=== PATIENT | female | born 1995 | race African-American/Black ===

== ENCOUNTER 2017-07-16 18:53 | Inpatient (IN) | payer MEDICAID, OTHER ==
[2017-07-16] MEDS ORDERED: Sodium Chloride 0.9% 1000 ML 1,000 ML IV STA (19:43)
[2017-07-16] MEDS ORDERED: Sodium Chloride 0.9% 1000 ML 1,000 ML ONE (19:45)
[2017-07-16 19:49] LABS: BASOPHIL % 0.1 % (0.0-0.4); Granulocytes % 89.5 % (36.0-66.0); Lymphocytes % 5.5 % (24.0-44.0); Mean Cell Volume 85.5 fl (78-100); Mean Corpuscular Hemoglobin 29.4 pg (26-32); Mean Platelet Volume 10.3 fl (6-9.5); Monocytes % 4.9 % (0.0-12.0); Platelet Count 387 K/mm3 (150-450); Red Blood Count 4.56 M/mm3 (4.1-5.4); Red Cell Distribution Width 13.9 % (11.5-14.0); White Blood Count 18.4 K/mm3 (4.0-10.5)
[2017-07-16 19:58] LABS: Collection Type CLEAN CATCH
[2017-07-16 20:01] LABS: BLOOD UREA NITROGEN 10 mg/dL (9-20); Bilirubin NEGATIVE (NEGATIVE); Blood TRACE NON-HEM Ery/ul (0-5); CHLORIDE 99 mEq/L (98-107); COMPLETE URINE MICROSCOPIC? YES; Carbon Dioxide 19.9 mEq/L (21-32); Glucose 93 MG/DL (70-110); Glucose NEGATIVE (NEGATIVE); Leukocyte Esterase 2+ (NEGATIVE); Potassium 3.9 mEq/L (3.5-5.1); SODIUM 137 mEq/L (136-145)
[2017-07-16 20:02] LABS: ALBUMIN 2.7 g/dL (3.4-5.0); ALKALINE PHOSPHATASE 225 U/L (46-116); ANION GAP 21.9 MEQ/L (5-15); SGOT/AST 109 U/L (15-37); SGPT/ALT 76 U/L (12-78); Total Protein 8.2 gm/dL (6.4-8.2)
[2017-07-16] MEDS ORDERED: XYLOCAINE 1% HCL 20 ML MDV ONE (20:08)
[2017-07-16] MEDS ORDERED: PITOCIN 30 UNITS/ LR 500 ML 500 ML IV ONE (20:08)
[2017-07-16] MEDS ORDERED: Lactated Ringers 2,000 ML IV ONE (20:08)
--- NOTE | 2017-07-16 20:10 | ERPHSYRPT ---
- History of Present Illness Time Seen by Provider: 07/16/17 19:08 Source: patient, family (grandmother) Patient Subjective Stated Complaint: last night approx 2300 pt was working at [employer] when she lifted a box from the floor weighing around 15 lbs, she began having pain in her lower back. reports at 0150 today she began vomiting and having diarrhea. states she had approx 6 episodes of vomiting and diarrhea today. also reports periods of constipation for which she has been taking a laxative. Triage Nursing Assessment: pt is aox3, pupils perrl, radial pulses strong and equal, resps easy and non labored, lung sounds clear throughout all robin, abdomen is firm. bowel sounds are present and normoactive x4. abdominal pain to the RLQ. Physician History: CC: back pain Hx: 22 y/o with LMP 3 years ago after taking depo provera. She works at [employer]. She had back pain last night after lifting. She then had V/D all day today. She has no fever. She felt like pain with menses. No vaginal bleeding. She continues to have off and on back pain today. No local doctor. Symptoms severe. She took negative tests at home. Timing/Duration: today Allergies/Adverse Reactions: aspartame Allergy (Verified 07/16/17 19:21) Hives Home Medications: Omeprazole Magnesium [Prilosec Otc] 20 mg PO DAILY 07/16/17 [History] Hx Tetanus, Diphtheria Vaccination/Date Given: No Hx Influenza Vaccination/Date Given: No Hx Pneumococcal Vaccination/Date Given: No Immunizations Up to Date: Yes - Review of Systems Constitutional: No Fever, No Chills Eyes: No Symptoms Ears, Nose, & Throat: No Symptoms Respiratory: No Cough, No Dyspnea Cardiac: No Chest Pain Abdominal/Gastrointestinal: Abdominal Pain, Nausea, Vomiting, Diarrhea Genitourinary Symptoms: No Dysuria, No , No Vaginal Bleeding, No Vaginal Discharge Musculoskeletal: Back Pain Skin: No Rash Neurological: No Headache All Other Systems: Reviewed and Negative - Past Medical History Pertinent Past Medical History: No Respiratory History: Asthma GI Medical History: GERD Other Medical History: SICKLE CELL ANEMIA TRAIT - Past Surgical History Past Surgical History: Yes Other Surgical History: TONSILLECTOMY - Social History Smoking Status: Never smoker Exposure to second hand smoke: Yes Drug Use: none Patient Lives Alone: No - Female History Hx Last Menstrual Period: 2013 Hx Now: No - Nursing Vital Signs Nursing Vital Signs: Initial Vital Signs Temperature 97.6 F 07/16/17 19:04 Pulse Rate 112 H 07/16/17 19:04 Respiratory Rate 18 07/16/17 19:04 Blood Pressure 148/93 07/16/17 19:04 O2 Sat by Pulse Oximetry 96 07/16/17 19:04 Pain Scale Pain Intensity 9 - Physical Exam General Appearance: alert Eye Exam: PERRL/EOMI Ears, Nose, Throat Exam: normal ENT inspection, moist mucous membranes Neck Exam: normal inspection, non-tender, supple Respiratory Exam: normal breath sounds Cardiovascular Exam: regular rate/rhythm Gastrointestinal/Abdomen Exam: soft, other (full abdomen, palpable uterus with fundus high, NT) Pelvic Exam: other (SVE: 4cm, 80%, vertex, bag intact) Back Exam: normal inspection, normal range of motion, No CVA tenderness, No vertebral tenderness Extremity Exam: normal inspection, normal range of motion Neurologic Exam: alert, oriented x 3, cooperative, sensation nml, No motor deficits Skin Exam: warm, dry, No rash SpO2 Interpretation: normal SpO2: 96 Procedures - Limited OB Ultrasound Indicators: abdominal pain Results: + IUP Progress: IUP FHR 130's Cephalic AUA 40 + 2 weeks gestation Limited OB sonogram per ERMD/RDMS - Course Nursing assessment & vital signs reviewed: Yes Ordered Tests: Active Orders 24 hr Category Date Time Status Clean Catch Urine Specimen STAT Care 07/16/17 19:15 Active IV Insertion STAT Care 07/16/17 19:15 Active OB >14 WKS 1st GESTATION [US] Stat Exams 07/16/17 20:00 Ordered CBC W DIFF Stat Lab 07/16/17 19:40 Results CMP Stat Lab 07/16/17 19:40 Completed HCG QUALITATIVE,SERUM Stat Lab 07/16/17 19:40 Completed UA W/ MICROSCOPIC Stat Lab 07/16/17 19:40 Results Urine Triage Profile Stat Lab 07/16/17 20:01 Ordered Transfer Order Routine Transfer 07/16/17 Ordered Medication Summary Generic Name Dose Route Start Last Admin Trade Name Freq PRN Reason Stop Dose Admin Sodium Chloride 1,000 mls @ 999 mls/hr 07/16/17 19:43 07/16/17 19:47 Sodium Chloride 0.9% 1000 Ml IV 07/16/17 20:43 999 mls/hr .Q1H1M STA Administration Discontinued Medications Generic Name Dose Route Start Last Admin Trade Name Jazmyn PRN Reason Stop Dose Admin Sodium Chloride Confirm 07/16/17 19:45 Sodium Chloride 0.9% 1000 Ml Administered 07/16/17 19:46 Dose 1,000 mls @ ud .ROUTE .K-MED ONE Lab/Rad Data: Laboratory Result Diagrams 07/16/17 19:40 07/16/17 19:40 Laboratory Results 07/16/17 07/16/17 07/16/17 Range/Units 19:40 19:40 19:40 WBC 18.4 H (4.0-10.5) K/mm3 RBC 4.56 (4.1-5.4) M/mm3 Hgb 13.4 (12.0-16.0) gm/dl Hct 39.0 (35-47) % MCV 85.5 (78-100) fl MCH 29.4 (26-32) pg MCHC 34.4 (32-36) g/dl RDW 13.9 (11.5-14.0) % Plt Count 387 (150-450) K/mm3 MPV 10.3 H (6-9.5) fl Gran % 89.5 H (36.0-66.0) % Lymphocytes % 5.5 L (24.0-44.0) % Monocytes % 4.9 (0.0-12.0) % Eosinophils % 0.0 (0.00-5.0) % Basophils % 0.1 (0.0-0.4) % Basophils # 0.01 (0-0.4) Sodium 137 (136-145) mEq/L Potassium 3.9 (3.5-5.1) mEq/L Chloride 99 (98-107) mEq/L Carbon Dioxide 19.9 L (21-32) mEq/L Anion Gap 21.9 H (5-15) MEQ/L BUN 10 (9-20) mg/dL Creatinine 0.79 (0.55-1.30) mg/dl Estimated GFR > 60 ML/MIN Glucose 93 (70-110) MG/DL Calcium 9.4 (8.5-10.1) mg/dL Total Bilirubin 1.30 H (0.2-1.0) mg/dL AST 109 H (15-37) U/L ALT 76 (12-78) U/L Alkaline Phosphatase 225 H (46-116) U/L Serum Total Protein 8.2 (6.4-8.2) gm/dL Albumin 2.7 L (3.4-5.0) g/dL Serum , Qual POSITIVE (Negative) Ur Collection Type Urine Color Urine Appearance Urine pH Ur Specific [place] Urine Protein Urine Ketones Urine Blood Urine Nitrite Urine Bilirubin Urine Urobilinogen Ur Leukocyte Esterase Urine Culture Reflexed Urine Glucose Specimen Received 07/16/17 Range/Units 19:40 WBC (4.0-10.5) K/mm3 RBC (4.1-5.4) M/mm3 Hgb (12.0-16.0) gm/dl Hct (35-47) % MCV (78-100) fl MCH (26-32) pg MCHC (32-36) g/dl RDW (11.5-14.0) % Plt Count (150-450) K/mm3 MPV (6-9.5) fl Gran % (36.0-66.0) % Lymphocytes % (24.0-44.0) % Monocytes % (0.0-12.0) % Eosinophils % (0.00-5.0) % Basophils % (0.0-0.4) % Basophils # (0-0.4) Sodium (136-145) mEq/L Potassium (3.5-5.1) mEq/L Chloride (98-107) mEq/L Carbon Dioxide (21-32) mEq/L Anion Gap (5-15) MEQ/L BUN (9-20) mg/dL Creatinine (0.55-1.30) mg/dl Estimated GFR ML/MIN Glucose (70-110) MG/DL Calcium (8.5-10.1) mg/dL Total Bilirubin (0.2-1.0) mg/dL AST (15-37) U/L ALT (12-78) U/L Alkaline Phosphatase (46-116) U/L Serum Total Protein (6.4-8.2) gm/dL Albumin (3.4-5.0) g/dL Serum , Qual (Negative) Ur Collection Type Pending Urine Color Pending Urine Appearance Pending Urine pH Pending Ur Specific [place] Pending Urine Protein Pending Urine Ketones Pending Urine Blood Pending Urine Nitrite Pending Urine Bilirubin Pending Urine Urobilinogen Pending Ur Leukocyte Esterase Pending Urine Culture Reflexed Pending Urine Glucose Pending Specimen Received Pending - Progress Progress Note: 07/16/17 20:10 Pt and grandmother informed of . Called Dr Negron [facility] distribution center assistant and will send to Labor Room. Counseled pt/family regarding: diagnosis, need for follow-up - Departure Time of Disposition: 20:10 Departure Disposition: Observation Clinical Impression: 40 weeks gestation of , Active labor at term Condition: Fair Critical Care Time: No
[2017-07-16] MEDS ORDERED: OMNIPEN 2 GM / NACL 100ML 100 ML ONE (20:19)
[2017-07-16] MEDS ORDERED: Zofran 4 MG/2 ML VIAL IV PRN (20:28)
[2017-07-16] MEDS ORDERED: XYLOCAINE 1% HCL 20 ML MDV IJ PRN (20:28)
[2017-07-16] MEDS ORDERED: OMNIPEN 2 GM / NACL 100ML 100 ML IV ONE (20:28)
[2017-07-16 20:30] LABS: Mean Cell Volume 85.8 fl (78-100); Mean Corpuscular Hemoglobin 29.6 pg (26-32); Mean Platelet Volume 9.5 fl (6-9.5); Platelet Count 368 K/mm3 (150-450); Red Blood Count 4.43 M/mm3 (4.1-5.4); Red Cell Distribution Width 13.9 % (11.5-14.0); White Blood Count 17.3 K/mm3 (4.0-10.5)
[2017-07-16] MEDS ORDERED: PITOCIN 30 UNITS/ LR 500 ML 500 ML IV SCH (20:30)
[2017-07-16] MEDS: Lactated Ringers 1,000 ML IV SCH ×2 (20:33→23:43)
[2017-07-16 20:34] LABS: ADD URINE CULTURE? YES (NO); Bacteria MODERATE /HPF (NEGATIVE); Epithelial Cells FEW /HPF (FEW); Mucus SLIGHT /HPF (NEGATIVE); WBC 50-100 /HPF (0-5)
[2017-07-16] MEDS ORDERED: Lactated Ringers 1,000 ML IV ONE (21:49)
[2017-07-16] MEDS ORDERED: Ephedrine Sulfate 50 MG/ML IV PRN (21:49)
[2017-07-16] MEDS: OB EPIDURAL NAROPIN/SUFENTANIL IN NACL EPIDURAL PRN (21:54)
[2017-07-17] MEDS: OMNIPEN 1GM / NaCl 100ML 100 ML IV SCH ×3 (01:00→08:25)
[2017-07-17] MEDS: TYLENOL EXTRA STRENGTH 500 MG PO PRN (03:27)
[2017-07-17] MEDS: Lactated Ringers 1,000 ML IV SCH (04:17)
[2017-07-17] MEDS: OB EPIDURAL NAROPIN/SUFENTANIL IN NACL EPIDURAL PRN (06:08)
--- NOTE | 2017-07-17 09:36 | XRAY ---
Indication: Back pain. Two-dimensional OB ultrasound performed. Comparison: None There is a single viable intrauterine in cephalic presentation. Normal four-chamber heart with heart rate 135 BPM. Normal three-vessel cord. Cord insertion not visualized. Visualized spine, stomach, kidneys, and bladder are unremarkable. Placenta is posterior without abruption/previa. BPD measures 9.20 cm corresponding to 37 weeks 3 days. HC measures 33.90 cm corresponding to 39 weeks 0 days. AC measures 33.49 cm corresponding to 37 weeks 3 days. FL measures 7.59 cm corresponding to 38 weeks 6 days. LOUIE is 9.8 cm. Impression: Single viable intrauterine with mean gestational age 38 weeks 1 day. Expected date confinement is July 29, 2017. Comment: Preliminary report was given.
[2017-07-17] MEDS ORDERED: NORCO 5/325 MG PO PRN (10:52)
[2017-07-17] MEDS ORDERED: Adacel Vial IM ONE (10:52)
[2017-07-17] MEDS ORDERED: Anucort-HC SUPPOSITORY PR PRN (10:52)
[2017-07-17] MEDS ORDERED: Mylicon 80MG PO PRN (10:52)
[2017-07-17] MEDS ORDERED: Dulcolax 10 MG SUPP PR PRN (10:52)
[2017-07-17] MEDS ORDERED: TUCKS TP PRN (10:52)
[2017-07-17] MEDS ORDERED: Restoril 15 MG PO PRN (10:52)
[2017-07-17] MEDS ORDERED: CORTISONE 1% CREAM TP PRN (10:52)
[2017-07-17] MEDS: Dermoplast Spray TP PRN (17:04)
[2017-07-17] MEDS: MOTRIN 400 MG PO PRN (20:23)
[2017-07-17] MEDS: Colace 100 MG PO SCH (21:10)
[2017-07-18] MEDS: TYLENOL EXTRA STRENGTH 500 MG PO PRN ×2 (01:23→12:33)
[2017-07-18 01:54] LABS: Hepatitis B Sur Ag Screen Non Reactive (Non Reactive)
[2017-07-18 05:41] LABS: Mean Cell Volume 86.9 fl (78-100); Mean Platelet Volume 9.5 fl (6-9.5); Platelet Count 261 K/mm3 (150-450); Red Blood Count 3.21 M/mm3 (4.1-5.4); Red Cell Distribution Width 13.7 % (11.5-14.0); White Blood Count 14.6 K/mm3 (4.0-10.5)
[2017-07-18 05:43] LABS: Mean Corpuscular Hemoglobin 29.5 pg (26-32)
[2017-07-18 06:12] LABS: Eosinophil 1 % (0.00-3.0); Platelet Estimate NORMAL (NORMAL); Total Cells Counted 100; Toxic Granulation 1+
[2017-07-18] MEDS: Colace 100 MG PO SCH ×2 (09:13→21:28)
[2017-07-18] MEDS: FERREX 150 PO SCH (09:14)
[2017-07-18] MEDS: MOTRIN 400 MG PO PRN (09:14)
[2017-07-18] MEDS: BACTRIM DS TABLET PO SCH ×2 (13:09→21:28)
[2017-07-18] MEDS ORDERED: M-M-R II Vaccine With Diluent SQ ONE (23:39)
[2017-07-19] MEDS: MOTRIN 400 MG PO PRN (00:01)
[2017-07-19] MEDS: TYLENOL EXTRA STRENGTH 500 MG PO PRN ×2 (02:20→14:13)
--- NOTE | 2017-07-19 08:25 | PCM.DS ---
Discharge Summary Date of Admission: 07/16/17 20:07 Admitting Physician: GUILLAUME CORTEZ Consults: Consults on Case 07/16/17 21:49 Notify Anesthesia Provider PRN Primary Care Provider: GUILLAUME CORTEZ Allergies Allergies aspartame Allergy (Verified 07/16/17 21:02) Hives latex Adverse Reaction (Verified 07/17/17 05:49) latex condoms make her have swelling and redness of vagina. Hospital Summary - Hospital Course Hospital Course: Pt admitted in labor, did not know she was ! Delivered viable 7lb 120z male vaginally. Denies dizziness. Pain controlled with tylenol. Bottle feeding. Bleeding is decreasing. Wants to go home. - Vitals & Intake/Output Vital Signs: Vital Signs Temperature 98.6 F 07/19/17 02:00 Pulse Rate 88 07/19/17 02:00 Respiratory Rate 20 07/19/17 02:00 Blood Pressure 135/88 07/19/17 02:00 O2 Sat by Pulse Oximetry 98 07/18/17 14:00 Oxygen-Last Documented O2 Percentage 100% Intake & Output: Intake & Output 07/16/17 07/17/17 07/18/17 07/19/17 11:59 11:59 11:59 11:59 Intake Total 3537 850 1650 Output Total 300 Balance 3237 850 1650 Weight 108.409 kg - Lab Result Diagrams: 07/18/17 05:11 07/16/17 19:40 Lab Results-Last 24 Hrs: Lab Results-Last 24 Hours 07/16/17 Range/Units 20:20 HIV Ag/Ab Combo Qual Non Reactive (Non Reactive) HIV Ag/Ab Interpret See Result Note: Rubella Immune Status Equivocal H Rubella IgG Antibody 6 IU/mL Micro Results-Entire Visit: Microbiology 07/16/17 23:00 Urine Culture - Final Catherized Escherichia Coli Discharge Exam General Appearance: no apparent distress, alert, obese Neurologic Exam: oriented x 3, cooperative Skin Exam: normal color, warm, dry Respiratory Exam: normal breath sounds, lungs clear, No crackles/rales, No rhonchi, No wheezing Cardiovascular Exam: regular rate/rhythm, normal heart sounds, No murmur Gastrointestinal/Abdomen Exam: soft, other (fundus firm under umbilicus) Extremity Exam: normal inspection, No pedal edema, No swelling Final Diagnosis/Problem List - Final Discharge Diagnosis/Problem (1) Vaginal delivery Current Visit: Yes Status: Acute Assessment & Plan: Doing great, home today. f/u wtih Dr. Cortez in 4-6 wks. - Discharge Disposition: Home, Self-Care Condition: Fair Prescriptions: New Smz/Tmp Ds Tablet [Bactrim Ds Tablet] 1 tab PO BID #12 tablet Ferrous Sulfate 325 mg PO DAILY #30 tablet Continue Omeprazole Magnesium [Prilosec Otc] 20 mg PO DAILY Follow up with: GUILLAUME CORTEZ MD [Primary Care Provider] - 1 Week
[2017-07-19] MEDS: Colace 100 MG PO SCH (09:41)
[2017-07-19] MEDS: FERREX 150 PO SCH (09:41)
[2017-07-19] MEDS: BACTRIM DS TABLET PO SCH (09:42)
[2017-07-19 09:57] VITALS: PULSE 92; O2SAT 99
[2017-07-19] MEDS: Dermoplast Spray TP PRN (10:11)
[2017-07-19 14:44] VITALS: BP 124/81
== END 2017-07-19 15:08 | disposition home or self-care (01) | DRG 775 ==
LOC: ED 18:53 → OB 20:07
PROVIDERS: ADMIT Family Medicine; ATTEND Family Medicine
PROC: 10E0XZZ Delivery of Products of Conception, External Approach (ICD-10-PCS; principal; 2017-07-17)
DX: O80 Encounter for full-term uncomplicated delivery (principal); Z3A.38 38 weeks gestation of pregnancy; Z37.0 Single live birth
CPT/HCPCS: 01967; 36000; 36415; 76805; 76815; 80053; 80055; 80307; 81000; 84703; 85025; 87077; 87086; 87186; 90471; 90707; 90715; 94799; 96360; 96372; 99285; G0378; J0290; J2590; J2795; A9270-GY

== ENCOUNTER 2019-09-18 19:35 | Emergency (ER) | payer OTHER ==
[2019-09-18 19:55] VITALS: PULSE 140
--- NOTE | 2019-09-18 20:52 | ERPHSYRPT ---
- History of Present Illness Time Seen by Provider: 09/18/19 19:55 Source: patient, family Exam Limitations: no limitations Patient Subjective Stated Complaint: pt has had flu like symptoms since this am , pt states she is 32 weeks and is concernes about her fever of 100.8 Triage Nursing Assessment: pt rates pain as 10/10 generally to body Physician History: cough, congestion, bodyaches, fever since this morning. patient is 32 weeks . Timing/Duration: today Severity: moderate Modifying Factors: Improves With: medication Associated Symptoms: nausea, cough, chills, fever, malaise, No abdominal pain, No shortness of breath, No heartburn, No diaphoresis, No chest pain, No headaches, No loss of appetite, No rash, No syncope Allergies/Adverse Reactions: aspartame Allergy (Verified 09/18/19 19:55) Hives latex Adverse Reaction (Verified 09/18/19 19:55) latex condoms make her have swelling and redness of vagina. Hx Tetanus, Diphtheria Vaccination/Date Given: No Hx Influenza Vaccination/Date Given: No Hx Pneumococcal Vaccination/Date Given: No - Review of Systems Constitutional: Chills Eyes: No Symptoms Ears, Nose, & Throat: No Symptoms Respiratory: Cough, No Dyspnea Cardiac: No Chest Pain, No Edema, No Syncope Abdominal/Gastrointestinal: No Abdominal Pain, No Nausea, No Vomiting, No Diarrhea Genitourinary Symptoms: No Dysuria Musculoskeletal: No Back Pain, No Neck Pain Skin: No Rash Neurological: No Dizziness, No Focal Weakness, No Sensory Changes Psychological: No Symptoms Endocrine: No Symptoms All Other Systems: Reviewed and Negative - Past Medical History Pertinent Past Medical History: No Cardiac History: No Pertinent History Respiratory History: Asthma Musculoskeletal History: No Pertinent History GI Medical History: GERD Psycho-Social History: No Pertinent History Female Reproductive Disorders: No Pertinent History Other Medical History: SICKLE CELL ANEMIA TRAIT - Past Surgical History Past Surgical History: Yes Neuro Surgical History: No Pertinent History Cardiac: No Pertinent History Respiratory: No Pertinent History Gastrointestinal: No Pertinent History Genitourinary: No Pertinent History Musculoskeletal: No Pertinent History Female Surgical History: No Pertinent History Other Surgical History: TONSILLECTOMY - Social History Smoking Status: Never smoker Exposure to second hand smoke: No Drug Use: none Patient Lives Alone: No - Female History Hx Now: Yes Expected Date of Delivery: 11/10/19 - Nursing Vital Signs Nursing Vital Signs: Initial Vital Signs Temperature 100.8 F 09/18/19 19:44 Pulse Rate 140 H 09/18/19 19:44 Respiratory Rate 18 09/18/19 19:44 Blood Pressure 102/60 09/18/19 19:44 O2 Sat by Pulse Oximetry 97 09/18/19 19:44 Pain Scale Pain Intensity 10 - Physical Exam General Appearance: no apparent distress, alert Eye Exam: PERRL/EOMI, eyes nml inspection Ears, Nose, Throat Exam: normal ENT inspection, TMs normal, moist mucous membranes, pharyngeal erythema Neck Exam: normal inspection, non-tender, supple, full range of motion Respiratory Exam: normal breath sounds, lungs clear, No respiratory distress Cardiovascular Exam: regular rate/rhythm, normal heart sounds, normal peripheral pulses Gastrointestinal/Abdomen Exam: soft, normal bowel sounds, other (gravid uterus) , No tenderness, No mass Back Exam: normal inspection, normal range of motion, No CVA tenderness, No vertebral tenderness Extremity Exam: normal inspection, normal range of motion, pelvis stable Neurologic Exam: alert, oriented x 3, cooperative, normal mood/affect, nml cerebellar function, nml station & gait, sensation nml, No motor deficits Skin Exam: normal color, warm, dry, No rash Lymphatic Exam: No adenopathy SpO2: 97 - Course Nursing assessment & vital signs reviewed: Yes Ordered Tests: Active Orders 24 hr Category Date Time Status CULTURE,URINE Stat Lab 09/18/19 20:10 Received UA W/RFX UR CULTURE Stat Lab 09/18/19 20:10 Completed Medication Summary Discontinued Medications Generic Name Dose Route Start Last Admin Trade Name Freq PRN Reason Stop Dose Admin Acetaminophen 500 mg 09/18/19 20:52 Tylenol Extra Strength 500 Mg PO 09/18/19 20:53 STAT STA Lab/Rad Data: Laboratory Results 09/18/19 09/18/19 Range/Units 20:10 20:07 Urine Color YELLOW (YELLOW) Urine Appearance CLOUDY (CLEAR) Urine pH 7.0 (5-6) Ur Specific [place] 1.009 (1.005-1.025) Urine Protein NEGATIVE (Negative) Urine Ketones NEGATIVE (NEGATIVE) Urine Blood SMALL (0-5) Spike/ul Urine Nitrite NEGATIVE (NEGATIVE) Urine Bilirubin NEGATIVE (NEGATIVE) Urine Urobilinogen 2 (0-1) mg/dL Ur Leukocyte Esterase LARGE (NEGATIVE) Urine WBC (Auto) 51-100 (0-5) /HPF Urine RBC (Auto) 3-5 (0-2) /HPF U Hyaline Cast (Auto) 0-2 (0-2) /LPF U Epithel Cells (Auto) MODERATE (FEW) /HPF Urine Bacteria (Auto) RARE (NEGATIVE) /HPF Unidentified Crystals 25-50 (NEGATIVE) /HPF Other Casts (Auto) 0-2 (NEGATIVE) /LPF Urine Mucus (Auto) SLIGHT (NEGATIVE) /HPF Urine Culture Reflexed YES (NO) Urine Glucose NEGATIVE (NEGATIVE) mg/dL Influenza Type A Ag NEGATIVE (NEGATIVE) Influenza Type B Ag NEGATIVE (NEGATIVE) RSV (PCR) NEGATIVE (Negative) Group A Strep Antibody NEGATIVE (NEGATIVE) - Progress Progress: improved Progress Note: 09/18/19 21:10 noted life or limb and condition on discharge. Advised patient to follow up with LOW VOLTAGE TECHNICIAN as soon as possible Counseled pt/family regarding: lab results, diagnosis, need for follow-up - Departure Departure Disposition: Home Clinical Impression: UTI (urinary tract infection) Qualifiers: Urinary tract infection type: site unspecified Hematuria presence: without hematuria Qualified Code(s): N39.0 - Urinary tract infection, site not specified Upper respiratory infection Qualifiers: URI type: unspecified URI Qualified Code(s): J06.9 - Acute upper respiratory infection, unspecified Condition: Good Critical Care Time: No Referrals: JL MATHEWS [Primary Care Provider] - 09/20/19 Instructions: Fever, Adult (DC), Urinary Tract Infections in Adults, Viral Upper Respiratory Infection, Adult (DC) Additional Instructions: See. LOW VOLTAGE TECHNICIAN as soon as possible Prescriptions: Amoxicillin 500 mg PO TID 7 Days #21 tablet
[2019-09-18 20:53] LABS: INFLUENZA A NEGATIVE (NEGATIVE); INFLUENZA B NEGATIVE (NEGATIVE); RESPIRATORY SYNCTIAL VIRUS NEGATIVE (Negative)
[2019-09-18 21:04] LABS: Appearance CLOUDY (CLEAR); Bacteria RARE /HPF (NEGATIVE); Bilirubin NEGATIVE (NEGATIVE); Blood SMALL Ery/ul (0-5); Crystals Unidentified 25-50 /HPF (NEGATIVE); Epithelial Cells MODERATE /HPF (FEW); Glucose NEGATIVE (NEGATIVE); Hyaline Casts 0-2 /LPF (0-2); Ketones NEGATIVE (NEGATIVE); Leukocyte Esterase LARGE (NEGATIVE); Mucus SLIGHT /HPF (NEGATIVE); Nitrite NEGATIVE (NEGATIVE); Protein,Urine Dip NEGATIVE (Negative); Specific Gravity 1.009 (1.005-1.025); Urobilinogen 2 mg/dL (0-1); WBC 51-100 /HPF (0-5)
[2019-09-18] MEDS ORDERED: TYLENOL EXTRA STRENGTH 500 MG ONE (21:27)
[2019-09-18] MEDS ORDERED: AMOXIL 500 MG ONE (21:27)
[2019-09-18] MEDS: TYLENOL EXTRA STRENGTH 500 MG PO STA (21:29)
[2019-09-18] MEDS: AMOXIL 500 MG PO ONE (21:30)
[2019-09-18 21:55] VITALS: BP 125/64; O2SAT 98
== END 2019-09-18 21:54 | disposition home or self-care (01) ==
LOC: ED 19:35
DX: N39.0 Urinary tract infection, site not specified (principal); J06.9 Acute upper respiratory infection, unspecified
CPT/HCPCS: 81001; 87077; 87086; 87186; 87631; 87651; 99283; A9270-GY

== ENCOUNTER 2019-09-28 13:43 | Observation (INO) | payer OTHER ==
[2019-09-28] MEDS ORDERED: Lactated Ringers 1,000 ML IV ONE (14:06)
[2019-09-28] MEDS ORDERED: ROCEPHIN 1 Gm-D5w 50 ml Bag** 1 G/50 ML IVPB IV SCH ×2 (14:15→16:00)
[2019-09-28 14:24] LABS: Absolute Neutrophil Ct (ANC) 8.89 (1.4-6.9); BASOPHIL % 0.2 % (0.0-0.4); Basophil (Absolute #) 0.02 (0-0.4); Eosinophil % 1.8 % (0.00-5.0); Eosinophil (Absolute #) 0.21 (0-0.5); Hematocrit 35.3 % (35-47); Hemoglobin 12.4 gm/dl (12.0-16.0); Lymphocyte (Absolute #) 2.01 (1.0-4.6); Lymphocytes % 17.1 % (24.0-44.0); Mean Cell Volume 85.1 fl (78-100); Mean Corpuscular Hemoglobin 29.9 pg (26-32); Mean Corpuscular Hgb Concent. 35.1 g/dl (32-36); Mean Platelet Volume 8.9 fl (7.5-11.0); Monocyte (Absolute #) 0.64 (0.0-1.3); Monocytes % 5.4 % (0.0-12.0); Neutrophil % 75.5 % (36.0-66.0); Platelet Count 369 K/mm3 (150-450); Red Blood Count 4.15 M/mm3 (4.1-5.4); Red Cell Distribution Width 13.4 % (11.5-14.0); White Blood Count 11.8 K/mm3 (4.0-10.5)
[2019-09-28 14:37] LABS: ALBUMIN 3.8 g/dL (3.5-5.0); ALKALINE PHOSPHATASE 113 U/L (38-126); ANION GAP 12.4 MEQ/L (5-15); BLOOD UREA NITROGEN 2 mg/dL (7-17); CHLORIDE 107 mmol/L (98-107); Calcium 9.2 mg/dL (8.4-10.2); Carbon Dioxide 21 mmol/L (22-30); Creatinine 1 0.41 mg/dL (0.52-1.04); Glucose 86 mg/dL (74-106); MAGNESIUM 1.7 mg/dL (1.6-2.3); Potassium 3.9 mmol/L (3.5-5.1); SGOT/AST 34 U/L (14-36); SGPT/ALT 28 U/L (0-35); SODIUM 136 mmol/L (137-145); Total Protein 7.7 g/dL (6.3-8.2); Uric Acid 4.2 mg/dL (2.6-6.0)
[2019-09-28 14:56] VITALS: BP 117/71; PULSE 91
--- NOTE | 2019-09-28 14:58 | XRAY ---
Indication: Size greater than dates. 2-dimensional OB ultrasound performed. Comparison: None for this . There is a single viable intrauterine in cephalic presentation. heart rate 138 BPM. Posterior placenta without abruption/previa. BPD measures 8.76 cm corresponding to 35 weeks 3 days. HC measures 32.08 cm corresponding to 36 weeks 1 day. AC measures 29.09 cm corresponding to 33 weeks 1 day. FL measures 6.77 cm corresponding to 34 weeks 6 days. Estimated weight 5 lbs. 3 oz., +/-12 ounces. Approximate 51 percentile. LOUIE is 13.8 cm. Impression: Single viable intrauterine with mean gestational age 34 weeks 6 days. Expected date confinement is November 03, 2019.
== END 2019-09-28 18:45 | disposition home or self-care (01) ==
LOC: OB 13:43
PROVIDERS: ADMIT Family Medicine; ATTEND Family Medicine
DX: Z34.83 Encounter for supervision of other normal pregnancy, third trimester (principal)
CPT/HCPCS: 36415; 76815; 80053; 83735; 84550; 85025; G0378; J0696

== ENCOUNTER 2019-10-04 16:56 | Observation (INO) | payer OTHER ==
[2019-10-04] MEDS ORDERED: Lactated Ringers 1,000 ML IV SCH ×2 (18:00→21:00)
[2019-10-04 18:13] LABS: Mean Cell Volume 85.2 fl (78-100); Mean Corpuscular Hemoglobin 29.2 pg (26-32); Mean Corpuscular Hgb Concent. 34.3 g/dl (32-36); Mean Platelet Volume 9.3 fl (7.5-11.0); Platelet Count 365 K/mm3 (150-450); Red Blood Count 4.11 M/mm3 (4.1-5.4); Red Cell Distribution Width 13.4 % (11.5-14.0); White Blood Count 12.6 K/mm3 (4.0-10.5)
[2019-10-04 18:42] LABS: Amphetamine,Urine NEGATIVE (NEGATIVE); Barbiturate,Urine NEGATIVE (NEGATIVE); Benzodiazepine,Urine NEGATIVE (NEGATIVE); Cocaine,Urine NEGATIVE (NEGATIVE); Methadone,Urine NEGATIVE (NEGATIVE); Opiate,Urine NEGATIVE (NEGATIVE); PCP,Urine NEGATIVE (NEGATIVE); THC,Urine NEGATIVE (NEGATIVE)
[2019-10-04] MEDS ORDERED: Phenergan 25 MG INJ IV ONE (19:00)
[2019-10-04 19:27] LABS: ALKALINE PHOSPHATASE 108 U/L (38-126); ANION GAP 13.5 MEQ/L (5-15); BLOOD UREA NITROGEN 6 mg/dL (7-17); CHLORIDE 104 mmol/L (98-107); Calcium 9.4 mg/dL (8.4-10.2); Carbon Dioxide 22 mmol/L (22-30); Creatinine 1 0.45 mg/dL (0.52-1.04); Glucose 83 mg/dL (74-106); Potassium 3.9 mmol/L (3.5-5.1); SGOT/AST 26 U/L (14-36); SGPT/ALT 17 U/L (0-35); SODIUM 136 mmol/L (137-145)
[2019-10-04] MEDS ORDERED: Phenergan 25 MG INJ IV PRN (20:30)
[2019-10-04] MEDS ORDERED: MORPHINE SULFATE 4 MG INJ ONE (20:36)
[2019-10-04] MEDS ORDERED: MORPHINE SULFATE 4 MG INJ IV ONE (20:40)
[2019-10-04] MEDS ORDERED: TYLENOL 325 MG PO PRN (20:40)
[2019-10-04] MEDS: KEFLEX 500 MG PO SCH (21:36)
[2019-10-04 22:16] VITALS: O2SAT 98
[2019-10-05 08:16] VITALS: BP 101/65; PULSE 88
[2019-10-05] MEDS: KEFLEX 500 MG PO SCH (09:00)
== END 2019-10-05 09:10 | disposition home or self-care (01) ==
LOC: OB 16:56
PROVIDERS: ADMIT Family Medicine; ATTEND Family Medicine
DX: Z34.83 Encounter for supervision of other normal pregnancy, third trimester (principal)
CPT/HCPCS: 36415; 59025; 80053; 80307; 84550; 85027; G0378; J2270; J2550; A9270-GY

== ENCOUNTER 2019-10-19 13:30 | Observation (INO) | payer OTHER ==
[2019-10-19 13:55] VITALS: BP 116/72; PULSE 100
== END 2019-10-19 14:18 | disposition home or self-care (01) ==
LOC: OB 13:30
PROVIDERS: ADMIT Family Medicine; ATTEND Family Medicine
DX: Z34.83 Encounter for supervision of other normal pregnancy, third trimester (principal)
CPT/HCPCS: 59025; G0378

== ENCOUNTER 2019-10-22 02:23 | Observation (INO) | payer OTHER ==
[2019-10-22] MEDS ORDERED: XYLOCAINE 1% HCL 20 ML MDV IJ PRN (02:41)
[2019-10-22] MEDS ORDERED: TYLENOL EXTRA STRENGTH 500 MG PO PRN (02:41)
[2019-10-22] MEDS ORDERED: PITOCIN 30 UNITS/ LR 500 ML 500 ML IV SCH (03:00)
[2019-10-22 03:12] LABS: Absolute Neutrophil Ct (ANC) 14.73 (1.4-6.9); BASOPHIL % 0.1 % (0.0-0.4); Basophil (Absolute #) 0.01 (0-0.4); Eosinophil % 0.7 % (0.00-5.0); Eosinophil (Absolute #) 0.13 (0-0.5); Hematocrit 35.1 % (35-47); Hemoglobin 12.3 gm/dl (12.0-16.0); Lymphocyte (Absolute #) 2.28 (1.0-4.6); Lymphocytes % 12.7 % (24.0-44.0); Mean Cell Volume 84.8 fl (78-100); Mean Corpuscular Hemoglobin 29.7 pg (26-32); Mean Platelet Volume 9.2 fl (7.5-11.0); Monocyte (Absolute #) 0.84 (0.0-1.3); Monocytes % 4.7 % (0.0-12.0); Neutrophil % 81.8 % (36.0-66.0); Platelet Count 386 K/mm3 (150-450); Red Blood Count 4.14 M/mm3 (4.1-5.4); Red Cell Distribution Width 13.7 % (11.5-14.0)
[2019-10-22] MEDS ORDERED: OMNIPEN 2 GM / NACL 100ML 100 ML ONE (03:12)
[2019-10-22] MEDS: Lactated Ringers 1,000 ML IV SCH ×2 (03:16→12:49)
[2019-10-22] MEDS ORDERED: OMNIPEN 2 GM IV ONE (03:30)
[2019-10-22 03:43] LABS: Amphetamine,Urine NEGATIVE (NEGATIVE); Barbiturate,Urine NEGATIVE (NEGATIVE); Benzodiazepine,Urine NEGATIVE (NEGATIVE); Cocaine,Urine NEGATIVE (NEGATIVE); Methadone,Urine NEGATIVE (NEGATIVE); Opiate,Urine NEGATIVE (NEGATIVE); PCP,Urine NEGATIVE (NEGATIVE); THC,Urine NEGATIVE (NEGATIVE)
[2019-10-22] MEDS: OMNIPEN 1GM / NaCl 100ML 100 ML IV SCH ×3 (07:46→15:04)
--- NOTE | 2019-10-22 12:15 | XRAY ---
Indication: Possible rupture of membranes. Ultrasound biophysical profile study was performed. There is a single viable intrauterine with heart rate 128 BPM. Four-quadrant LOUIE is 19.8 cm. 2 points given for breathing, movements, tone, and qualitative amniotic fluid volume. Impression: Total biophysical profile score is 8 out of 8.
[2019-10-22 17:13] VITALS: PULSE 86
[2019-10-22 17:35] VITALS: BP 120/77
== END 2019-10-22 16:30 | disposition home or self-care (01) ==
LOC: EEVIPCON 02:23 → OB 02:23
PROVIDERS: ADMIT Family Medicine; ATTEND Family Medicine
DX: Z34.83 Encounter for supervision of other normal pregnancy, third trimester (principal)
CPT/HCPCS: 36415; 76819; 80307; 85025; 87340; G0378; J0290

== ENCOUNTER 2019-10-25 15:12 | Observation (INO) | payer OTHER ==
[2019-10-25 16:07] VITALS: BP 109/69; PULSE 106
[2019-10-25 16:09] LABS: Appearance SLIGHTLY CLOUDY (CLEAR); Bacteria FEW /HPF (NEGATIVE); Bilirubin NEGATIVE (NEGATIVE); Blood NEGATIVE Ery/ul (0-5); Epithelial Cells FEW /HPF (FEW); Glucose NEGATIVE (NEGATIVE); Ketones NEGATIVE (NEGATIVE); Leukocyte Esterase LARGE (NEGATIVE); Nitrite NEGATIVE (NEGATIVE); Protein,Urine Dip NEGATIVE (Negative); Specific Gravity 1.012 (1.005-1.025); Urobilinogen 4 mg/dL (0-1)
[2019-10-25 16:56] LABS: Amphetamine,Urine NEGATIVE (NEGATIVE); Barbiturate,Urine NEGATIVE (NEGATIVE); Benzodiazepine,Urine NEGATIVE (NEGATIVE); Cocaine,Urine NEGATIVE (NEGATIVE); Methadone,Urine NEGATIVE (NEGATIVE); Opiate,Urine NEGATIVE (NEGATIVE); PCP,Urine NEGATIVE (NEGATIVE); THC,Urine NEGATIVE (NEGATIVE)
== END 2019-10-25 17:35 | disposition home or self-care (01) ==
LOC: OB 15:12
PROVIDERS: ADMIT Family Medicine; ATTEND Family Medicine
DX: Z34.83 Encounter for supervision of other normal pregnancy, third trimester (principal)
CPT/HCPCS: 80307; 81001; 87086; G0378

== ENCOUNTER 2019-11-05 04:20 | Inpatient (IN) | payer OTHER ==
[2019-11-05] MEDS ORDERED: Cervidil 10 MG VAG SCH (22:00)
[2019-11-05] MEDS ORDERED: Zofran 4 MG/2 ML VIAL IV PRN (22:00)
[2019-11-05] MEDS ORDERED: BRETHINE 1 MG/ML SQ PRN (22:00)
[2019-11-05 22:34] LABS: Amphetamine,Urine NEGATIVE (NEGATIVE); Barbiturate,Urine NEGATIVE (NEGATIVE); Benzodiazepine,Urine NEGATIVE (NEGATIVE); Cocaine,Urine NEGATIVE (NEGATIVE); Methadone,Urine NEGATIVE (NEGATIVE); Opiate,Urine NEGATIVE (NEGATIVE); PCP,Urine NEGATIVE (NEGATIVE); THC,Urine NEGATIVE (NEGATIVE)
[2019-11-05 22:52] LABS: Absolute Neutrophil Ct (ANC) 9.44 (1.4-6.9); BASOPHIL % 0.1 % (0.0-0.4); Basophil (Absolute #) 0.01 (0-0.4); Eosinophil % 1.3 % (0.00-5.0); Eosinophil (Absolute #) 0.16 (0-0.5); Hematocrit 36.5 % (35-47); Hemoglobin 12.9 gm/dl (12.0-16.0); Lymphocyte (Absolute #) 2.04 (1.0-4.6); Lymphocytes % 16.4 % (24.0-44.0); Mean Cell Volume 84.7 fl (78-100); Mean Corpuscular Hemoglobin 29.9 pg (26-32); Mean Corpuscular Hgb Concent. 35.3 g/dl (32-36); Mean Platelet Volume 9.6 fl (7.5-11.0); Monocyte (Absolute #) 0.81 (0.0-1.3); Monocytes % 6.5 % (0.0-12.0); Neutrophil % 75.7 % (36.0-66.0); Platelet Count 352 K/mm3 (150-450); Red Blood Count 4.31 M/mm3 (4.1-5.4); Red Cell Distribution Width 13.6 % (11.5-14.0); White Blood Count 12.5 K/mm3 (4.0-10.5)
[2019-11-06] MEDS: Lactated Ringers 1,000 ML IV SCH ×5 (03:00→10:09)
[2019-11-06] MEDS ORDERED: Norco 10/325 MG Tablet PO ONE (03:01)
[2019-11-06] MEDS ORDERED: Nubain 10 MG/ML IV ONE (03:42)
[2019-11-06] MEDS ORDERED: OMNIPEN 2 GM / NACL 100ML 100 ML IV ONE (04:00)
[2019-11-06] MEDS ORDERED: Ephedrine Sulfate 50 MG/ML IV PRN (07:52)
[2019-11-06] MEDS ORDERED: Lactated Ringers 1,000 ML IV ONE (07:52)
[2019-11-06] MEDS ORDERED: OB EPIDURAL NAROPIN/SUFENTANIL IN NACL EPIDURAL PRN (07:52)
[2019-11-06] MEDS ORDERED: OMNIPEN 1GM / NaCl 100ML 100 ML IV SCH (08:00)
[2019-11-06] MEDS ORDERED: PITOCIN 30 UNITS/ LR 500 ML 500 ML IV SCH (10:00)
[2019-11-06] MEDS ORDERED: XYLOCAINE 1% HCL 20 ML MDV IJ PRN (10:00)
[2019-11-06] MEDS ORDERED: Ambien 10 MG PO PRN (11:22)
[2019-11-06] MEDS ORDERED: Mylicon 80MG PO PRN (11:22)
[2019-11-06] MEDS ORDERED: LANSINOH 40 GM TOP PRN (11:22)
[2019-11-06] MEDS ORDERED: Dermoplast Spray TP PRN (11:22)
[2019-11-06] MEDS ORDERED: NORCO 5/325 MG PO PRN (11:22)
[2019-11-06] MEDS ORDERED: Dulcolax 10 MG SUPP PR PRN (11:22)
[2019-11-06] MEDS ORDERED: Anucort-HC SUPPOSITORY PR PRN (11:22)
[2019-11-06] MEDS ORDERED: CORTISONE 1% CREAM TP PRN (11:22)
[2019-11-06] MEDS ORDERED: TUCKS TP PRN (11:22)
[2019-11-06] MEDS ORDERED: M-M-R II Vaccine With Diluent SQ ONE (15:00)
[2019-11-06 15:35] LABS: ABO TYPING O; RH TYPING POSITIVE
[2019-11-06 15:53] LABS: Antibody Screen NEGATIVE (NEGATIVE)
[2019-11-06] MEDS: TYLENOL EXTRA STRENGTH 500 MG PO PRN (18:35)
[2019-11-06] MEDS: MOTRIN 400 MG PO PRN (21:25)
[2019-11-06] MEDS: Colace 100 MG PO SCH (21:26)
[2019-11-07] MEDS: TYLENOL EXTRA STRENGTH 500 MG PO PRN ×3 (01:33→21:46)
[2019-11-07 05:02] LABS: Absolute Neutrophil Ct (ANC) 9.84 (1.4-6.9); BASOPHIL % 0.1 % (0.0-0.4); Basophil (Absolute #) 0.01 (0-0.4); Eosinophil % 0.9 % (0.00-5.0); Eosinophil (Absolute #) 0.13 (0-0.5); Hematocrit 30.8 % (35-47); Hemoglobin 10.5 gm/dl (12.0-16.0); Lymphocyte (Absolute #) 3.09 (1.0-4.6); Lymphocytes % 22.1 % (24.0-44.0); Mean Cell Volume 86.5 fl (78-100); Mean Corpuscular Hemoglobin 29.5 pg (26-32); Mean Corpuscular Hgb Concent. 34.1 g/dl (32-36); Mean Platelet Volume 9.7 fl (7.5-11.0); Monocytes % 6.4 % (0.0-12.0); Neutrophil % 70.5 % (36.0-66.0); Platelet Count 290 K/mm3 (150-450); Red Blood Count 3.56 M/mm3 (4.1-5.4); Red Cell Distribution Width 13.6 % (11.5-14.0)
[2019-11-07] MEDS: MOTRIN 400 MG PO PRN ×2 (07:55→20:07)
--- NOTE | 2019-11-07 09:02 | PCM.NOTE ---
Date and Time: 11/07/1958 Subjective Assessment: Pt is 24 yo now s/p yesterday. No dizziness. Alejandra po. Bottle feeding. - Review of Systems Constitutional: No Fever Abdominal/Gastrointestinal: No Vomiting Objective Exam General Appearance: no apparent distress, alert Neurologic Exam: oriented x 3, cooperative Skin Exam: normal color, warm, dry, No rash Respiratory Exam: normal breath sounds, lungs clear, No crackles/rales, No rhonchi Cardiovascular Exam: regular rate/rhythm, normal heart sounds, No murmur Gastrointestinal/Abdomen Exam: soft, normal bowel sounds, other (fundus firm under umbilicus) Extremity Exam: normal inspection, No pedal edema, No swelling Back Exam: normal inspection, No rash OBJECTIVE DATA Vital Signs: Vital Signs - 24 hr Temp Pulse Resp BP BP Pulse Ox 11/07/19 08:00 97.4 F 71 18 103/74 11/07/19 02:00 98.5 F 76 18 116/65 93 L 11/06/19 20:00 98.5 F 87 18 117/76 94 L 11/06/19 19:00 96 H 18 121/77 11/06/19 15:00 96 H 18 121/77 11/06/19 14:00 96 H 20 121/77 11/06/19 13:00 96 H 20 121/77 11/06/19 11:45 105 H 20 131/65 11/06/19 11:30 104 H 20 143/72 11/06/19 11:15 109 H 20 127/71 11/06/19 11:00 115 H 22 133/74 11/06/19 10:30 24 11/06/19 10:00 20 11/06/19 09:30 86 20 131/82 99 11/06/19 09:00 106 H 20 116/77 100 Pain Assessment - Last Documented Pain Intensity [Lower Medial] 2 Pain Intensity 3 Pain Scale Used 0-10 Pain Scale Intake and Output: Intake & Output 11/04/19 11/05/19 11/06/19 11/07/19 11:59 11:59 11:59 11:59 Intake Total 5858 2350 Balance 5858 2350 Weight 115.666 kg Lab Results: Lab Results-Last 24 Hours 11/05/19 11/06/19 11/07/19 Range/Units 22:45 14:29 04:15 WBC 14.0 H (4.0-10.5) K/mm3 RBC 3.56 L (4.1-5.4) M/mm3 Hgb 10.5 L (12.0-16.0) gm/dl Hct 30.8 L (35-47) % MCV 86.5 (78-100) fl MCH 29.5 (26-32) pg MCHC 34.1 (32-36) g/dl RDW 13.6 (11.5-14.0) % Plt Count 290 (150-450) K/mm3 MPV 9.7 (7.5-11.0) fl Gran % 70.5 H (36.0-66.0) % Eos # (Auto) 0.13 (0-0.5) Absolute Lymphs (auto) 3.09 (1.0-4.6) Absolute Monos (auto) 0.90 (0.0-1.3) Lymphocytes % 22.1 L (24.0-44.0) % Monocytes % 6.4 (0.0-12.0) % Eosinophils % 0.9 (0.00-5.0) % Basophils % 0.1 (0.0-0.4) % Absolute Granulocytes 9.84 H (1.4-6.9) Basophils # 0.01 (0-0.4) Hep Bs Antigen Non Reactive (Non Reactive) ABO Group O Rh Factor POSITIVE Antibody Screen NEGATIVE (NEGATIVE) Assessment/Plan (1) Spontaneous vaginal delivery Current Visit: Yes Status: Acute Assessment & Plan: PPD #1, doing great. Likely home tomorrow. Code(s): O80 - ENCOUNTER FOR FULL-TERM UNCOMPLICATED DELIVERY (2) Anemia Current Visit: Yes Status: Acute Qualifiers: Anemia type: iron deficiency Iron deficiency anemia type: unspecified iron deficiency Qualified Code(s): D50.9 - Iron deficiency anemia, unspecified Assessment & Plan: Home on iron. Code(s): D64.9 - ANEMIA, UNSPECIFIED
[2019-11-07] MEDS: Colace 100 MG PO SCH ×2 (10:16→21:46)
[2019-11-07] MEDS: FERREX 150 PO SCH (10:16)
[2019-11-08] MEDS: TYLENOL EXTRA STRENGTH 500 MG PO PRN ×2 (02:00→07:58)
[2019-11-08] MEDS: MOTRIN 400 MG PO PRN ×2 (02:01→15:51)
[2019-11-08] MEDS: FERREX 150 PO SCH (10:22)
[2019-11-08] MEDS: Colace 100 MG PO SCH (10:22)
[2019-11-08 12:31] VITALS: O2SAT 97
--- NOTE | 2019-11-08 16:35 | PCM.DS ---
Discharge Summary Date of Admission: 11/06/19 04:20 Admitting Physician: JL MATHEWS Consults: Consults on Case 11/06/19 07:52 Notify Anesthesia Provider PRN 11/06/19 11:23 Notify Physician ROUTINE Primary Care Provider: JL MATHEWS Allergies Allergies aspartame Allergy (Verified 11/05/19 23:10) Hives latex Adverse Reaction (Verified 11/05/19 23:10) latex condoms make her have swelling and redness of vagina. Hospital Summary - Hospital Course Hospital Course: Pt was admitted as 24 yo at 39w 3d for term IOL. Pt without issues this ; came to see me in the last half of her but did get initial care in [place]. Pt had cervadil placed in the evening but baby did not tolerate it well; it was removed and she was given 1 dose terbutaline SQ due to uterine hyperstimulation. Her amniotic fluid ruptured spontaneously; ampicillin was started prior to this for + GBS status. The baby was very difficult to keep on the monitor; did appear to have some periods of minimal variability. Pt was 4cm and received her epidural; baby was able to be monitored after this. Pt delivered viable female , 8+ lb, over basically intact perineum (for full details see delivery note). Placenta delivered spontaneously, intact. EBL was 150cc. Pt has done well , with normal vaginal bleeding, up out of bed without dizziness. Bottle feeding baby. Pt's previous child was taken out of the home per DCS; a broadcast designer did an evaluation over the past 1-2 d and determined that when the child is discharged to home, she can go with mom. The baby is jaundiced; had positive SCOTTIE due to A/O blood incompatibility, likely. Twenty-four hour bilirubin was 13.3 so baby was placed on bili light and blanket. Today at 48h bilirubin was under 2 but hgb had fallen from 18 to 13. Baby will continue to stay for now for treatment. - Vitals & Intake/Output Vital Signs: Vital Signs Temperature 97.5 F 11/08/19 08:00 Pulse Rate 87 11/08/19 08:00 Respiratory Rate 18 11/08/19 08:00 Blood Pressure 118/69 11/08/19 08:00 O2 Sat by Pulse Oximetry 97 11/08/19 08:00 Intake & Output: Intake & Output 02/18/20 02/19/20 02/20/20 02/21/20 11:59 11:59 11:59 11:59 Intake Total 5858 2350 2150 Balance 5858 2350 2150 Weight 115.666 kg - Lab Result Diagrams: 11/07/19 04:15 Discharge Exam General Appearance: no apparent distress, alert, other (exam done this morning) Neurologic Exam: oriented x 3, cooperative Eye Exam: eyes nml inspection Ears, Nose, Throat Exam: moist mucous membranes Respiratory Exam: normal breath sounds, lungs clear, No crackles/rales, No rhonchi, No wheezing Cardiovascular Exam: regular rate/rhythm, normal heart sounds, No murmur Gastrointestinal/Abdomen Exam: soft, normal bowel sounds, other (fundus firm under umbilicus), No tenderness Back Exam: normal inspection, No rash Extremity Exam: normal inspection, No swelling, No tenderness Skin Exam: normal color, warm, dry, No rash Final Diagnosis/Problem List - Final Discharge Diagnosis/Problem (1) Spontaneous vaginal delivery Current Visit: Yes Status: Acute Assessment & Plan: PPD #2, she is doing great. Will be discharged home, will be staying here to care for baby. Code(s): O80 - ENCOUNTER FOR FULL-TERM UNCOMPLICATED DELIVERY (2) Anemia Current Visit: Yes Status: Acute Assessment & Plan: Hgb is 10.5 - will send home on po iron. Code(s): D64.9 - ANEMIA, UNSPECIFIED - Discharge Disposition: Home, Self-Care Condition: Good Prescriptions: New Docusate Sodium 100 mg [Colace 100 MG] 100 mg PO BID capsule Ferrous Sulfate 325 mg PO DAILY #30 tablet Ibuprofen 800 mg PO TID PRN #35 tablet PRN Reason: Pain Continue Pnv No.103/Folic/Om3s/Fish Oil [ Gummies] 1 tab PO DAILY Calcium Carbonate [Tums] 500 mg PO Q6-8HPRN PRN PRN Reason: Indigestion Follow up with: JL MATHEWS [Primary Care Provider] - 1 Week
[2019-11-08 17:44] VITALS: BP 122/77; PULSE 104
== END 2019-11-08 19:00 | disposition home or self-care (01) | DRG 807 ==
LOC: OB 04:20 → OBSVTOIN 11-06 04:20
PROVIDERS: ADMIT Family Medicine; ATTEND Family Medicine
PROC: 10E0XZZ Delivery of Products of Conception, External Approach (ICD-10-PCS; principal; 2019-11-06)
DX: O71.4 Obstetric high vaginal laceration alone (principal); Z37.0 Single live birth; Z3A.39 39 weeks gestation of pregnancy
CPT/HCPCS: 36415; 80307; 83986; 85025; 86850; 86900; 86901; 87340; 90471; 90707; G0378; J0290; J2300; J2590; J2795; A9270-GY

== ENCOUNTER 2020-11-15 15:21 | Emergency (ER) | payer OTHER ==
--- NOTE | 2020-11-15 16:03 | ERPHSYRPT ---
- History of Present Illness Source: patient Exam Limitations: no limitations Patient Subjective Stated Complaint: Vaginal bleeding Triage Nursing Assessment: Patient ambulated back to ED and transferred self to bed. Patient A+O X3. Patient's skin pink, warm and dry. Patient complains of vaginal bleeding that started this morning. Patient states she was soaking one pad an hour until 1500 and the bleeding slowed down. Patient complains of lower abdominal pain constant sharp pain 6/10. Patient states she hasn't had a period since January 2019 and has been on control for a while. Patient has taken several tests that all were negative. Patient states she is tired and feels swollen with nausea. abdomen soft and round with BS X 4. Physician History: 25 yo WF w vag bleeding x11hr. Pt has mod supra-pubic pain. Her last period was 01/2019. She denies N/V/D/melena/hematochezia/dysuria/hematuria. tests have been neg. Timing/Duration: other (11Hr) Activites at Onset: rest Quality: cramping Onset Location: suprapubic Pain Radiation: none Severity of Pain-Max: moderate Severity of Pain-Current: moderate Prior abdominal problems: none Sexual intercourse history: unprotected intercourse Modifying Factors: Improves With: nothing Associated Symptoms: No fever, No chills, No diaphoresis, No nausea, No vomiting, No dysuria, No nocturia, No polyuria, No urinary frequency, No , No loss of bladder control, No lower back pain, No lumps, No mass, No swelling, No syncope Allergies/Adverse Reactions: aspartame Allergy (Verified 11/15/20 15:35) Hives latex Adverse Reaction (Verified 11/15/20 15:35) latex condoms make her have swelling and redness of vagina. Home Medications: Norgestimate-Ethinyl Estradiol [Tri-Sprintec] 1 tab PO DAILY 11/15/20 [History] Hx Tetanus, Diphtheria Vaccination/Date Given: No Hx Influenza Vaccination/Date Given: Yes Hx Pneumococcal Vaccination/Date Given: No Travel Risk - International Travel Have you traveled outside of the country in past 3 weeks: No - Coronavirus Screening Are you exhibiting any of the following symptoms?: No Close contact with a COVID-19 positive Pt in past 14-21 Days: No - Review of Systems Constitutional: No Symptoms Eyes: No Symptoms Ears, Nose, & Throat: No Symptoms Respiratory: No Symptoms Cardiac: No Symptoms Abdominal/Gastrointestinal: No Symptoms Genitourinary Symptoms: Vaginal Bleeding, No Dysuria, No Frequency, No Hematuria, No Hesitancy, No Incontinence, No Urgency, No Urinary Retention, No Flank Pain, No Menorrhagia, No Musculoskeletal: No Symptoms Skin: No Symptoms Neurological: No Symptoms Psychological: No Symptoms Endocrine: No Symptoms Hematologic/Lymphatic: No Symptoms Immunological/Allergic: No Symptoms - Past Medical History Pertinent Past Medical History: No Neurological History: Migraines ENT History: No Pertinent History Cardiac History: No Pertinent History Respiratory History: Asthma Endocrine Medical History: No Pertinent History Musculoskeletal History: No Pertinent History GI Medical History: Hemorrhoids, Irritable Bowel Psycho-Social History: No Pertinent History Female Reproductive Disorders: No Pertinent History Other Medical History: SICKLE CELL ANEMIA TRAIT, 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 - Past Surgical History Past Surgical History: Yes Neuro Surgical History: No Pertinent History Cardiac: No Pertinent History Respiratory: No Pertinent History Gastrointestinal: No Pertinent History Genitourinary: No Pertinent History Musculoskeletal: No Pertinent History Female Surgical History: No Pertinent History Other Surgical History: TONSILLECTOMY - Social History Smoking Status: Never smoker Exposure to second hand smoke: Yes Drug Use: none Patient Lives Alone: No - Female History Hx Last Menstrual Period: January 2019 Hx Now: No (unknown) - Nursing Vital Signs Nursing Vital Signs: Initial Vital Signs Temperature 98.8 F 11/15/20 15:37 Pulse Rate 100 H 11/15/20 15:37 Respiratory Rate 18 11/15/20 15:37 Blood Pressure 123/83 11/15/20 15:37 O2 Sat by Pulse Oximetry 98 11/15/20 15:37 Pain Scale Pain Intensity 5 - Physical Exam General Appearance: no apparent distress, obese (Morbidly obese) Eye Exam: PERRL/EOMI, eyes nml inspection Ears, Nose, Throat Exam: normal ENT inspection, TMs normal, pharynx normal, moist mucous membranes Neck Exam: normal inspection, non-tender, supple, full range of motion, No meningismus, No mass, No Brudzinski, No Kernig's, No carotid bruit Respiratory Exam: normal breath sounds, lungs clear, prolonged expirations Cardiovascular Exam: regular rate/rhythm, normal heart sounds, normal peripheral pulses, No murmur Gastrointestinal/Abdomen Exam: soft, normal bowel sounds, tenderness (Mild supra -pubic TTP(technically difficult exam due to obesity)) Extremity Exam: normal inspection, normal range of motion Neurologic Exam: alert, oriented x 3, cooperative, normal mood/affect, sensation nml, No motor deficits, No sensory deficit Skin Exam: normal color, warm, dry Lymphatic Exam: No adenopathy SpO2 Interpretation: normal SpO2: 98 O2 Delivery: Room Air - Course Nursing assessment & vital signs reviewed: Yes Ordered Tests: Active Orders 24 hr Category Date Time Status CBC W DIFF Stat Lab 11/15/20 15:58 Completed HCG QUALITATIVE,SERUM Stat Lab 11/15/20 15:58 Completed UA W/RFX UR CULTURE Stat Lab 11/15/20 15:53 Completed Lab/Rad Data: Laboratory Result Diagrams 11/15/20 15:58 Laboratory Results 11/15/20 11/15/20 11/15/20 Range/Units 15:58 15:58 15:53 WBC 8.9 (4.0-10.5) K/mm3 RBC 4.44 (4.1-5.4) M/mm3 Hgb 11.6 L (12.0-16.0) gm/dl Hct 35.9 (35-47) % MCV 80.9 (78-100) fl MCH 26.1 (26-32) pg MCHC 32.3 (32-36) g/dl RDW 14.8 H (11.5-14.0) % Plt Count 397 (150-450) K/mm3 MPV 8.7 (7.5-11.0) fl Gran % 68.8 H (36.0-66.0) % Eos # (Auto) 0.20 (0-0.5) Absolute Lymphs (auto) 2.09 (1.0-4.6) Absolute Monos (auto) 0.46 (0.0-1.3) Lymphocytes % 23.6 L (24.0-44.0) % Monocytes % 5.2 (0.0-12.0) % Eosinophils % 2.3 (0.00-5.0) % Basophils % 0.1 (0.0-0.4) % Absolute Granulocytes 6.10 (1.4-6.9) Basophils # 0.01 (0-0.4) Serum , Qual NEGATIVE (Negative) Urine Color YELLOW (YELLOW) Urine Appearance SLIGHTLY CLOUDY (CLEAR) Urine pH 7.0 (5-6) Ur Specific [place] 1.012 (1.005-1.025) Urine Protein NEGATIVE (Negative) Urine Ketones NEGATIVE (NEGATIVE) Urine Blood LARGE (0-5) Spike/ul Urine Nitrite NEGATIVE (NEGATIVE) Urine Bilirubin NEGATIVE (NEGATIVE) Urine Urobilinogen NEGATIVE (0-1) mg/dL Ur Leukocyte Esterase MODERATE (NEGATIVE) Urine WBC (Auto) 11-15 (0-5) /HPF Urine RBC (Auto) 16-25 (0-2) /HPF U Epithel Cells (Auto) RARE (FEW) /HPF Urine Bacteria (Auto) NONE (NEGATIVE) /HPF Urine Culture Reflexed NO (NO) Urine Glucose NEGATIVE (NEGATIVE) mg/dL - Progress Counseled pt/family regarding: lab results, need for follow-up - Departure Departure Disposition: Home Clinical Impression: UTI (urinary tract infection), Vaginal bleeding Condition: Stable Critical Care Time: No Referrals: JL BANUELOS [Primary Care Provider] - Instructions: Urinary Tract Infections in Adults, Heavy Periods (DC) Additional Instructions: Follow up with your family MD or information technology director Return to ER as needed Prescriptions: Nitrofurantoin Monohyd/M-Cryst [Macrobid 100 mg Capsule] 100 mg PO BID #14 capsule
[2020-11-15 16:06] LABS: BASOPHIL % 0.1 % (0.0-0.4); Basophil (Absolute #) 0.01 (0-0.4); Eosinophil % 2.3 % (0.00-5.0); Hematocrit 35.9 % (35-47); Hemoglobin 11.6 gm/dl (12.0-16.0); Lymphocyte (Absolute #) 2.09 (1.0-4.6); Lymphocytes % 23.6 % (24.0-44.0); Mean Cell Volume 80.9 fl (78-100); Mean Corpuscular Hemoglobin 26.1 pg (26-32); Mean Corpuscular Hgb Concent. 32.3 g/dl (32-36); Mean Platelet Volume 8.7 fl (7.5-11.0); Monocyte (Absolute #) 0.46 (0.0-1.3); Monocytes % 5.2 % (0.0-12.0); Neutrophil % 68.8 % (36.0-66.0); Platelet Count 397 K/mm3 (150-450); Red Blood Count 4.44 M/mm3 (4.1-5.4); Red Cell Distribution Width 14.8 % (11.5-14.0); White Blood Count 8.9 K/mm3 (4.0-10.5)
[2020-11-15 16:18] LABS: Appearance SLIGHTLY CLOUDY (CLEAR); Bilirubin NEGATIVE (NEGATIVE); Blood LARGE Ery/ul (0-5); Epithelial Cells RARE /HPF (FEW); Glucose NEGATIVE (NEGATIVE); Ketones NEGATIVE (NEGATIVE); Leukocyte Esterase MODERATE (NEGATIVE); Nitrite NEGATIVE (NEGATIVE); Protein,Urine Dip NEGATIVE (Negative); Specific Gravity 1.012 (1.005-1.025); Urobilinogen NEGATIVE mg/dL (0-1)
[2020-11-15 16:24] VITALS: BP 96/67; PULSE 92
[2020-11-15 16:25] VITALS: O2SAT 98
== END 2020-11-15 16:30 | disposition home or self-care (01) ==
LOC: ED 15:21
DX: N39.0 Urinary tract infection, site not specified (principal); N93.9 Abnormal uterine and vaginal bleeding, unspecified
CPT/HCPCS: 36415; 81001; 81025; 85025; 99283

== ENCOUNTER 2021-05-10 10:20 | Emergency (ER) | payer OTHER ==
--- NOTE | 2021-05-10 11:10 | ERPHSYRPT ---
- History of Present Illness Time Seen by Provider: 05/10/21 10:27 Source: patient Exam Limitations: no limitations Patient Subjective Stated Complaint: 8 weeks , bleeding, abd and back pain Triage Nursing Assessment: pt to ED c/o vaginal bleeding onset 0900 this am. reports bright red blood when she was wiping this morning. also reports "normal feeling" with 5/10 abd/back pain. pt is 8 weeks . A3 L2 Physician History: 25 years old 6 para 2 at almost 8 weeks twin gestation presented with vaginal bleeding when she used bathroom this morning and there was dark blood on wiping for times. No bleeding afterwards. Denies any pelvic cramping. She is currently being treated for UTI. Timing/Duration: today, resolved prior to arrival, improved Activites at Onset: sleep Severity of Pain-Max: none Severity of Pain-Current: none Sexual intercourse history: non-contributory Modifying Factors: Improves With: nothing Associated Symptoms: denies symptoms Allergies/Adverse Reactions: aspartame Allergy (Verified 05/10/21 10:39) Hives latex Adverse Reaction (Verified 05/10/21 10:39) latex condoms make her have swelling and redness of vagina. Home Medications: Enoxaparin Sodium 30 mg SQ DAILY 05/10/21 [History] Pnv No.103/Folic/Om3s/Fish Oil [ Gummies] 1 each PO DAILY 05/10/21 [History] Hx Tetanus, Diphtheria Vaccination/Date Given: Yes Hx Influenza Vaccination/Date Given: Yes Hx Pneumococcal Vaccination/Date Given: No Travel Risk - International Travel Have you traveled outside of the country in past 3 weeks: No - Coronavirus Screening Are you exhibiting any of the following symptoms?: No Close contact with a COVID-19 positive Pt in past 14-21 Days: No - Vaccine Status Have you recieved a Covid-19 vaccination: No - Review of Systems Constitutional: No Symptoms Eyes: No Symptoms Ears, Nose, & Throat: No Symptoms Respiratory: No Symptoms Cardiac: No Symptoms Abdominal/Gastrointestinal: No Symptoms Genitourinary Symptoms: , Vaginal Bleeding Musculoskeletal: No Symptoms Neurological: No Symptoms Psychological: Anxiety Endocrine: No Symptoms Hematologic/Lymphatic: No Symptoms - Past Medical History Pertinent Past Medical History: Yes Neurological History: Migraines ENT History: No Pertinent History Cardiac History: No Pertinent History Respiratory History: Asthma Endocrine Medical History: No Pertinent History Musculoskeletal History: No Pertinent History GI Medical History: Hemorrhoids, Irritable Bowel Psycho-Social History: No Pertinent History Female Reproductive Disorders: No Pertinent History Other Medical History: SICKLE CELL ANEMIA TRAIT, 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 - Past Surgical History Past Surgical History: Yes Neuro Surgical History: No Pertinent History Cardiac: No Pertinent History Respiratory: No Pertinent History Gastrointestinal: No Pertinent History Genitourinary: No Pertinent History Musculoskeletal: No Pertinent History Female Surgical History: No Pertinent History Other Surgical History: TONSILLECTOMY - Social History Smoking Status: Never smoker Exposure to second hand smoke: Yes Drug Use: none Patient Lives Alone: No - Female History Hx Now: Yes Gestational Age: 8 weeks - Nursing Vital Signs Nursing Vital Signs: Initial Vital Signs Temperature 97.5 F 05/10/21 10:28 Pulse Rate 77 05/10/21 10:28 Respiratory Rate 16 05/10/21 10:28 Blood Pressure 121/94 05/10/21 10:28 O2 Sat by Pulse Oximetry 97 05/10/21 10:28 Pain Scale Pain Intensity 5 - Physical Exam General Appearance: no apparent distress, alert, anxiety Eye Exam: eyes nml inspection Ears, Nose, Throat Exam: normal ENT inspection Neck Exam: normal inspection, full range of motion Respiratory Exam: normal breath sounds, lungs clear Cardiovascular Exam: regular rate/rhythm, normal heart sounds Gastrointestinal/Abdomen Exam: soft, normal bowel sounds, No tenderness Extremity Exam: normal inspection Neurologic Exam: alert, oriented x 3, cooperative, nml station & gait Skin Exam: normal color SpO2 Interpretation: normal SpO2: 97 O2 Delivery: Room Air - Progress Progress: improved Air Movement: good Progress Note: 05/10/21 11:07 25 years old is evaluated for spotting early in . Patient had an ultrasound done few days ago at OB and does have UTI for which he is on antibiotics. I have called her primary OB Dr. Rinaldi, reviewed history/pr esentation and exam findings, do not think patient needs any work-up in the ER and is scheduled to have outpatient appointment in 3 days with him and especially the fact she has spotting not heavy bleeding. He has spoken with patient as well and will continue with the same plan. Discussed with patient again and she agrees with it. Blood Culture(s) Obtained: No Antibiotics given: No Discussed with DrJohnna: Tin Counseled pt/family regarding: diagnosis, need for follow-up - Departure Departure Disposition: Home Clinical Impression: Spotting in early Condition: Stable Critical Care Time: No Referrals: JL BANUELOS [Primary Care Provider] - Follow Up with PCP/3 days JENNIFER RINALDI DO [ACTIVE STAFF] - (In 3 days as scheduled) Instructions: Bleeding With (DC) Additional Instructions: Keep yourself well-hydrated. Pelvic rest. Take Tylenol as needed. Continue with antibiotics for UTI. Keep appointment with OB for reevaluation in 3 days. Return to ER for worsening bleeding or having any cramping/back pain etc.
[2021-05-10 11:19] VITALS: BP 125/58; PULSE 60; O2SAT 98
== END 2021-05-10 11:23 | disposition home or self-care (01) ==
LOC: ED 10:20
DX: O26.851 Spotting complicating pregnancy, first trimester (principal); O23.41 Unspecified infection of urinary tract in pregnancy, first trimester; Z3A.08 8 weeks gestation of pregnancy
CPT/HCPCS: 99283

== ENCOUNTER 2021-06-19 10:59 | Emergency (ER) | payer OTHER ==
[2021-06-19 11:16] VITALS: BP 130/87
[2021-06-19] MEDS ORDERED: Sodium Chloride 0.9% 1000 ML 1,000 ML IV STA (11:29)
[2021-06-19] MEDS ORDERED: Zofran 4 MG/2 ML VIAL IV ONE (11:29)
[2021-06-19] MEDS ORDERED: TYLENOL 325 MG PO ONE (11:29)
[2021-06-19] MEDS ORDERED: Zofran 4 MG/2 ML VIAL ONE (11:36)
[2021-06-19] MEDS ORDERED: TYLENOL 325 MG ONE (11:36)
[2021-06-19] MEDS ORDERED: Sodium Chloride 0.9% 1000 ML 1,000 ML ONE (11:36)
--- NOTE | 2021-06-19 11:41 | ERPHSYRPT ---
- History of Present Illness Time Seen by Provider: 06/19/21 11:05 Source: patient Exam Limitations: no limitations Patient Subjective Stated Complaint: Abdominal cramping- 14 weeks Triage Nursing Assessment: Patient ambulated back to ED and transferred self to bed. Patient A+O X3. Patient's skin pink, warm and dry. Patient states she is 14 weeks with twins. Patient states she started cramping yesterday that has gotten worse today. Patient called Dr. Rinaldi and was told to come to ED for eval. Patient denies bleeding [facility] Physician History: 25 years old 6 para 2 at 14 weeks twin gestation presented in the ER with cramping off and on since yesterday with progressive worsening. Reports initially started on periumbilical area but now and upper and lower abdomen, low back with associated nausea and denies any vaginal bleeding or discharge or leakage of fluid. Denies any urinary symptoms. No fever or chills reported. Timing/Duration: yesterday, intermittent, gradual onset, worse Activites at Onset: rest Quality: cramping Onset Location: periumbilical, suprapubic Severity of Pain-Max: moderate Severity of Pain-Current: mild Sexual intercourse history: non-contributory Modifying Factors: Improves With: nothing Associated Symptoms: abdominal pain, nausea, lower back pain, No vaginal discharge, No vaginal fluid leakage Allergies/Adverse Reactions: aspartame Allergy (Verified 06/19/21 11:07) Hives latex Adverse Reaction (Verified 06/19/21 11:07) latex condoms make her have swelling and redness of vagina. Home Medications: Enoxaparin Sodium 30 mg SQ DAILY 05/10/21 [History] Pnv No.103/Folic/Om3s/Fish Oil [ Gummies] 1 each PO DAILY 05/10/21 [History] Hx Tetanus, Diphtheria Vaccination/Date Given: Yes Hx Influenza Vaccination/Date Given: Yes Hx Pneumococcal Vaccination/Date Given: No Travel Risk - International Travel Have you traveled outside of the country in past 3 weeks: No - Coronavirus Screening Are you exhibiting any of the following symptoms?: No Close contact with a COVID-19 positive Pt in past 14-21 Days: No - Vaccine Status Have you recieved a Covid-19 vaccination: No - Review of Systems Constitutional: No Symptoms Eyes: No Symptoms Ears, Nose, & Throat: No Symptoms Respiratory: No Symptoms Cardiac: No Symptoms Abdominal/Gastrointestinal: Abdominal Pain, Nausea Genitourinary Symptoms: Musculoskeletal: No Symptoms Skin: No Symptoms Neurological: No Symptoms Psychological: No Symptoms Endocrine: No Symptoms Hematologic/Lymphatic: No Symptoms Immunological/Allergic: No Symptoms - Past Medical History Pertinent Past Medical History: Yes Neurological History: Migraines ENT History: No Pertinent History Cardiac History: No Pertinent History Respiratory History: Asthma Endocrine Medical History: No Pertinent History Musculoskeletal History: No Pertinent History GI Medical History: Hemorrhoids, Irritable Bowel Psycho-Social History: No Pertinent History Female Reproductive Disorders: No Pertinent History Other Medical History: SICKLE CELL ANEMIA TRAIT, 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 - Past Surgical History Past Surgical History: Yes Neuro Surgical History: No Pertinent History Cardiac: No Pertinent History Respiratory: No Pertinent History Gastrointestinal: No Pertinent History Genitourinary: No Pertinent History Musculoskeletal: No Pertinent History Female Surgical History: No Pertinent History Other Surgical History: TONSILLECTOMY - Social History Smoking Status: Never smoker Exposure to second hand smoke: Yes Drug Use: none Patient Lives Alone: No - Female History Hx Last Menstrual Period: January 2021 Hx Now: Yes Expected Date of Delivery: 12/16/21 - Nursing Vital Signs Nursing Vital Signs: Initial Vital Signs Temperature 97.2 F 06/19/21 11:10 Pulse Rate 92 H 06/19/21 11:10 Respiratory Rate 18 06/19/21 11:10 Blood Pressure 130/87 06/19/21 11:10 O2 Sat by Pulse Oximetry 97 06/19/21 11:10 Pain Scale Pain Intensity 6 - Physical Exam General Appearance: no apparent distress, alert Eye Exam: PERRL/EOMI, eyes nml inspection Ears, Nose, Throat Exam: normal ENT inspection, pharynx normal Neck Exam: normal inspection, non-tender, supple, full range of motion Respiratory Exam: normal breath sounds, lungs clear Cardiovascular Exam: regular rate/rhythm, normal heart sounds Gastrointestinal/Abdomen Exam: soft, normal bowel sounds, tenderness (Minimal tenderness in the suprapubic and periumbilical area without guarding or rebound tenderness.) Back Exam: normal inspection, normal range of motion, No CVA tenderness Extremity Exam: normal inspection Neurologic Exam: alert, oriented x 3, cooperative Skin Exam: normal color SpO2 Interpretation: normal SpO2: 97 O2 Delivery: Room Air Ordered Tests: Active Orders 24 hr Category Date Time Status IV Insertion STAT Care 06/19/21 11:29 Active OB >14 WKS 1st GESTATION [US] Stat Exams 06/19/21 11:35 Completed OB >14 WKS ADDL GESTATION [US] Stat Exams 06/19/21 11:42 Completed AMYLASE Stat Lab 06/19/21 11:45 Completed CBC W DIFF Stat Lab 06/19/21 11:45 Completed CMP Stat Lab 06/19/21 11:45 Completed CULTURE,URINE Stat Lab 06/19/21 11:37 Received LIPASE Stat Lab 06/19/21 11:45 Completed UA W/RFX UR CULTURE Stat Lab 06/19/21 11:37 Completed Medication Summary Generic Name Dose Route Start Last Admin Trade Name Freq PRN Reason Stop Dose Admin Ceftriaxone Sodium/Dextrose 2 g in 50 mls @ 100 mls/hr 06/19/21 12:40 06/19/21 12:46 Rocephin 2 Gm-D5w 50ml Bag IV 06/19/21 13:09 100 ml/hr STAT STA 100 mls/hr Administration Discontinued Medications Generic Name Dose Route Start Last Admin Trade Name Freq PRN Reason Stop Dose Admin Acetaminophen 975 mg 06/19/21 11:29 06/19/21 11:37 Tylenol 325 Mg PO 06/19/21 11:30 975 mg STAT ONE Administration Acetaminophen Confirm 06/19/21 11:36 Tylenol 325 Mg Administered 06/19/21 11:37 Dose 975 mg .ROUTE .STK-MED ONE Sodium Chloride 1,000 mls @ 999 mls/hr 06/19/21 11:29 06/19/21 12:39 Sodium Chloride 0.9% 1000 Ml IV 06/19/21 12:29 Infused .Q1H1M STA Infusion Sodium Chloride Confirm 06/19/21 11:36 Sodium Chloride 0.9% 1000 Ml Administered 06/19/21 11:37 Dose 1,000 mls @ ud .ROUTE .STK-MED ONE Ceftriaxone Sodium/Dextrose Confirm 06/19/21 12:44 Rocephin 2 Gm-D5w 50ml Bag Administered 06/19/21 12:45 Dose 2 g in 50 mls @ ud IV .STK-MED ONE Ondansetron HCl 4 mg 06/19/21 11:29 06/19/21 11:37 Zofran 4 Mg/2 Ml Vial IV 06/19/21 11:30 4 mg STAT ONE Administration Ondansetron HCl Confirm 06/19/21 11:36 Zofran 4 Mg/2 Ml Vial Administered 06/19/21 11:37 Dose 4 mg .ROUTE .STK-MED ONE Lab/Rad Data: Laboratory Result Diagrams 06/19/21 11:45 06/19/21 11:45 Laboratory Results 06/19/21 06/19/21 06/19/21 Range/Units 11:45 11:45 11:37 WBC 9.0 (4.0-10.5) K/mm3 RBC 4.01 L (4.1-5.4) M/mm3 Hgb 11.6 L (12.0-16.0) gm/dl Hct 33.8 L (35-47) % MCV 84.3 (78-100) fl MCH 28.9 (26-32) pg MCHC 34.3 (32-36) g/dl RDW 14.0 (11.5-14.0) % Plt Count 338 (150-450) K/mm3 MPV 8.8 (7.5-11.0) fl Gran % 73.3 H (36.0-66.0) % Eos # (Auto) 0.27 (0-0.5) Absolute Lymphs (auto) 1.60 (1.0-4.6) Absolute Monos (auto) 0.52 (0.0-1.3) Lymphocytes % 17.7 L (24.0-44.0) % Monocytes % 5.8 (0.0-12.0) % Eosinophils % 3.0 (0.00-5.0) % Basophils % 0.2 (0.0-0.4) % Absolute Granulocytes 6.61 (1.4-6.9) Basophils # 0.02 (0-0.4) Sodium 134 L (137-145) mmol/L Potassium 3.8 (3.5-5.1) mmol/L Chloride 103 (98-107) mmol/L Carbon Dioxide 22 (22-30) mmol/L Anion Gap 12.0 (5-15) MEQ/L BUN 5 L (7-17) mg/dL Creatinine 0.49 L (0.52-1.04) mg/dL Estimated GFR > 60.0 ML/MIN Glucose 88 (74-106) mg/dL Calcium 9.3 (8.4-10.2) mg/dL Total Bilirubin 0.70 (0.2-1.3) mg/dL AST 34 (14-36) U/L ALT 46 H (0-35) U/L Alkaline Phosphatase 84 (38-126) U/L Serum Total Protein 7.3 (6.3-8.2) g/dL Albumin 3.8 (3.5-5.0) g/dL Amylase 47 (30-110) U/L Lipase 24 (23-300) U/L Urine Color YELLOW (YELLOW) Urine Appearance SLIGHTLY CLOUDY (CLEAR) Urine pH 6.0 (5-6) Ur Specific [place] 1.015 (1.005-1.025) Urine Protein NEGATIVE (Negative) Urine Ketones NEGATIVE (NEGATIVE) Urine Blood NEGATIVE (0-5) Spike/ul Urine Nitrite NEGATIVE (NEGATIVE) Urine Bilirubin NEGATIVE (NEGATIVE) Urine Urobilinogen 2 (0-1) mg/dL Ur Leukocyte Esterase LARGE (NEGATIVE) Urine WBC (Auto) 11-15 (0-5) /HPF Urine RBC (Auto) 0-2 (0-2) /HPF U Epithel Cells (Auto) RARE (FEW) /HPF Urine Bacteria (Auto) RARE (NEGATIVE) /HPF Urine Mucus (Auto) SLIGHT (NEGATIVE) /HPF Urine Culture Reflexed YES (NO) Urine Glucose NEGATIVE (NEGATIVE) mg/dL - Progress Progress: improved Air Movement: good Progress Note: 06/19/21 13:05 25 years old at 14 weeks twin gestation is evaluated for cramping. She is given fluid bolus and Tylenol, on reevaluation her cramping is improved. Baseline lab work grossly unremarkable except for UTI and given a dose of Rocephin in here and will continue with Keflex to go home. I have obtained ultrasound which showed good heart tones in both fetuses and cervical length of 3.9. I have discussed with Dr. Rinaldi primary OB for the patient, reviewed history, work-up and agreed with discharge and outpatient follow-up. Discussed signs symptoms of worsening needing return to ER which patient seems understanding. Stable for discharge Blood Culture(s) Obtained: No Antibiotics given: Yes Discussed with : Tin Will see patient in: office Counseled pt/family regarding: lab results, diagnosis, need for follow-up, rad results - Departure Departure Disposition: Home Clinical Impression: Abdominal cramping affecting , antepartum UTI in Qualifiers: Trimester: second trimester Qualified Code(s): O23.42 - Unspecified infection of urinary tract in , second trimester Condition: Stable Critical Care Time: No Referrals: JENNIFER RINALDI DO [ACTIVE STAFF] - (Call in 1 to 2 days for reevaluation early next week.) Instructions: Stomach Pain in Early , Urinary Tract Infections in Additional Instructions: Drink plenty of fluids. Take Tylenol as needed. Follow-up with your primary OB for reevaluation next week. Return to ER for increasing cramping, vaginal bleeding discharge etc. Prescriptions: Cephalexin Mh 500 mg [Keflex 500 mg] 500 mg PO TID #21 cap
[2021-06-19 11:51] LABS: Absolute Neutrophil Ct (ANC) 6.61 (1.4-6.9); BASOPHIL % 0.2 % (0.0-0.4); Basophil (Absolute #) 0.02 (0-0.4); Eosinophil (Absolute #) 0.27 (0-0.5); Hematocrit 33.8 % (35-47); Hemoglobin 11.6 gm/dl (12.0-16.0); Lymphocytes % 17.7 % (24.0-44.0); Mean Cell Volume 84.3 fl (78-100); Mean Corpuscular Hemoglobin 28.9 pg (26-32); Mean Corpuscular Hgb Concent. 34.3 g/dl (32-36); Mean Platelet Volume 8.8 fl (7.5-11.0); Monocyte (Absolute #) 0.52 (0.0-1.3); Monocytes % 5.8 % (0.0-12.0); Neutrophil % 73.3 % (36.0-66.0); Platelet Count 338 K/mm3 (150-450); Red Blood Count 4.01 M/mm3 (4.1-5.4)
[2021-06-19 12:08] LABS: Appearance SLIGHTLY CLOUDY (CLEAR); Bacteria RARE /HPF (NEGATIVE); Bilirubin NEGATIVE (NEGATIVE); Blood NEGATIVE Ery/ul (0-5); Epithelial Cells RARE /HPF (FEW); Glucose NEGATIVE (NEGATIVE); Ketones NEGATIVE (NEGATIVE); Leukocyte Esterase LARGE (NEGATIVE); Mucus SLIGHT /HPF (NEGATIVE); Nitrite NEGATIVE (NEGATIVE); Protein,Urine Dip NEGATIVE (Negative); RBC 0-2 /HPF (0-2); Specific Gravity 1.015 (1.005-1.025); Urobilinogen 2 mg/dL (0-1)
[2021-06-19 12:10] VITALS: PULSE 80
[2021-06-19 12:16] LABS: ALBUMIN 3.8 g/dL (3.5-5.0); ALKALINE PHOSPHATASE 84 U/L (38-126); AMYLASE 47 U/L (30-110); BLOOD UREA NITROGEN 5 mg/dL (7-17); CHLORIDE 103 mmol/L (98-107); Calcium 9.3 mg/dL (8.4-10.2); Carbon Dioxide 22 mmol/L (22-30); Creatinine 1 0.49 mg/dL (0.52-1.04); EST GLOMERULAR FILTRATION RATE > 60.0 ML/MIN; Glucose 88 mg/dL (74-106); LIPASE 24 U/L (23-300); Potassium 3.8 mmol/L (3.5-5.1); SGOT/AST 34 U/L (14-36); SGPT/ALT 46 U/L (0-35); SODIUM 134 mmol/L (137-145); Total Protein 7.3 g/dL (6.3-8.2)
--- NOTE | 2021-06-19 12:36 | XRAY ---
Indication: Cramping. Twin gestation. Limited twin OB ultrasound performed. Comparison: May 13, 2021. Twin B is maternal right with heart rate is 154 BPM. Posterior placenta without abruption/previa. No measurements obtained. Cervical length is 3.9 cm.
--- NOTE | 2021-06-19 12:36 | XRAY ---
Indication: Cramping. Twin gestation. Limited twin OB ultrasound performed. Comparison: May 13, 2021. Twin A is maternal left with heart rate is 154 BPM. Anterior placenta without abruption/previa. No measurements obtained. Cervical length is 3.9 cm.
[2021-06-19] MEDS ORDERED: ROCEPHIN 2 Gm-D5w 50ML BAG** 2 G/50 ML IVPB IV STA (12:40)
[2021-06-19] MEDS ORDERED: ROCEPHIN 2 Gm-D5w 50ML BAG** 2 G/50 ML IVPB IV ONE (12:44)
[2021-06-19 13:10] VITALS: O2SAT 97
== END 2021-06-19 13:18 | disposition home or self-care (01) ==
LOC: ED 10:59
DX: O26.892 Other specified pregnancy related conditions, second trimester (principal); Z3A.14 14 weeks gestation of pregnancy; R10.9 Unspecified abdominal pain
CPT/HCPCS: 36000; 36415; 76805; 76810; 80053; 81001; 82150; 83690; 85025; 87086; 96360; 96365; 96374; 99284; J0696; J2405; A9270-GY

== ENCOUNTER 2021-07-08 15:20 | Emergency (ER) | payer OTHER ==
[2021-07-08 15:35] VITALS: O2SAT 98
--- NOTE | 2021-07-08 16:25 | XRAY ---
Indication: Lower abdomen swelling. Routine daily subcutaneous Lovenox injections. Two-dimensional targeted soft tissue ultrasound left abdomen demonstrates multiple subcutaneous hematomas, largest 2.6 x 1.4 x 1.4 cm.
--- NOTE | 2021-07-08 16:32 | ERPHSYRPT ---
- History of Present Illness Time Seen by Provider: 07/08/21 15:35 Source: patient Exam Limitations: no limitations Patient Subjective Stated Complaint: PT states "DR Rinaldi sent me here because my lower abdomen is swollen and he is afraid it might be a blood clot. I take lovenox injections." Triage Nursing Assessment: PT presented alert and oriented X 3, skin wpd pt ambulates with an upright steady gait, able to speak in clear full sentences pt in no apparent respiratory distress. Physician History: Patient is a 26-year-old female presents to our ED as a referral from her [employer] physician for evaluation of a left lower abdominal wall swelling. Patient is currently injecting herself with Lovenox with her [employer]BILE [employer]CHANIC recommendation. Patient had a follow-up appointment with her [employer] physician. The area was evaluated and patient was sent to our ED to make sure she does not have a blood clot. Patient otherwise asymptomatic. She is currently 17 weeks . Patient has no complaints regarding her her pelvis or her vaginal area. No vaginal discharge. No trauma. No fevers. Pain described as a mild ache. Patient declined pain medication. Patient voices no other complaints or concerns at this time. Allergies/Adverse Reactions: aspartame Allergy (Verified 06/19/21 11:07) Hives latex Adverse Reaction (Verified 06/19/21 11:07) latex condoms make her have swelling and redness of vagina. Home Medications: Enoxaparin Sodium 30 mg SQ DAILY 05/10/21 [History] Pnv No.103/Folic/Om3s/Fish Oil [ Gummies] 1 each PO DAILY 05/10/21 [History] Hx Tetanus, Diphtheria Vaccination/Date Given: Yes Hx Influenza Vaccination/Date Given: No Hx Pneumococcal Vaccination/Date Given: No Immunizations Up to Date: Yes Travel Risk - International Travel Have you traveled outside of the country in past 3 weeks: No - Coronavirus Screening Are you exhibiting any of the following symptoms?: No Close contact with a COVID-19 positive Pt in past 14-21 Days: No - Vaccine Status Have you recieved a Covid-19 vaccination: No - Review of Systems Constitutional: No Symptoms, No Fever, No Chills Eyes: No Symptoms Ears, Nose, & Throat: No Symptoms Respiratory: No Symptoms, No Cough, No Dyspnea Cardiac: No Symptoms, No Chest Pain, No Edema, No Syncope Abdominal/Gastrointestinal: No Symptoms, No Abdominal Pain, No Nausea, No Vomiting, No Diarrhea Genitourinary Symptoms: No Symptoms, No Dysuria Musculoskeletal: No Symptoms, No Back Pain, No Neck Pain Skin: No Symptoms, No Rash Neurological: No Symptoms, No Dizziness, No Focal Weakness, No Sensory Changes Psychological: No Symptoms Endocrine: No Symptoms Hematologic/Lymphatic: No Symptoms Immunological/Allergic: No Symptoms All Other Systems: Reviewed and Negative - Past Medical History Pertinent Past Medical History: Yes Neurological History: Migraines ENT History: No Pertinent History Cardiac History: No Pertinent History Respiratory History: Asthma Endocrine Medical History: No Pertinent History Musculoskeletal History: No Pertinent History GI Medical History: Hemorrhoids, Irritable Bowel Psycho-Social History: No Pertinent History Female Reproductive Disorders: No Pertinent History Other Medical History: SICKLE CELL ANEMIA TRAIT, 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 - Past Surgical History Past Surgical History: Yes Neuro Surgical History: No Pertinent History Cardiac: No Pertinent History Respiratory: No Pertinent History Gastrointestinal: No Pertinent History Genitourinary: No Pertinent History Musculoskeletal: No Pertinent History Female Surgical History: No Pertinent History Other Surgical History: TONSILLECTOMY - Social History Smoking Status: Never smoker Exposure to second hand smoke: Yes Drug Use: none Patient Lives Alone: No - Female History Hx Last Menstrual Period: 01/26/2021 Hx Now: Yes Expected Date of Delivery: 12/16/21 - Nursing Vital Signs Nursing Vital Signs: Initial Vital Signs Temperature 97.8 F 07/08/21 15:28 Pulse Rate 102 H 07/08/21 15:28 Respiratory Rate 22 07/08/21 15:28 Blood Pressure 118/77 07/08/21 15:28 O2 Sat by Pulse Oximetry 98 07/08/21 15:28 Pain Scale Pain Intensity 0 - Physical Exam General Appearance: no apparent distress, alert Eye Exam: PERRL/EOMI, eyes nml inspection Ears, Nose, Throat Exam: normal ENT inspection, TMs normal, pharynx normal, moist mucous membranes Neck Exam: normal inspection, non-tender, supple, full range of motion Respiratory Exam: normal breath sounds, lungs clear, airway intact, No respiratory distress Cardiovascular Exam: regular rate/rhythm, normal heart sounds, normal peripheral pulses Gastrointestinal/Abdomen Exam: soft, normal bowel sounds, other (Left lower abd omen shows a superficial hematoma measuring approximately 4 x 3 cm.), No tenderness, No mass Back Exam: normal inspection, normal range of motion, No CVA tenderness, No vertebral tenderness Extremity Exam: normal inspection, normal range of motion, pelvis stable Neurologic Exam: alert, oriented x 3, cooperative, normal mood/affect, nml cerebellar function, nml station & gait, sensation nml, No motor deficits Skin Exam: normal color, warm, dry, No rash Lymphatic Exam: No adenopathy SpO2 Interpretation: normal SpO2: 98 O2 Delivery: Room Air - Course Nursing assessment & vital signs reviewed: Yes - Radiology Ultrasound Exam Abdomen Ultrasound: discussed w/radiologist (Per my discussion with furniture upholstery mechanic patient appears to have a superficial hematoma.) Ordered Tests: Active Orders 24 hr Category Date Time Status ABDOMINAL-LIMITED [US] Stat Exams 07/08/21 15:43 Completed - Progress Progress: unchanged Progress Note: Patient sent to our ED by her OB physician to assess for possible blood clot to left lower abdomen. I discussed the case with the furniture upholstery mechanic and it appears that patient had a superficial hematoma. Treatment will be avoid injecting Lovenox in this area. Warm compress. Patient follow-up with [employer] or primary care doctor within 48 hours for reevaluation. Patient claimed pain medication. Patient has no complaints regarding her . No pelvic pain. No vaginal discharge. No cramping. She voices no other complaints or concerns at this time. Patient requesting discharge. Portions of this note were created with voice recognition technology. There may be grammatical, spelling, punctuation or sound alike errors 07/08/21 16:31 Discussed with DrJohnna: Tin Counseled pt/family regarding: diagnosis, need for follow-up, rad results - Departure Departure Disposition: Home Clinical Impression: Hematoma Condition: Stable Critical Care Time: No Referrals: JL DIEHL [Primary Care Provider] - Additional Instructions: Discharge/Care Plan MINERVA MAHER was seen on 07/08/21 in the Emergency Room. The patient was counseled regarding Diagnosis,Lab results, Imaging studies, need for follow up and when to return to the Emergency Room. Prescriptions given: Discharge Note I have spoken with the patient and/or caregivers. I have explained the patient's condition, diagnosis and treatment plan based on the information available to me at this time. I have answered the patient's and/or caregiver's questions and addressed any concerns. The patient and/or caregivers have as good understanding of the patient's diagnosis, condition and treatment plan as can be expected at this point. The vital signs have been stable. The patient's condition is stable and appropriate for discharge from the emergency department. The patient will pursue further outpatient evaluation with the primary care physician or other designated or consulting physician as outlined in the discharge instructions. The patient and/or caregivers are agreeable to this plan of care and follow-up instructions have been explained in detail. The patient and/or caregivers have received these instruction. The patient/and or caregivers are aware that any significant change in condition or worsening of symptoms sh ould prompt an immediate return to this or the closest emergency department or call 911.
[2021-07-08 16:36] VITALS: BP 114/70; PULSE 96
== END 2021-07-08 16:49 | disposition home or self-care (01) ==
LOC: ED 15:20
DX: S36.32XA Contusion of stomach, initial encounter (principal); Z3A.17 17 weeks gestation of pregnancy
CPT/HCPCS: 76705; 99283

== ENCOUNTER 2021-11-11 13:11 | Observation (INO) | payer OTHER ==
[2021-11-11 15:11] VITALS: BP 106/66; PULSE 115; O2SAT 96
--- NOTE | 2021-11-11 17:13 | XRAY ---
Indication: position. Twin gestation. Limited OB ultrasound performed to evaluate position. Twin A and twin B are both in cephalic presentation. Twin A heart rate is 138 bpm. Twin B heart rate is 131 bpm.
== END 2021-11-11 15:50 | disposition home or self-care (01) ==
LOC: WHC 13:11 → MED SURG 14:06
PROVIDERS: ADMIT Obstetrics & Gynecology; ATTEND Obstetrics & Gynecology
DX: O30.003 Twin pregnancy, unspecified number of placenta and unspecified number of amniotic sacs, third trimester (principal); Z3A.35 35 weeks gestation of pregnancy
CPT/HCPCS: 59025; 59426; 76815; 81002; 87081; G0378

== ENCOUNTER 2021-11-19 13:28 | Inpatient (IN) | payer OTHER ==
[2021-11-19] MEDS ORDERED: XYLOCAINE 1% HCL 20 ML MDV IJ PRN (16:03)
[2021-11-19] MEDS ORDERED: Zofran 4 MG/2 ML VIAL IV PRN (16:03)
--- NOTE | 2021-11-19 16:24 | XRAY ---
Indication: Twin . Ultrasound biophysical profile study twin A demonstrates cephalic presentation. heart rate 126 BPM. Four-quadrant LOUIE 7.1 cm. 2 points given for breathing, movements, tone, and qualitative amniotic fluid volume. Impression: Total biophysical profile score of twin A is 8 out of 8.
--- NOTE | 2021-11-19 16:24 | XRAY ---
Indication: Twin . Ultrasound biophysical profile study twin B demonstrates cephalic presentation. heart rate 134 BPM. Four-quadrant LOUIE 11.6 cm. 2 points given for breathing, movements, tone, and qualitative amniotic fluid volume. Impression: Total biophysical profile score of twin B is 8 out of 8.
[2021-11-19] MEDS ORDERED: PITOCIN 30 UNITS/ LR 500 ML 30 UNITS/500 ML PLAST..BAG IV SCH (16:30)
[2021-11-19] MEDS ORDERED: Lactated Ringers 1,000 ML IV SCH (16:30)
[2021-11-19 17:06] LABS: Absolute Neutrophil Ct (ANC) 6.65 (1.4-6.9); Basophil (Absolute #) 0.01 (0-0.4); Eosinophil % 1.1 % (0.00-5.0); Hematocrit 30.3 % (35-47); Hemoglobin 10.2 gm/dl (12.0-16.0); Lymphocyte (Absolute #) 1.53 (1.0-4.6); Lymphocytes % 17.2 % (24.0-44.0); Mean Cell Volume 82.8 fl (78-100); Mean Corpuscular Hemoglobin 27.9 pg (26-32); Mean Corpuscular Hgb Concent. 33.7 g/dl (32-36); Mean Platelet Volume 9.4 fl (7.5-11.0); Monocytes % 6.7 % (0.0-12.0); Neutrophil % 74.9 % (36.0-66.0); Platelet Count 310 K/mm3 (150-450); Red Blood Count 3.66 M/mm3 (4.1-5.4); Red Cell Distribution Width 15.1 % (11.5-14.0); White Blood Count 8.9 K/mm3 (4.0-10.5)
[2021-11-19 17:19] LABS: Amphetamine,Urine NEGATIVE (NEGATIVE); Barbiturate,Urine NEGATIVE (NEGATIVE); Benzodiazepine,Urine NEGATIVE (NEGATIVE); Cocaine,Urine NEGATIVE (NEGATIVE); Methadone,Urine NEGATIVE (NEGATIVE); Opiate,Urine NEGATIVE (NEGATIVE); PCP,Urine NEGATIVE (NEGATIVE); THC,Urine NEGATIVE (NEGATIVE)
[2021-11-19 17:57] LABS: ABO TYPING O; Antibody Screen NEGATIVE (NEGATIVE); RH TYPING POSITIVE
[2021-11-19 23:25] LABS: INR 1.11 (0.8-3.0); PROTIME 13.1 SECONDS (9.4-12.5)
[2021-11-19] MEDS: TYLENOL EXTRA STRENGTH 500 MG PO PRN (23:34)
[2021-11-20] MEDS ORDERED: OMNIPEN 2 GM ONE (00:16)
[2021-11-20] MEDS ORDERED: Sodium Chloride 100ML MINI-BAG PLUS 100 ML IV ONE ×2 (00:18→04:21)
[2021-11-20] MEDS ORDERED: OMNIPEN 2 GM*** 2 G in Sodium Chloride 100ML MINI-BAG PLUS 100 ML IV ONE (01:00)
[2021-11-20] MEDS: Lactated Ringers 1,000 ML IV SCH (01:12)
[2021-11-20] MEDS ORDERED: OMNIPEN 1 GM ONE (04:21)
[2021-11-20] MEDS ORDERED: OMNIPEN 1 GM*** 1 GM in Sodium Chloride 100ML MINI-BAG PLUS 100 ML IV SCH (05:00)
[2021-11-20] MEDS ORDERED: Lactated Ringers 1,000 ML IV ONE (05:30)
[2021-11-20] MEDS ORDERED: FENTANYL 2 MCG-BUPIV 0.125%-NS 250 ML Epidur 250 ML EPIDURAL SCH (06:00)
[2021-11-20] MEDS ORDERED: Ephedrine Sulfate 50 MG/ML IV PRN (06:00)
[2021-11-20] MEDS ORDERED: BRETHINE 1 MG/ML SQ PRN (07:00)
--- NOTE | 2021-11-20 07:28 | PCM.HP ---
History of Present Illness - Chief Complaint Chief Complaint: labor History of Present Illness: is a 26 year old female. 26 yo iup 36 2/7 twin gestation currently with advanced cervical dilitation states having irregular contx noted to being 5-6/80/-2/vtx/intact in office. denies vaginal bleeding and states good movement. Medications & Allergies Home Medications: Home Medication List Pnv No.103/Folic/Om3s/Fish Oil [ Gummies] 1 each PO DAILY 05/10/21 [History Confirmed 11/19/21] Nifedipine 10 mg [Procardia 10 mg] 10 mg PO TID 11/11/21 [History Confirmed 11/19/21] Omeprazole Magnesium [Prilosec Otc] 20 mg PO DAILY 11/19/21 [History Confirmed 11/19/21] Allergies/Adverse Reactions: Allergies Allergy/AdvReac Type Severity Reaction Status Date / Time aspartame Allergy Hives Verified 11/19/21 14:57 latex AdvReac Verified 11/19/21 14:57 - Past Medical History Past Medical History: Yes Neurological History: Migraines ENT History: No Pertinent History Cardiac History: No Pertinent History Respiratory History: Asthma Endocrine Medical History: No Pertinent History Musculoskelatal History: No Pertinent History GI Medical History: Hemorrhoids, Irritable Bowel Pyscho-Social History: No Pertinent History Reproductive Disorders: No Pertinent History Comment: SICKLE CELL ANEMIA TRAIT, 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, FACTOR 5 - Female History Are you now?: Yes Expected Date of Delivery: 12/16/21 - Past Surgical History Past Surgical History: Yes Neuro Surgical History: No Pertinent History Cardiac History: No Pertinent History Respiratory Surgery: No Pertinent History GI Surgical History: No Pertinent History Genitourinary Surgical Hx: No Pertinent History Musculskeletal Surgical Hx: No Pertinent History Female Surgical History: No Pertinent History Other Surgical History: TONSILLECTOMY - Social History Smoking Status: Never smoker Exposure to second hand smoke: Yes Alcohol: None Drug Use: none - Physical Exam Vital Signs: Vital Signs - 24 hr Temp Pulse Resp BP BP Pulse Ox 11/20/21 05:10 98.7 F 102 H 20 112/71 97 11/20/21 01:00 98.4 F 101 H 20 108/68 98 11/19/21 17:33 97.6 F 115 H 20 124/68 97 11/19/21 14:42 97.6 F 115 H 97 11/19/21 14:30 97.6 F 115 H 97 General Appearance: no apparent distress Neurologic Exam: alert Gastrointestinal/Abdomen Exam: soft Pelvic Exam: other (5-6/80/-2/vtx/intact) Rectal Exam: deferred Extremity Exam: normal inspection Results - Labs Lab/Micro Results: Lab Results-Last 24 Hours 11/19/21 11/19/21 11/19/21 Range/Units 16:15 16:37 16:37 WBC 8.9 (4.0-10.5) K/mm3 RBC 3.66 L (4.1-5.4) M/mm3 Hgb 10.2 L (12.0-16.0) gm/dl Hct 30.3 L (35-47) % MCV 82.8 (78-100) fl MCH 27.9 (26-32) pg MCHC 33.7 (32-36) g/dl RDW 15.1 H (11.5-14.0) % Plt Count 310 (150-450) K/mm3 MPV 9.4 (7.5-11.0) fl Gran % 74.9 H (36.0-66.0) % Eos # (Auto) 0.10 (0-0.5) Absolute Lymphs (auto) 1.53 (1.0-4.6) Absolute Monos (auto) 0.60 (0.0-1.3) Lymphocytes % 17.2 L (24.0-44.0) % Monocytes % 6.7 (0.0-12.0) % Eosinophils % 1.1 (0.00-5.0) % Basophils % 0.1 (0.0-0.4) % Absolute Granulocytes 6.65 (1.4-6.9) Basophils # 0.01 (0-0.4) PT (9.4-12.5) SECONDS INR (0.8-3.0) APTT (25.1-36.5) SECONDS Urine Opiates Level NEGATIVE (NEGATIVE) Ur Methadone NEGATIVE (NEGATIVE) Urine Barbiturates NEGATIVE (NEGATIVE) Ur Phencyclidine (PCP) NEGATIVE (NEGATIVE) Urine Amphetamine NEGATIVE (NEGATIVE) U Benzodiazepine Level NEGATIVE (NEGATIVE) Urine Cocaine NEGATIVE (NEGATIVE) Urine Marijuana (THC) NEGATIVE (NEGATIVE) ABO Group O Rh Factor POSITIVE Antibody Screen NEGATIVE (NEGATIVE) 11/19/21 Range/Units 17:02 WBC (4.0-10.5) K/mm3 RBC (4.1-5.4) M/mm3 Hgb (12.0-16.0) gm/dl Hct (35-47) % MCV (78-100) fl MCH (26-32) pg MCHC (32-36) g/dl RDW (11.5-14.0) % Plt Count (150-450) K/mm3 MPV (7.5-11.0) fl Gran % (36.0-66.0) % Eos # (Auto) (0-0.5) Absolute Lymphs (auto) (1.0-4.6) Absolute Monos (auto) (0.0-1.3) Lymphocytes % (24.0-44.0) % Monocytes % (0.0-12.0) % Eosinophils % (0.00-5.0) % Basophils % (0.0-0.4) % Absolute Granulocytes (1.4-6.9) Basophils # (0-0.4) PT 13.1 H (9.4-12.5) SECONDS INR 1.11 (0.8-3.0) APTT 31.0 (25.1-36.5) SECONDS Urine Opiates Level (NEGATIVE) Ur Methadone (NEGATIVE) Urine Barbiturates (NEGATIVE) Ur Phencyclidine (PCP) (NEGATIVE) Urine Amphetamine (NEGATIVE) U Benzodiazepine Level (NEGATIVE) Urine Cocaine (NEGATIVE) Urine Marijuana (THC) (NEGATIVE) ABO Group Rh Factor Antibody Screen (NEGATIVE) - Radiology Impressions Radiology Exams & Impressions: Radiology Procedures Category Date Time Status OB BIOPHYSICAL W/O NON STRESS [US] Stat Exams 11/19/21 15:44 Completed OB BIOPHYSICAL W/O NON STRESS [US] Stat Exams 11/19/21 15:44 Completed Assessment/Plan (1) Twin gestation in third trimester Current Visit: Yes Status: Acute Code(s): O30.003 - TWIN PREG, UNSP NUM PLCNTA & AMNIO SACS, THIRD TRIMESTER (2) contractions Current Visit: Yes Status: Acute Code(s): O47.00 - FALSE LABOR BEFORE 37 COMPLETED WEEKS OF GEST, UNSP TRI (3) Heterozygous factor V Leiden affecting in third trimester, antepartum Current Visit: Yes Status: Acute Code(s): O99.113 - OTH DIS OF BLD/BLD-FORM ORG/IMMUN MECHNSM COMP PREG, 3RD TRI; D68.51 - ACTIVATED PROTEIN C RESISTANCE (4) Premature cervical dilation in third trimester Current Visit: Yes Status: Acute Code(s): O34.33 - MATERNAL CARE FOR CERVICAL INCOMPETENCE, THIRD TRIMESTER
--- NOTE | 2021-11-20 07:34 | PCM.NOTE ---
Date and Time: 11/20/21730 Subjective Assessment: hd #2 pt currently 36 2/7 wks twin gestation doing well resting in bed and denies vaginal bleeding or srom. stats irregular contx. exam; abd; gravid exam; /-2/vtx/intact a/p iup 36 2/7 wks twin gestation with advanced cervical dilitation; ptl will continue present management will continue with daily nst OBJECTIVE DATA Vital Signs: Vital Signs - 24 hr Temp Pulse Resp BP BP Pulse Ox 11/20/21 05:10 98.7 F 102 H 20 112/71 97 11/20/21 01:00 98.4 F 101 H 20 108/68 98 11/19/21 17:33 97.6 F 115 H 20 124/68 97 11/19/21 14:42 97.6 F 115 H 20 124/68 97 11/19/21 14:30 97.6 F 115 H 20 124/68 97 Pain Assessment - Last Documented Pain Intensity 4 Pain Scale Used 0-10 Pain Scale Intake and Output: Intake & Output 11/17/21 11/18/21 11/19/21 11/20/21 11:59 11:59 11:59 11:59 Intake Total 600 Balance 600 Weight 122.47 kg Lab Results: Lab Results-Last 24 Hours 11/19/21 11/19/21 11/19/21 Range/Units 16:15 16:37 16:37 WBC 8.9 (4.0-10.5) K/mm3 RBC 3.66 L (4.1-5.4) M/mm3 Hgb 10.2 L (12.0-16.0) gm/dl Hct 30.3 L (35-47) % MCV 82.8 (78-100) fl MCH 27.9 (26-32) pg MCHC 33.7 (32-36) g/dl RDW 15.1 H (11.5-14.0) % Plt Count 310 (150-450) K/mm3 MPV 9.4 (7.5-11.0) fl Gran % 74.9 H (36.0-66.0) % Eos # (Auto) 0.10 (0-0.5) Absolute Lymphs (auto) 1.53 (1.0-4.6) Absolute Monos (auto) 0.60 (0.0-1.3) Lymphocytes % 17.2 L (24.0-44.0) % Monocytes % 6.7 (0.0-12.0) % Eosinophils % 1.1 (0.00-5.0) % Basophils % 0.1 (0.0-0.4) % Absolute Granulocytes 6.65 (1.4-6.9) Basophils # 0.01 (0-0.4) PT (9.4-12.5) SECONDS INR (0.8-3.0) APTT (25.1-36.5) SECONDS Urine Opiates Level NEGATIVE (NEGATIVE) Ur Methadone NEGATIVE (NEGATIVE) Urine Barbiturates NEGATIVE (NEGATIVE) Ur Phencyclidine (PCP) NEGATIVE (NEGATIVE) Urine Amphetamine NEGATIVE (NEGATIVE) U Benzodiazepine Level NEGATIVE (NEGATIVE) Urine Cocaine NEGATIVE (NEGATIVE) Urine Marijuana (THC) NEGATIVE (NEGATIVE) ABO Group O Rh Factor POSITIVE Antibody Screen NEGATIVE (NEGATIVE) 11/19/21 Range/Units 17:02 WBC (4.0-10.5) K/mm3 RBC (4.1-5.4) M/mm3 Hgb (12.0-16.0) gm/dl Hct (35-47) % MCV (78-100) fl MCH (26-32) pg MCHC (32-36) g/dl RDW (11.5-14.0) % Plt Count (150-450) K/mm3 MPV (7.5-11.0) fl Gran % (36.0-66.0) % Eos # (Auto) (0-0.5) Absolute Lymphs (auto) (1.0-4.6) Absolute Monos (auto) (0.0-1.3) Lymphocytes % (24.0-44.0) % Monocytes % (0.0-12.0) % Eosinophils % (0.00-5.0) % Basophils % (0.0-0.4) % Absolute Granulocytes (1.4-6.9) Basophils # (0-0.4) PT 13.1 H (9.4-12.5) SECONDS INR 1.11 (0.8-3.0) APTT 31.0 (25.1-36.5) SECONDS Urine Opiates Level (NEGATIVE) Ur Methadone (NEGATIVE) Urine Barbiturates (NEGATIVE) Ur Phencyclidine (PCP) (NEGATIVE) Urine Amphetamine (NEGATIVE) U Benzodiazepine Level (NEGATIVE) Urine Cocaine (NEGATIVE) Urine Marijuana (THC) (NEGATIVE) ABO Group Rh Factor Antibody Screen (NEGATIVE) Radiology Exams: Radiology Procedures Category Date Time Status OB BIOPHYSICAL W/O NON STRESS [US] Stat Exams 11/19/21 15:44 Completed OB BIOPHYSICAL W/O NON STRESS [US] Stat Exams 11/19/21 15:44 Completed Assessment/Plan (1) Twin gestation in third trimester Current Visit: Yes Status: Acute Code(s): O30.003 - TWIN PREG, UNSP NUM PLCNTA & AMNIO SACS, THIRD TRIMESTER (2) contractions Current Visit: Yes Status: Acute Code(s): O47.00 - FALSE LABOR BEFORE 37 COMPLETED WEEKS OF GEST, UNSP TRI (3) Heterozygous factor V Leiden affecting in third trimester, antepartum Current Visit: Yes Status: Acute Code(s): O99.113 - OTH DIS OF BLD/BLD-FORM ORG/IMMUN MECHNSM COMP PREG, 3RD TRI; D68.51 - ACTIVATED PROTEIN C RESISTANCE (4) Premature cervical dilation in third trimester Current Visit: Yes Status: Acute Code(s): O34.33 - MATERNAL CARE FOR CERVICAL INCOMPETENCE, THIRD TRIMESTER
[2021-11-20] MEDS ORDERED: XYLOCAINE 1% HCL 20 ML MDV IJ PRN (08:00)
[2021-11-20] MEDS: Protonix 40MG Tablet PO SCH (08:06)
[2021-11-21] MEDS: TYLENOL EXTRA STRENGTH 500 MG PO PRN ×2 (00:30→15:15)
[2021-11-21 08:37] LABS: HBsAg Screen Negative (Negative)
[2021-11-21] MEDS: Protonix 40MG Tablet PO SCH (09:45)
--- NOTE | 2021-11-21 10:01 | PCM.NOTE ---
Date and Time: 11/21/21 0959 Subjective Assessment: pt now 36 3/7 wks twin gestation doing well today with minimal uterine contx today vss afebrile abd; gravid exam; 6/80/-2/vtx a/p iup 36 3/7 wks twin gestation continue present management OBJECTIVE DATA Vital Signs: Vital Signs - 24 hr Temp Pulse Resp BP Pulse Ox 11/21/21 00:00 97.8 F 96 H 20 129/76 96 11/20/21 20:00 97.6 F 105 H 20 111/71 97 11/20/21 14:00 98.6 F 109 H 20 113/78 11/20/21 10:30 98.3 F 113 H 20 111/66 Pain Assessment - Last Documented Pain Intensity 0 Pain Scale Used 0-10 Pain Scale Intake and Output: Intake & Output 11/18/21 11/19/21 11/20/21 11/21/21 11:59 11:59 11:59 11:59 Intake Total 600 1500 Balance 600 1500 Weight 122.47 kg Lab Results: Lab Results-Last 24 Hours 11/19/21 Range/Units 16:37 Hep Bs Antigen Negative (Negative) Radiology Exams: Radiology Procedures Category Date Time Status OB BIOPHYSICAL W/O NON STRESS [US] Stat Exams 11/19/21 15:44 Completed OB BIOPHYSICAL W/O NON STRESS [US] Stat Exams 11/19/21 15:44 Completed Assessment/Plan (1) Twin gestation in third trimester Current Visit: Yes Status: Acute Code(s): O30.003 - TWIN PREG, UNSP NUM PLCNTA & AMNIO SACS, THIRD TRIMESTER (2) contractions Current Visit: Yes Status: Acute Code(s): O47.00 - FALSE LABOR BEFORE 37 COMPLETED WEEKS OF GEST, UNSP TRI (3) Heterozygous factor V Leiden affecting in third trimester, an tepartum Current Visit: Yes Status: Acute Code(s): O99.113 - OTH DIS OF BLD/BLD-FORM ORG/IMMUN MECHNSM COMP PREG, 3RD TRI; D68.51 - ACTIVATED PROTEIN C RESISTANCE (4) Premature cervical dilation in third trimester Current Visit: Yes Status: Acute Code(s): O34.33 - MATERNAL CARE FOR CERVICAL INCOMPETENCE, THIRD TRIMESTER
[2021-11-21] MEDS ORDERED: Lactated Ringers 1,000 ML IV ONE (16:30)
[2021-11-21] MEDS: Lactated Ringers 1,000 ML IV SCH (16:32)
[2021-11-22] MEDS: TYLENOL EXTRA STRENGTH 500 MG PO PRN ×2 (03:12→16:35)
[2021-11-22] MEDS: Protonix 40MG Tablet PO SCH ×2 (10:16→12:12)
--- NOTE | 2021-11-22 10:35 | PCM.NOTE ---
Date and Time: 11/22/21 1030 Subjective Assessment: hd 3 pt is 36 4/7 wks twin gestation currently here for advanced cervical dilitation. doing well without complaints. vss afebrile abd; soft uterus; firm a/p iup at 36 4/7 wks twin gestation with advanced cervical dilitation ptl will continue present management at this time OBJECTIVE DATA Vital Signs: Vital Signs - 24 hr Temp Pulse Resp BP Pulse Ox 11/22/21 09:00 97.9 F 99 H 20 118/77 98 11/21/21 20:26 98.4 F 106 H 20 114/77 97 Pain Assessment - Last Documented Pain Intensity 4 Pain Scale Used 0-10 Pain Scale Intake and Output: Intake & Output 11/19/21 11/20/21 11/21/21 11/22/21 11:59 11:59 11:59 11:59 Intake Total 600 1500 1381 Balance 600 1500 1381 Weight 122.47 kg Radiology Exams: Radiology Procedures Category Date Time Status OB LIMITED [US] Routine Exams 11/23/21 10:00 Ordered Assessment/Plan (1) Twin gestation in third trimester Current Visit: Yes Status: Acute Code(s): O30.003 - TWIN PREG, UNSP NUM PLCNTA & AMNIO SACS, THIRD TRIMESTER (2) contractions Current Visit: Yes Status: Acute Code(s): O47.00 - FALSE LABOR BEFORE 37 COMPLETED WEEKS OF GEST, UNSP TRI (3) Heterozygous factor V Leiden affecting in third trimester, antepartum Current Visit: Yes Status: Acute Code(s): O99.113 - OTH DIS OF BLD/BLD-FORM ORG/IMMUN MECHNSM COMP PREG, 3RD TRI; D68.51 - ACTIVATED PROTEIN C RESISTANCE (4) Premature cervical dilation in third trimester Current Visit: Yes Status: Acute Code(s): O34.33 - MATERNAL CARE FOR CERVICAL INCOMPETENCE, THIRD TRIMESTER
[2021-11-23] MEDS: TYLENOL EXTRA STRENGTH 500 MG PO PRN (06:54)
--- NOTE | 2021-11-23 09:30 | PCM.NOTE ---
Date and Time: 11/23/21927 Subjective Assessment: hd 4 pt resting in bed and doing well. ambulating and tolerating diet vss afebrile abd; soft uterus; gravid a/p iup at 36 5/7 twin gestation with advanced cervical dilitation will continue present management possible augmentation tomorrow growth scan done today showing adequate growth OBJECTIVE DATA Vital Signs: Vital Signs - 24 hr Temp Pulse Resp BP Pulse Ox 11/23/21 08:26 97.9 F 82 20 126/90 11/22/21 22:29 98.3 F 103 H 18 121/83 97 Pain Assessment - Last Documented Pain Intensity 7 Pain Scale Used 0-10 Pain Scale Intake and Output: Intake & Output 11/20/21 11/21/21 11/22/21 11/23/21 11:59 11:59 11:59 11:59 Intake Total 600 1500 1381 1600 Balance 600 1500 1381 1600 Weight 122.47 kg Radiology Exams: Radiology Procedures Category Date Time Status OB FOLLOW UP PER FETUS [US] Routine Exams 11/23/21 09:01 Ordered OB FOLLOW UP PER FETUS [US] Routine Exams 11/23/21 10:00 Ordered Assessment/Plan (1) Twin gestation in third trimester Current Visit: Yes Status: Acute Code(s): O30.003 - TWIN PREG, UNSP NUM PLCNTA & AMNIO SACS, THIRD TRIMESTER (2) contractions Current Visit: Yes Status: Acute Code(s): O47.00 - FALSE LABOR BEFORE 37 COMPLETED WEEKS OF GEST, UNSP TRI (3) Heterozygous factor V Leiden affecting in third trimester, antepartum Current Visit: Yes Status: Acute Code(s): O99.113 - OTH DIS OF BLD/BLD-FORM ORG/IMMUN MECHNSM COMP PREG, 3RD TRI; D68.51 - ACTIVATED PROTEIN C RESISTANCE (4) Premature cervical dilation in third trimester Current Visit: Yes Status: Acute Code(s): O34.33 - MATERNAL CARE FOR CERVICAL INCOMPETENCE, THIRD TRIMESTER
[2021-11-23 10:24] LABS: ABO TYPING O; Antibody Screen NEGATIVE (NEGATIVE); RH TYPING POSITIVE
[2021-11-23 10:28] LABS: CROSS MATCH (PRBC) COMPATIBLE (COMPATIBLE)
--- NOTE | 2021-11-23 11:00 | XRAY ---
Indication: growth. Twin . OB ultrasound twin A performed. Comparison: None Twin A is currently in cephalic presentation. heart rate 127 BPM. BPD measures 8.83 cm corresponding to 35 weeks 5 days. HC measures 32.47 cm corresponding to 36 weeks 5 days. AC measures 31.51 cm corresponding to 35 weeks 3 days. FL measures 7.56 cm corresponding to 38 weeks 5 days. Estimated weight 6 lbs. 8 oz., +/-1 lb. 0 oz. LOUIE is 12.6 cm. Impression: Viable intrauterine twin . Mean gestational age twin A is 36 weeks 6 days. Expected date confinement is December 15, 2021.
--- NOTE | 2021-11-23 11:01 | XRAY ---
Indication: growth. Twin . OB ultrasound twin B performed. Comparison: None Twin B is currently in cephalic presentation. heart rate 128 BPM. BPD measures 8.71 cm corresponding to 35 weeks 1 days. HC measures 34.18cm corresponding to 39 weeks 3 days. AC measures 35.59 cm corresponding to 39 weeks 3 days. FL measures 7.84 cm corresponding to 40 weeks 1 days. Estimated weight 8 lbs. 1 oz., +/-1 lb. 3 oz. LOUIE is 11.3 cm. Impression: Viable intrauterine twin . Mean gestational age twin B is 38 weeks 5 days. Expected date confinement is December 02, 2021.
[2021-11-24] MEDS: TYLENOL EXTRA STRENGTH 500 MG PO PRN (01:41)
[2021-11-24] MEDS: Protonix 40MG Tablet PO SCH (07:49)
--- NOTE | 2021-11-24 13:42 | PCM.NOTE ---
Date and Time: 11/24/21 1339 Subjective Assessment: pt is 36 6/7 wks twin gestation admitted for advanced cervical dilitation doing well resting comfortably in bed and denies srom or vaginal bleeding with irregular uterine contx. vss afebrile abd; gravid exam; /-2/vtx/intact a/p iup 36 6/7 wks gestation with advanced cervical dilitation, heterozygous factor 5 leiden will cpm anticipate augmentation tomorrow growth scan done yesterday indicating vtx/vtx with adequate growth OBJECTIVE DATA Vital Signs: Vital Signs - 24 hr Temp Pulse Resp BP Pulse Ox 11/24/21 08:00 98.3 F 94 H 18 135/81 97 11/23/21 20:00 98.8 F 91 H 18 132/85 96 Pain Assessment - Last Documented Pain Intensity 8 Pain Scale Used 0-10 Pain Scale Intake and Output: Intake & Output 11/22/21 11/23/21 11/24/21 11/25/21 11:59 11:59 11:59 11:59 Intake Total 1381 1600 700 Balance 1381 1600 700 Radiology Exams: Radiology Procedures Category Date Time Status OB FOLLOW UP PER FETUS [US] Routine Exams 11/23/21 09:01 Completed OB FOLLOW UP PER FETUS [US] Routine Exams 11/23/21 10:00 Completed Assessment/Plan (1) Twin gestation in third trimester Current Visit: Yes Status: Acute Code(s): O30.003 - TWIN PREG, UNSP NUM PLCNTA & AMNIO SACS, THIRD TRIMESTER (2) contractions Current Visit: Yes Status: Acute Code(s): O47.00 - FALSE LABOR BEFORE 37 COMPLETED WEEKS OF GEST, UNSP TRI (3) Heterozygous factor V Leiden affecting in third trimester, antepartum Current Visit: Yes Status: Acute Code(s): O99.113 - OTH DIS OF BLD/BLD-FORM ORG/IMMUN MECHNSM COMP PREG, 3RD TRI; D68.51 - ACTIVATED PROTEIN C RESISTANCE (4) Premature cervical dilation in third trimester Current Visit: Yes Status: Acute Code(s): O34.33 - MATERNAL CARE FOR CERVICAL INCOMPETENCE, THIRD TRIMESTER
[2021-11-24] MEDS ORDERED: Lactated Ringers 1,000 ML IV ONE (23:59)
[2021-11-25] MEDS ORDERED: OMNIPEN 2 GM*** 2 G in Sodium Chloride 100ML MINI-BAG PLUS 100 ML IV ONE (01:00)
[2021-11-25] MEDS: TYLENOL EXTRA STRENGTH 500 MG PO PRN (01:13)
[2021-11-25] MEDS ORDERED: Lactated Ringers 1,000 ML IV ONE ×3 (02:43→08:30)
[2021-11-25] MEDS ORDERED: Lactated Ringers 1,000 ML IV SCH (03:00)
[2021-11-25] MEDS ORDERED: OMNIPEN 1 GM*** 1 GM in Sodium Chloride 100ML MINI-BAG PLUS 100 ML IV SCH (05:00)
[2021-11-25] MEDS: PITOCIN 30 UNITS/ LR 500 ML 30 UNITS/500 ML PLAST..BAG IV SCH ×2 (06:05→08:36)
[2021-11-25] MEDS ORDERED: Astramorph-Pf 5 MG/10 ML ONE (07:37)
[2021-11-25] MEDS ORDERED: XYLOCAINE 2%/Epi 1:200000 20ML VIAL MPF ONE (07:43)
[2021-11-25] MEDS ORDERED: Marcaine 0.5%/Epinephrine 10 ML ONE ×2 (07:43)
[2021-11-25] MEDS ORDERED: KEFZOL 1 GM ONE (07:44)
[2021-11-25] MEDS ORDERED: Pitocin 10 UNITS/ML ONE (07:44)
[2021-11-25] MEDS ORDERED: Decadron 4 MG INJ ONE (07:57)
[2021-11-25] MEDS ORDERED: Mylicon 80MG PO PRN (08:25)
[2021-11-25] MEDS ORDERED: Nubain 10 MG/ML IV PRN (08:29)
[2021-11-25] MEDS ORDERED: HOLD NARCOTIC ANALGESICS AND SEDATIVES X24 HR MC PRN (08:29)
[2021-11-25] MEDS ORDERED: PERCOCET TABLET 5/325MG PO PRN (08:29)
[2021-11-25 09:36] LABS: Appearance CLEAR (CLEAR); Bacteria RARE /HPF (NEGATIVE); Bilirubin NEGATIVE (NEGATIVE); Blood LARGE Ery/ul (0-5); Glucose NEGATIVE (NEGATIVE); Ketones SMALL (NEGATIVE); Leukocyte Esterase NEGATIVE (NEGATIVE); Mucus SLIGHT /HPF (NEGATIVE); Nitrite NEGATIVE (NEGATIVE); Protein,Urine Dip NEGATIVE (Negative); RBC 51-100 /HPF (0-2); Urobilinogen 2 mg/dL (0-1)
[2021-11-25] MEDS: Dextrose 5%-Lr IV Solution 1000 ML 1,000 ML IV SCH ×2 (10:49→19:29)
--- NOTE | 2021-11-25 12:45 | OP ---
SURGERY DATE/TIME: 11/25/2021722 PREOPERATIVE DIAGNOSIS: Intrauterine at 37 weeks gestation with Twin B with malpresentation, face presentation after having delivered Twin A vaginally. POSTOPERATIVE DIAGNOSIS: Twin B malpresentation, face presentation. PROCEDURE: Primary section, low flap transverse uterine incision, Pfannenstiel skin incision. SURGEON: Vickey Rinaldi D.O. SHOCHET: surgical brace maker. ANESTHESIA: Epidural. ESTIMATED BLOOD LOSS: 600 cc. COMPLICATIONS: None. INDICATIONS: The risks, benefits, indications and alternatives of the procedure were reviewed with the patient prior to procedure. The patient understood the risk of infection, bleeding, bowel injury, bladder injury, ureteral injury, uterine perforation, pelvic infection and thromboembolic disorder associated with the surgery however desires to have this surgery as a possible means to alleviate her current medical condition. DESCRIPTION OF PROCEDURE AND FINDINGS: At this point the patient is taken to the operating room after having delivered Twin A vaginally at 0705 hours. The patient was noted to have a malpresentation with Twin B with face presentation. At this point it was determined to go to the OR for delivery. The patient was taken to the OR where her epidural anesthesia was found to be adequate. She was then prepared and draped in normal sterile fashion in the dorsal supine position with a leftward tilt. A Pfannenstiel skin incision is made with a scalpel and carried through to the underlying layer of the fascia with Bovie. The fascia was then incised in the midline and the incision extended laterally with Luke scissors. The superior aspect of the fascial incision was then grasped Leobardo clamps elevated and the underlying rectus muscles dissected off bluntly. Attention is then turned to the inferior aspect of this incision which in similar fashion was grasped, tented up with Leobardo clamps and the rectus muscles dissected off bluntly. The rectus muscles were then in the midline and the peritoneum identified, tented up and entered sharply with Metzenbaum scissors. The peritoneal incision was then extended superiorly and inferiorly with good visualization of the bladder. The bladder blade was then inserted and the vesicouterine peritoneum identified, grasped with pickups and entered sharply with Metzenbaum scissors. This incision was then extended laterally and bladder flap created digitally. The bladder blade was then reinserted and the lower uterine segment incised in transverse fashion with a scalpel. The uterine incision was then extended laterally with bandage scissors. The bladder blade was then removed and the infant's head was delivered atraumatically. The nose and mouth were suctioned with bulb suction and the cord clamped and cut. The was then handed off to awaiting nurses. The placenta was then removed manually. The uterus exteriorized and cleared of all clots and debris. The uterine incision was repaired with 1-0 chromic in a running locked fashion. A second layer of the same suture was used to obtain excellent hemostasis. From this point the uterus is then returned to the abdomen. The gutters were cleared of clots and the peritoneal muscle closed in interrupted fashion using 2-0 chromic suture. The fascia was re-approximated with 0 Vicryl in running fashion. The subcutaneous layer was closed with 3-0 Vicryl suture and the skin was closed with absorbable jacky called INSORB. The patient tolerated the procedure well. Sponge, lap, needle and instrument counts were correct x2. The patient was then taken to the recovery room in stable condition. The patient delivered Twin A at 0705 hours with 's 8 at 1 minute and 9 at 5 minutes and the weight 6 pounds 12 ounces. Twin B was delivered at 0733 hours, 's were 9 at 1 minute and 9 at 5 minutes and the weight of the baby was 7 pounds 5 ounces.
[2021-11-25] MEDS: Protonix 40MG Tablet PO SCH (14:00)
[2021-11-25] MEDS: KEFZOL 1 GM** 3 G in Sodium Chloride 0.9% 50 ML 50 ML IV SCH ×2 (14:24→22:27)
[2021-11-25] MEDS: CLARITIN 10 MG PO PRN (15:15)
[2021-11-26 05:07] LABS: Absolute Neutrophil Ct (ANC) 10.44 (1.4-6.9); Basophil (Absolute #) 0.01 (0-0.4); Eosinophil % 0.3 % (0.00-5.0); Eosinophil (Absolute #) 0.04 (0-0.5); Hematocrit 25.7 % (35-47); Hemoglobin 8.6 gm/dl (12.0-16.0); Lymphocyte (Absolute #) 2.37 (1.0-4.6); Lymphocytes % 17.2 % (24.0-44.0); Mean Cell Volume 83.4 fl (78-100); Mean Corpuscular Hemoglobin 27.9 pg (26-32); Mean Corpuscular Hgb Concent. 33.5 g/dl (32-36); Mean Platelet Volume 9.7 fl (7.5-11.0); Monocyte (Absolute #) 0.88 (0.0-1.3); Monocytes % 6.4 % (0.0-12.0); Platelet Count 258 K/mm3 (150-450); Red Blood Count 3.08 M/mm3 (4.1-5.4); Red Cell Distribution Width 15.1 % (11.5-14.0); White Blood Count 13.7 K/mm3 (4.0-10.5)
[2021-11-26] MEDS: CLARITIN 10 MG PO PRN (05:35)
--- NOTE | 2021-11-26 06:09 | PCM.NOTE ---
Date and Time: 11/26/21606 Subjective Assessment: pod 1 sp csection pt resting in bed and doing well able to ambulate and tolerate diet vss afebrile abd; soft incision dry with dressing intact with minimal soiling uterus; firm lochia; mild hgb; 8.2 a/p sp csection pod 1 secondary to malpresentation face presentation twin b will anticipate discharge home tomorrow OBJECTIVE DATA Vital Signs: Vital Signs - 24 hr Temp Pulse Resp BP BP Pulse Ox 11/26/21 06:00 97 11/26/21 05:00 98.1 F 86 115/78 97 11/26/21 04:00 97 11/26/21 03:00 97 11/26/21 02:00 98 11/26/21 01:00 98.1 F 86 16 115/78 97 11/26/21 00:00 98 11/25/21 22:58 98 11/25/21 22:00 96 11/25/21 21:00 97 11/25/21 20:00 98 11/25/21 19:00 93 L 11/25/21 18:00 98.9 F 97 11/25/21 17:00 96 11/25/21 16:00 97 11/25/21 15:00 97 11/25/21 14:00 100.1 F 89 20 121/70 95 11/25/21 13:00 95 11/25/21 12:00 98 11/25/21 11:00 97 H 20 136/87 98 11/25/21 10:00 118 H 20 133/99 98 11/25/21 09:35 96 H 20 134/87 97 11/25/21 09:20 118 H 20 133/99 98 11/25/21 09:05 98 H 20 122/83 100 11/25/21 08:50 98.1 F 107 H 20 128/66 100 11/25/21 07:15 95 H 111/64 96 11/25/21 07:00 99 H 142/62 96 11/25/21 06:45 96 H 113/63 97 11/25/21 06:30 100 H 126/69 97 11/25/21 06:15 107 H 123/67 98 Pain Assessment - Last Documented Pain Intensity [Anterior/ 0 Posterior] Pain Intensity 7 Pain Scale Used 0-10 Pain Scale Intake and Output: Intake & Output 11/23/21 11/24/21 11/25/21 11/26/21 11:59 11:59 11:59 11:59 Intake Total 5870 771 2093 9647 Output Total 6 5296 Balance 0490 797 6313 7480 Lab Results: Lab Results-Last 24 Hours 11/25/21 11/26/21 Range/Units 09:24 04:55 WBC 13.7 H (4.0-10.5) K/mm3 RBC 3.08 L (4.1-5.4) M/mm3 Hgb 8.6 L (12.0-16.0) gm/dl Hct 25.7 L (35-47) % MCV 83.4 (78-100) fl MCH 27.9 (26-32) pg MCHC 33.5 (32-36) g/dl RDW 15.1 H (11.5-14.0) % Plt Count 258 (150-450) K/mm3 MPV 9.7 (7.5-11.0) fl Gran % 76.0 H (36.0-66.0) % Eos # (Auto) 0.04 (0-0.5) Absolute Lymphs (auto) 2.37 (1.0-4.6) Absolute Monos (auto) 0.88 (0.0-1.3) Lymphocytes % 17.2 L (24.0-44.0) % Monocytes % 6.4 (0.0-12.0) % Eosinophils % 0.3 (0.00-5.0) % Basophils % 0.1 (0.0-0.4) % Absolute Granulocytes 10.44 H (1.4-6.9) Basophils # 0.01 (0-0.4) Urine Color YELLOW (YELLOW) Urine Appearance CLEAR (CLEAR) Urine pH 6.0 (5-6) Ur Specific [place] 1.010 (1.005-1.025) Urine Protein NEGATIVE (Negative) Urine Ketones SMALL (NEGATIVE) Urine Blood LARGE (0-5) Spike/ul Urine Nitrite NEGATIVE (NEGATIVE) Urine Bilirubin NEGATIVE (NEGATIVE) Urine Urobilinogen 2 (0-1) mg/dL Ur Leukocyte Esterase NEGATIVE (NEGATIVE) Urine WBC (Auto) 6-10 (0-5) /HPF Urine RBC (Auto) 51-100 (0-2) /HPF U Epithel Cells (Auto) NONE (FEW) /HPF Urine Bacteria (Auto) RARE (NEGATIVE) /HPF Urine Mucus (Auto) SLIGHT (NEGATIVE) /HPF Urine Glucose NEGATIVE (NEGATIVE) mg/dL Multi-Disciplinary Progress Notes: Multi-Disciplinary Progress Notes 11/25/21 07:15 (created 11/25/21 08:14) Respiratory Note by Gladys Lynn The mother was taken to OR for emergent C Section after Baby A was born. Mom was prepped for and Baby B was delivered via . Patient immediately cried upon delivery and was brought to warmer to be dried and stimulated. Baby dried and stimulated and taken over to mom. Initialized on 11/25/21 08:14 - END OF NOTE Assessment/Plan (1) Twin gestation in third trimester Current Visit: Yes Status: Acute Code(s): O30.003 - TWIN PREG, UNSP NUM PLCNTA & AMNIO SACS, THIRD TRIMESTER (2) contractions Current Visit: Yes Status: Acute Code(s): O47.00 - FALSE LABOR BEFORE 37 COMPLETED WEEKS OF GEST, UNSP TRI (3) Heterozygous factor V Leiden affecting in third trimester, antepartum Current Visit: Yes Status: Acute Code(s): O99.113 - OTH DIS OF BLD/BLD-FORM ORG/IMMUN MECHNSM COMP PREG, 3RD TRI; D68.51 - ACTIVATED PROTEIN C RESISTANCE (4) Premature cervical dilation in third trimester Current Visit: Yes Status: Acute Code(s): O34.33 - MATERNAL CARE FOR CE RVICAL INCOMPETENCE, THIRD TRIMESTER (5) S/P primary low transverse Current Visit: Yes Status: Acute Code(s): Z98.891 - HISTORY OF UTERINE SCAR FROM PREVIOUS SURGERY (6) Malpresentation of fetus Current Visit: Yes Status: Acute Code(s): O32.9XX0 - MATERNAL CARE FOR MALPRESENTATION OF FETUS, UNSP, UNSP (7) Postoperative anemia due to acute blood loss Current Visit: Yes Status: Acute Code(s): D62 - ACUTE POSTHEMORRHAGIC ANEMIA
--- NOTE | 2021-11-26 06:16 | PCM.DS ---
Discharge Summary Date of Admission: 11/22/21 10:30 Admitting Physician: JENNIFER EVERETT DO Consults: Consults on Case 11/20/21 07:00 Notify Anesthesia Provider PRN 11/25/21 11:44 Navigation ONCE Primary Care Provider: JL DIEHL Allergies Allergies aspartame Allergy (Verified 11/19/21 14:57) Hives latex Adverse Reaction (Verified 11/19/21 14:57) latex condoms make her have swelling and redness of vagina. Hospital Summary - Hospital Course Hospital Course: pt was admitted on november 20 for being with twin gestation in ptl at 36 wks gestation with advanced cervical dilitation at 6 cm. pt was placed on rest in the hospital secondary to advanced dilitation and subsequently progressed to becoming in labor on november 25 and delivered twin a vaginally however it was noted twin b was with face presentation and subsequently underwent primary csection on november 25 without complication. during postop period pt did well able to ambulate and tolerate diet. pt had stable hgb at 8.2 and at this time stable for discharge on november 27. pt was advised to fu in office in 2 wks and advised to keep incision clean and dry. pt was given norco for pain management and was advised to take iron supplementation and baby aspirin. all questions answered to her satisfaction. pt stable for discharge on november 27. - Vitals & Intake/Output Vital Signs: Vital Signs Temperature 97.8 F 11/26/21 06:06 Pulse Rate 83 11/26/21 06:06 Respiratory Rate 16 11/26/21 06:06 Blood Pressure 121/76 11/26/21 06:06 O2 Sat by Pulse Oximetry 98 11/26/21 06:06 Intake & Output: Intake & Output 11/23/21 11/24/21 11/25/21 11/26/21 11:59 11:59 11:59 11:59 Intake Total 3643 510 1284 9655 Output Total 4 9070 Balance 6843 033 0625 7480 - Lab Result Diagrams: 11/26/21 04:55 Lab Results-Last 24 Hrs: Lab Results-Last 24 Hours 11/25/21 11/26/21 Range/Units 09:24 04:55 WBC 13.7 H (4.0-10.5) K/mm3 RBC 3.08 L (4.1-5.4) M/mm3 Hgb 8.6 L (12.0-16.0) gm/dl Hct 25.7 L (35-47) % MCV 83.4 (78-100) fl MCH 27.9 (26-32) pg MCHC 33.5 (32-36) g/dl RDW 15.1 H (11.5-14.0) % Plt Count 258 (150-450) K/mm3 MPV 9.7 (7.5-11.0) fl Gran % 76.0 H (36.0-66.0) % Eos # (Auto) 0.04 (0-0.5) Absolute Lymphs (auto) 2.37 (1.0-4.6) Absolute Monos (auto) 0.88 (0.0-1.3) Lymphocytes % 17.2 L (24.0-44.0) % Monocytes % 6.4 (0.0-12.0) % Eosinophils % 0.3 (0.00-5.0) % Basophils % 0.1 (0.0-0.4) % Absolute Granulocytes 10.44 H (1.4-6.9) Basophils # 0.01 (0-0.4) Urine Color YELLOW (YELLOW) Urine Appearance CLEAR (CLEAR) Urine pH 6.0 (5-6) Ur Specific [place] 1.010 (1.005-1.025) Urine Protein NEGATIVE (Negative) Urine Ketones SMALL (NEGATIVE) Urine Blood LARGE (0-5) [place]/ul Urine Nitrite NEGATIVE (NEGATIVE) Urine Bilirubin NEGATIVE (NEGATIVE) Urine Urobilinogen 2 (0-1) mg/dL Ur Leukocyte Esterase NEGATIVE (NEGATIVE) Urine WBC (Auto) 6-10 (0-5) /HPF Urine RBC (Auto) 51-100 (0-2) /HPF U Epithel Cells (Auto) NONE (FEW) /HPF Urine Bacteria (Auto) RARE (NEGATIVE) /HPF Urine Mucus (Auto) SLIGHT (NEGATIVE) /HPF Urine Glucose NEGATIVE (NEGATIVE) mg/dL - Procedures and Test Procedures and Tests throughout Hospitalization: Therapy Orders & Screens 11/25/21 08:08 Standby STAT Comment: Diagnosis: LABOR Final Diagnosis/Problem List - Final Discharge Diagnosis/Problem (1) Twin gestation in third trimester Current Visit: Yes Status: Acute Code(s): O30.003 - TWIN PREG, UNSP NUM PLCNTA & AMNIO SACS, THIRD TRIMESTER (2) contractions Current Visit: Yes Status: Acute Code(s): O47.00 - FALSE LABOR BEFORE 37 COMPLETED WEEKS OF GEST, UNSP TRI (3) Heterozygous factor V Leiden affecting in third trimester, ant epartum Current Visit: Yes Status: Acute Code(s): O99.113 - OTH DIS OF BLD/BLD-FORM ORG/IMMUN MECHNSM COMP PREG, 3RD TRI; D68.51 - ACTIVATED PROTEIN C RESISTANCE (4) Premature cervical dilation in third trimester Current Visit: Yes Status: Acute Code(s): O34.33 - MATERNAL CARE FOR CERVICAL INCOMPETENCE, THIRD TRIMESTER (5) S/P primary low transverse Current Visit: Yes Status: Acute Code(s): Z98.891 - HISTORY OF UTERINE SCAR FROM PREVIOUS SURGERY (6) Malpresentation of fetus Current Visit: Yes Status: Acute Code(s): O32.9XX0 - MATERNAL CARE FOR MALPRESENTATION OF FETUS, UNSP, UNSP (7) Postoperative anemia due to acute blood loss Current Visit: Yes Status: Acute Code(s): D62 - ACUTE POSTHEMORRHAGIC ANEMIA - Discharge Disposition: Home, Self-Care Condition: Stable Prescriptions: New Ferric Maltol [Accrufer] 30 mg PO BID 30 Days #60 Hydrocodone/Acetaminophen [Hydrocodone-Acetamin 5-325 mg] 1 tab PO Q6HPRN PRN #20 tablet MDD 4 PRN Reason: Pain Ferric Maltol [Accrufer] 30 mg PO BID #60 Continue Pnv No.103/Folic/Om3s/Fish Oil [ Gummies] 1 each PO DAILY Nifedipine 10 mg [Procardia 10 mg] 10 mg PO TID Omeprazole Magnesium [Prilosec Otc] 20 mg PO DAILY Follow up with: JL DIEHL [Primary Care Provider] - JENNIFER EVERETT DO [ACTIVE STAFF] - 2 weeks (keep incision clean and dry no heavy lifting take baby aspirin daily take iron twice daily call me for any medical issues that may arise)
[2021-11-26] MEDS ORDERED: NORCO 5/325 MG PO PRN (08:25)
[2021-11-26] MEDS: ENOXAPARIN SODIUM SQ SCH (09:49)
[2021-11-26] MEDS: FERREX 150 PO SCH (09:50)
[2021-11-26] MEDS: Colace 100 MG PO SCH ×2 (09:50→23:13)
[2021-11-26] MEDS ORDERED: Adacel Vial IM ONE (10:00)
[2021-11-26] MEDS: TYLENOL EXTRA STRENGTH 500 MG PO PRN (16:13)
[2021-11-26] MEDS: Protonix 40MG Tablet PO SCH (18:40)
[2021-11-27] MEDS: MOTRIN 400 MG PO PRN ×2 (00:13→09:57)
[2021-11-27 02:38] VITALS: O2SAT 97
[2021-11-27] MEDS: ENOXAPARIN SODIUM SQ SCH (09:55)
[2021-11-27] MEDS: FERREX 150 PO SCH (09:57)
[2021-11-27] MEDS: Protonix 40MG Tablet PO SCH (09:57)
[2021-11-27] MEDS ORDERED: Adacel Vial IM ONE (10:00)
[2021-11-27 10:13] VITALS: BP 142/90; PULSE 97
== END 2021-11-27 14:40 | disposition home or self-care (01) | DRG 786 ==
LOC: WHC 13:28 → OB 13:56 → UNDOADMOB 13:56 → OBSVTOIN 11-22 10:30
PROVIDERS: ADMIT Obstetrics & Gynecology; ATTEND Obstetrics & Gynecology
PROC: 10E0XZZ Delivery of Products of Conception, External Approach (ICD-10-PCS; principal; 2021-11-25)
PROC: 10D00Z1 Extraction of Products of Conception, Low, Open Approach (ICD-10-PCS; 2021-11-25)
DX: O30.003 Twin pregnancy, unspecified number of placenta and unspecified number of amniotic sacs, third trimester (principal); O34.33 Maternal care for cervical incompetence, third trimester; O99.113 Other diseases of the blood and blood-forming organs and certain disorders involving the immune mechanism complicating pregnancy, third trimester; D68.51 Activated protein C resistance; D62 Acute posthemorrhagic anemia; O32.9XX2 Maternal care for malpresentation of fetus, unspecified, fetus 2; O47.00 False labor before 37 completed weeks of gestation, unspecified trimester; Z37.2 Twins, both liveborn; Z3A.36 36 weeks gestation of pregnancy; Z98.891 History of uterine scar from previous surgery
CPT/HCPCS: 36415; 59025; 59426; 59612; 59620; 62322; 64488; 76816; 76819; 76937; 76942; 80307; 81001; 81002; 85025; 85610; 85730; 86850; 86900; 86901; 86922; 87086; 87340; 88307; 90472; 90715; 94799; 99140; 99218; 99225; 99232; G0378; J0290; J0690; J1100; J1650; J2274; J2405; J2590; L0625; A9270-GY

== ENCOUNTER 2021-12-02 12:37 | Emergency (ER) | payer OTHER ==
--- NOTE | 2021-12-02 13:52 | XRAY ---
Indication: Pulmonary congestion. Comparison: None Portable chest demonstrates normal heart, lungs, and bony thorax.
--- NOTE | 2021-12-02 14:27 | ERPHSYRPT ---
- History of Present Illness Time Seen by Provider: 12/02/21 12:45 Source: patient Patient Subjective Stated Complaint: LEGS AND FEET SWOLLEN Triage Nursing Assessment: PT AMBULATED BACK TO ROOM, PT ALERT AND ORIENTED X3, SENT HERE BY DR. EVERETT, HAD TWINS 11/25/21, ONE VAGINAL AND ONE , LEGS ARE 3+ PITTING EDEMA, PAIN WHEN WALKS AT TIMES, LIMITED ROM IN ANKLES, PT STATES SHE HAS HAD THEM ELEVATED WITH VERY MINIMAL IMPROVEMENT, PT'S INCISION COVERED WITH DRESSING, NO DRAINAGE NOTED. 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 Patient is 1 week of twins. One was delivered vaginally the second was delivered via . Patient is not having any issues with the incision. No pain no drainage. No fever. No tenderness. Patient is M2. Patient otherwise asymptomatic. No chest pain or shortness of breath. No nausea vomiting or diaphoresis. No diarrhea. No change in urine output. Patient is otherwise healthy. She voices no other complaints or concerns at this time. Timing/Duration: other (2 days) Severity: moderate Modifying Factors: Improves With: nothing Associated Symptoms: denies symptoms Allergies/Adverse Reactions: aspartame Allergy (Verified 12/02/21 12:49) Hives latex Adverse Reaction (Verified 12/02/21 12:49) latex condoms make her have swelling and redness of vagina. Home Medications: Pnv No.103/Folic/Om3s/Fish Oil [ Gummies] 1 each PO DAILY 05/10/21 [History] Omeprazole Magnesium [Prilosec Otc] 20 mg PO DAILY PRN PRN 11/19/21 [History] Hx Tetanus, Diphtheria Vaccination/Date Given: Yes Hx Influenza Vaccination/Date Given: Yes Hx Pneumococcal Vaccination/Date Given: No Immunizations Up to Date: Yes Travel Risk - International Travel Have you traveled outside of the country in past 3 weeks: No - Coronavirus Screening Are you exhibiting any of the following symptoms?: No Close contact with a COVID-19 positive Pt in past 14-21 Days: No - Vaccine Status Have you recieved a Covid-19 vaccination: No - Review of Systems Constitutional: No Symptoms, No Fever, No Chills Eyes: No Symptoms Ears, Nose, & Throat: No Symptoms Respiratory: No Symptoms, No Cough, No Dyspnea Cardiac: No Symptoms, No Chest Pain, No Edema, No Syncope Abdominal/Gastrointestinal: No Symptoms, No Abdominal Pain, No Nausea, No Vomiting, No Diarrhea Genitourinary Symptoms: No Symptoms, No Dysuria Musculoskeletal: No Symptoms, No Back Pain, No Neck Pain Skin: No Symptoms, No Rash Neurological: No Symptoms, No Dizziness, No Focal Weakness, No Sensory Changes Psychological: No Symptoms Endocrine: No Symptoms Hematologic/Lymphatic: No Symptoms Immunological/Allergic: No Symptoms All Other Systems: Reviewed and Negative - Past Medical History Pertinent Past Medical History: Yes Neurological History: Migraines ENT History: No Pertinent History Cardiac History: No Pertinent History Respiratory History: Asthma Endocrine Medical History: No Pertinent History Musculoskeletal History: No Pertinent History GI Medical History: Hemorrhoids, Irritable Bowel Psycho-Social History: No Pertinent History Female Reproductive Disorders: No Pertinent History Other Medical History: SICKLE CELL ANEMIA TRAIT, 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, FACTOR 5 - Past Surgical History Past Surgical History: Yes Neuro Surgical History: No Pertinent History Cardiac: No Pertinent History Respiratory: No Pertinent History Gastrointestinal: No Pertinent History Genitourinary: No Pertinent History Musculoskeletal: No Pertinent History Female Surgical History: Section Other Surgical History: TONSILLECTOMY - Social History Smoking Status: Never smoker Exposure to second hand smoke: No Drug Use: none Patient Lives Alone: No - Female History Hx Now: No - Nursing Vital Signs Nursing Vital Signs: Initial Vital Signs Temperature 97.6 F 12/02/21 12:41 Pulse Rate 65 12/02/21 12:41 Respiratory Rate 20 12/02/21 12:41 Blood Pressure 155/109 12/02/21 12:41 O2 Sat by Pulse Oximetry 98 12/02/21 12:41 Pain Scale Pain Intensity 0 - Physical Exam General Appearance: no apparent distress, alert Eye Exam: PERRL/EOMI, eyes nml inspection Ears, Nose, Throat Exam: normal ENT inspection, TMs normal, pharynx normal, moist mucous membranes Neck Exam: normal inspection, non-tender, supple, full range of motion Respiratory Exam: normal breath sounds, lungs clear, airway intact, No respiratory distress Cardiovascular Exam: regular rate/rhythm, normal heart sounds, normal peripheral pulses Gastrointestinal/Abdomen Exam: soft, normal bowel sounds, No tenderness, No mass Back Exam: normal inspection, normal range of motion, No CVA tenderness, No vertebral tenderness Extremity Exam: normal inspection, normal range of motion, pelvis stable, other (Negative Homans' sign bilaterally bilateral extremity pitting edema) Neurologic Exam: alert, oriented x 3, cooperative, normal mood/affect, sensation nml, No motor deficits Skin Exam: normal color, warm, dry, No rash Lymphatic Exam: No adenopathy SpO2 Interpretation: normal SpO2: 98 O2 Delivery: Room Air - Course Nursing assessment & vital signs reviewed: Yes EKG Interpreted by Me: RATE (53), Sinus Rhythm, NORMAL AXIS, NORMAL INTERVALS - Radiology Ultrasound Exam Venous Lower Extremity Ultrasound: tele radiology report (Negative DVT bilateral lower extremities.) Ordered Tests: Active Orders 24 hr Category Date Time Status Dryerman/Woman STAT Care 12/02/21 13:31 Active EKG-ER Only STAT Care 12/02/21 13:30 Active IV Insertion STAT Care 12/02/21 13:30 Active Pulse Oximetry (ED) STAT Care 12/02/21 13:30 Active CHEST 1 VIEW (PORTABLE) Stat Exams 12/02/21 13:31 Completed VENOUS BILATERAL EXTREMITY [US] Stat Exams 12/02/21 14:28 Completed CBC W DIFF Stat Lab 12/02/21 13:30 Completed CMP Stat Lab 12/02/21 14:30 Completed CULTURE,URINE Stat Lab 12/02/21 14:31 Received Manual Differential NC Stat Lab 12/02/21 13:30 Completed NT PRO BNP Stat Lab 12/02/21 14:30 Completed TROPONIN Q3H Lab 12/02/21 14:30 Completed TROPONIN Q3H Lab 12/02/21 16:20 Received TROPONIN Q3H Lab 12/02/21 19:45 Ordered TROPONIN Q3H Lab 12/02/21 22:45 Ordered TROPONIN Q3H Lab 12/03/21 01:45 Ordered UA W/RFX UR CULTURE Stat Lab 12/02/21 14:31 Completed Lab/Rad Data: Laboratory Result Diagrams 12/02/21 13:30 12/02/21 14:30 Laboratory Results 12/02/21 12/02/21 12/02/21 Range/Units 14:31 14:30 14:30 WBC (4.0-10.5) K/mm3 RBC (4.1-5.4) M/mm3 Hgb (12.0-16.0) gm/dl Hct (35-47) % MCV (78-100) fl MCH (26-32) pg MCHC (32-36) g/dl RDW (11.5-14.0) % Plt Count (150-450) K/mm3 MPV (7.5-11.0) fl Segmented Neutrophils (36.0-66.0) % Lymphocytes (Manual) (24-44) % Monocytes (Manual) (0.0-12.0) % Eosinophils (Manual) (0.00-3.0) % Platelet Estimate (NORMAL) RBC Morphology Anisocytosis Sodium 139 (137-145) mmol/L Potassium 4.0 (3.5-5.1) mmol/L Chloride 110 H (98-107) mmol/L Carbon Dioxide 26 (22-30) mmol/L Anion Gap 6.4 (5-15) MEQ/L BUN 5 L (7-17) mg/dL Creatinine 0.49 L (0.52-1.04) mg/dL Estimated GFR > 60.0 ML/MIN Glucose 74 (74-106) mg/dL Calcium 8.4 (8.4-10.2) mg/dL Total Bilirubin 0.70 (0.2-1.3) mg/dL AST 103 H (14-36) U/L ALT 33 (0-35) U/L Alkaline Phosphatase 183 H (38-126) U/L Troponin I < 0.012 (0.000-0.034) ng/mL NT-Pro-B Natriuret Pep 540 H (0-450) pg/mL Serum Total Protein 5.9 L (6.3-8.2) g/dL Albumin 2.9 L (3.5-5.0) g/dL Urine Color YELLOW (YELLOW) Urine Appearance CLEAR (CLEAR) Urine pH 7.0 (5-6) Ur Specific [place] 1.008 (1.005-1.025) Urine Protein NEGATIVE (Negative) Urine Ketones NEGATIVE (NEGATIVE) Urine Blood LARGE (0-5) Spike/ul Urine Nitrite NEGATIVE (NEGATIVE) Urine Bilirubin NEGATIVE (NEGATIVE) Urine Urobilinogen 2 (0-1) mg/dL Ur Leukocyte Esterase TRACE (NEGATIVE) Urine WBC (Auto) 11-15 (0-5) /HPF Urine RBC (Auto) 16-25 (0-2) /HPF U Epithel Cells (Auto) NONE (FEW) /HPF Urine Bacteria (Auto) RARE (NEGATIVE) /HPF Urine Mucus (Auto) SLIGHT (NEGATIVE) /HPF Urine Culture Reflexed YES (NO) Urine Glucose NEGATIVE (NEGATIVE) mg/dL 12/02/21 Range/Units 13:30 WBC 8.5 (4.0-10.5) K/mm3 RBC 3.28 L (4.1-5.4) M/mm3 Hgb 9.1 L (12.0-16.0) gm/dl Hct 27.6 L (35-47) % MCV 84.1 (78-100) fl MCH 27.7 (26-32) pg MCHC 33.0 (32-36) g/dl RDW 15.7 H (11.5-14.0) % Plt Count 520 H (150-450) K/mm3 MPV 8.3 (7.5-11.0) fl Segmented Neutrophils 72 H (36.0-66.0) % Lymphocytes (Manual) 21 L (24-44) % Monocytes (Manual) 1 (0.0-12.0) % Eosinophils (Manual) 6 H (0.00-3.0) % Platelet Estimate INCREASED (NORMAL) RBC Morphology ABNORMAL Anisocytosis 1+ Sodium (137-145) mmol/L Potassium (3.5-5.1) mmol/L Chloride (98-107) mmol/L Carbon Dioxide (22-30) mmol/L Anion Gap (5-15) MEQ/L BUN (7-17) mg/dL Creatinine (0.52-1.04) mg/dL Estimated GFR ML/MIN Glucose (74-106) mg/dL Calcium (8.4-10.2) mg/dL Total Bilirubin (0.2-1.3) mg/dL AST (14-36) U/L ALT (0-35) U/L Alkaline Phosphatase (38-126) U/L Troponin I (0.000-0.034) ng/mL NT-Pro-B Natriuret Pep (0-450) pg/mL Serum Total Protein (6.3-8.2) g/dL Albumin (3.5-5.0) g/dL Urine Color (YELLOW) Urine Appearance (CLEAR) Urine pH (5-6) Ur Specific [place] (1.005-1.025) Urine Protein (Negative) Urine Ketones (NEGATIVE) Urine Blood (0-5) Spike/ul Urine Nitrite (NEGATIVE) Urine Bilirubin (NEGATIVE) Urine Urobilinogen (0-1) mg/dL Ur Leukocyte Esterase (NEGATIVE) Urine WBC (Auto) (0-5) /HPF Urine RBC (Auto) (0-2) /HPF U Epithel Cells (Auto) (FEW) /HPF Urine Bacteria (Auto) (NEGATIVE) /HPF Urine Mucus (Auto) (NEGATIVE) /HPF Urine Culture Reflexed (NO) Urine Glucose (NEGATIVE) mg/dL - Progress Progress: improved Progress Note: Patient reassessed. She is well. Patient asymptomatic. Doppler ultrasound bilateral lower extremity both negative for DVT. Chest x-ray clear. Urinalysis reveals a urinary tract infection. No proteinuria. Renal function appears to be within normal limits. BNP slightly elevated at 540. Case discussed with who recommended 3 days of Lasix 20 mg. Prescription for Lasix was forwarded to patient's pharmacy. Macrobid prescription was also forwarded to patient's pharmacy. Patient updated on findings. Patient states he is ready for discharge. No indication for work-up at this time. Will discharge home. Patient agrees to follow-up with primary care doctor within 48 hours for e valuation. Portions of this note were created with voice recognition technology. There may be grammatical, spelling, punctuation or sound alike errors 12/02/21 17:01 Counseled pt/family regarding: lab results, diagnosis, need for follow-up, rad results - Departure Departure Disposition: Home Clinical Impression: Pedal edema, Urinary tract infection Condition: Stable Critical Care Time: No Referrals: JL DIEHL [Primary Care Provider] - Follow up/PCP as directed Additional Instructions: Discharge/Care Plan MINERVA MAHER was seen on 12/02/21 in the Emergency Room. The patient was counseled regarding Diagnosis,Lab results, Imaging studies, need for follow up and when to return to the Emergency Room. Prescriptions given: Discharge Note I have spoken with the patient and/or caregivers. I have explained the patient's condition, diagnosis and treatment plan based on the information available to me at this time. I have answered the patient's and/or caregiver's questions and addressed any concerns. The patient and/or caregivers have as good understanding of the patient's diagnosis, condition and treatment plan as can be expected at this point. The vital signs have been stable. The patient's condition is stable and appropriate for discharge from the emergency department. The patient will pursue further outpatient evaluation with the primary care physician or other designated or consulting physician as outlined in the discharge instructions. The patient and/or caregivers are agreeable to this plan of care and follow-up instructions have been explained in detail. The patient and/or caregivers have received these instruction. The patient/and or caregivers are aware that any significant change in condition or worsening of symptoms should prompt an immediate return to this or the closest emergency department or call 911. Prescriptions: Furosemide 20 mg [Lasix 20 mg] 20 mg PO DAILY 3 Days #3 tablet Nitrofurantoin Macro 100 mg [Macrobid 100MG Capsule] 100 mg PO BID 7 Days #14 cap
[2021-12-02 14:36] LABS: Hematocrit 27.6 % (35-47); Hemoglobin 9.1 gm/dl (12.0-16.0); Mean Cell Volume 84.1 fl (78-100); Mean Corpuscular Hemoglobin 27.7 pg (26-32); Mean Platelet Volume 8.3 fl (7.5-11.0); Platelet Count 520 K/mm3 (150-450); Red Blood Count 3.28 M/mm3 (4.1-5.4); Red Cell Distribution Width 15.7 % (11.5-14.0); White Blood Count 8.5 K/mm3 (4.0-10.5)
[2021-12-02 14:57] LABS: ALBUMIN 2.9 g/dL (3.5-5.0); ALKALINE PHOSPHATASE 183 U/L (38-126); ANION GAP 6.4 MEQ/L (5-15); BLOOD UREA NITROGEN 5 mg/dL (7-17); CHLORIDE 110 mmol/L (98-107); Calcium 8.4 mg/dL (8.4-10.2); Carbon Dioxide 26 mmol/L (22-30); Creatinine 1 0.49 mg/dL (0.52-1.04); EST GLOMERULAR FILTRATION RATE > 60.0 ML/MIN; Glucose 74 mg/dL (74-106); NT PRO BNP 540 pg/mL (0-450); SGOT/AST 103 U/L (14-36); SGPT/ALT 33 U/L (0-35); SODIUM 139 mmol/L (137-145); Total Protein 5.9 g/dL (6.3-8.2)
--- NOTE | 2021-12-02 15:05 | XRAY ---
Indication: Bilateral edema. Two-dimensional sonogram and color Doppler imaging of the major venous vessels of the left and right leg performed. Comparison: None No thrombus seen in the examined deep venous vessels of the left and right leg including greater saphenous vein. Veins demonstrate normal compressibility. Venous waveforms are normal with and without augmentation. Impression: Left and right legs negative for DVT.
[2021-12-02 15:33] LABS: Appearance CLEAR (CLEAR); Bacteria RARE /HPF (NEGATIVE); Bilirubin NEGATIVE (NEGATIVE); Blood LARGE Ery/ul (0-5); Glucose NEGATIVE (NEGATIVE); Ketones NEGATIVE (NEGATIVE); Leukocyte Esterase TRACE (NEGATIVE); Mucus SLIGHT /HPF (NEGATIVE); Nitrite NEGATIVE (NEGATIVE); Protein,Urine Dip NEGATIVE (Negative); Specific Gravity 1.008 (1.005-1.025); Urobilinogen 2 mg/dL (0-1)
[2021-12-02 16:24] LABS: ANISOCYTOSIS 1+; Eosinophil 6 % (0.00-3.0); Lymphocytes 21 % (24-44); Monocyte 1 % (0.0-12.0); Neutrophils 72 % (36.0-66.0); Platelet Estimate INCREASED (NORMAL); Total Cells Counted 100
[2021-12-02 16:50] VITALS: O2SAT 98
[2021-12-02 17:03] VITALS: BP 165/95; PULSE 52
== END 2021-12-02 17:11 | disposition home or self-care (01) ==
LOC: ED 12:37
DX: O86.20 Urinary tract infection following delivery, unspecified (principal); N39.0 Urinary tract infection, site not specified; O12.05 Gestational edema, complicating the puerperium
CPT/HCPCS: 36000; 36415; 71045; 80053; 81001; 83880; 84484; 85025; 87086; 93005; 93041; 93970; 94760; 99284

== ENCOUNTER 2022-03-26 18:54 | Emergency (ER) | payer OTHER ==
--- NOTE | 2022-03-26 19:22 | ERPHSYRPT ---
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 Pain is 8/10 and throbbing. Nothing makes the pain better or worse. She had migraine headaches when she was only which she denies at the present. Pt denies cough/fever/nausea/vomiting/focal weakness/trauma. Light makes the pain worse. Timing/Duration: other (3 hours) Quality: throbbing Head Pain Location: global Severity of Pain-Max: severe Severity of Pain-Current: severe Recent Head Trauma: no recent headache/trauma Modifying Factors: Improves With: exposure to light Associated Symptoms: dizziness, fatigue, sensitive to light, weakness, No confusion, No facial pain, No fever/chills, No flushing, No light-headedness, No loss of consciousness, No nausea/vomiting, No nasal congestion, No nasal drainage, No neck pain, No numbness in legs/feet, No rash, No sweating, No scotoma, No seizures, No sinus infection, No speech problems, No stiff neck, No trouble walking, No vision changes, No visual disturbance Previous symptoms: different symptoms Allergies/Adverse Reactions: aspartame Allergy (Verified 03/26/22 19:02) Hives latex Adverse Reaction (Verified 03/26/22 19:02) latex condoms make her have swelling and redness of vagina. Home Medications: Sulfamethoxazole/Trimethoprim [Bactrim Ds Tablet] 1 each PO BID 03/26/22 [Histor y] Hx Tetanus, Diphtheria Vaccination/Date Given: Yes Hx Influenza Vaccination/Date Given: Yes Hx Pneumococcal Vaccination/Date Given: No Travel Risk - International Travel Have you traveled outside of the country in past 3 weeks: No - Coronavirus Screening Are you exhibiting any of the following symptoms?: No - Vaccine Status Have you recieved a Covid-19 vaccination: No - Review of Systems Constitutional: No Symptoms Eyes: No Symptoms Ears, Nose, & Throat: No Symptoms Respiratory: No Symptoms Cardiac: No Symptoms Abdominal/Gastrointestinal: No Symptoms Genitourinary Symptoms: No Symptoms Musculoskeletal: No Symptoms Skin: No Symptoms Neurological: No Symptoms, Headache Psychological: No Symptoms Endocrine: No Symptoms Hematologic/Lymphatic: No Symptoms Immunological/Allergic: No Symptoms - Past Medical History Pertinent Past Medical History: Yes Neurological History: Migraines ENT History: No Pertinent History Cardiac History: No Pertinent History Respiratory History: Asthma Endocrine Medical History: No Pertinent History Musculoskeletal History: No Pertinent History GI Medical History: Hemorrhoids, Irritable Bowel Psycho-Social History: No Pertinent History Female Reproductive Disorders: No Pertinent History Other Medical History: SICKLE CELL ANEMIA TRAIT, 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, FACTOR 5 - Past Surgical History Past Surgical History: Yes Neuro Surgical History: No Pertinent History Cardiac: No Pertinent History Respiratory: No Pertinent History Gastrointestinal: No Pertinent History Genitourinary: No Pertinent History Musculoskeletal: No Pertinent History Female Surgical History: Section Other Surgical History: TONSILLECTOMY - Social History Smoking Status: Never smoker Exposure to second hand smoke: No Drug Use: none Patient Lives Alone: No Significant Family History: no pertinent family hx - Female History Hx Last Menstrual Period: 01/2022 Hx Now: No (depo) - Nursing Vital Signs Nursing Vital Signs: Initial Vital Signs Temperature 97.4 F 03/26/22 19:05 Pulse Rate 93 H 03/26/22 19:05 Blood Pressure 124/82 03/26/22 19:05 O2 Sat by Pulse Oximetry 97 03/26/22 19:05 Pain Scale Pain Intensity 4 WNL - Physical Exam General Appearance: no apparent distress Eye Exam: PERRL/EOMI, eyes nml inspection Ears, Nose, Throat Exam: normal ENT inspection, TMs normal, pharynx normal, moist mucous membranes Neck Exam: normal inspection, non-tender, supple, full range of motion, No meningismus, No mass, No Brudzinski, No Kernig's Respiratory Exam: normal breath sounds, lungs clear, airway intact Cardiovascular Exam: regular rate/rhythm, normal heart sounds, normal peripheral pulses, capillary refill <2 sec, No murmur Gastrointestinal/Abdominal Exam: soft, normal bowel sounds, No tenderness Back Exam: normal inspection, normal range of motion Extremity Exam: normal inspection Mental Status Exam: alert, oriented x 3, cooperative pca Exam: normal hearing, normal speech, PERRL Coordination/Gait Exam: normal finger to nose Motor/Sensory Exam: no motor deficit, no sensory deficit, no pronator drift, negative Babinski's sign, No pronator drift (R), No pronator drift (L), No sensory deficit, No weak motor strength RUE, No weak motor strength LUE, No weak motor strength RLE, No weak motor strength LLE DTR Exam: bicep (R): 2+, bicep (L): 2+ Skin Exam: normal color, warm, dry, No rash Lymphatic Exam: No adenopathy SpO2 Interpretation: normal SpO2: 97 O2 Delivery: Room Air - Course Nursing assessment & vital signs reviewed: Yes - CT Exams Head CT Interpretation: Tele-radiologist Report (CT head neg) Ordered Tests: Active Orders 24 hr Category Date Time Status HEAD WITHOUT CONTRAST [CT] Stat Exams 03/26/22 20:23 Taken CBC W DIFF Stat Lab 03/26/22 20:30 Completed CMP Stat Lab 03/26/22 20:30 Completed Lactic Acid Stat Lab 03/26/22 20:40 Completed Medication Summary Discontinued Medications Generic Name Dose Route Start Last Admin Trade Name Freq PRN Reason Stop Dose Admin Ketorolac Tromethamine 30 mg 03/26/22 21:23 03/26/22 21:31 Ketorolac Tromethamine 30 Mg/Ml Inj IM 03/26/22 21:24 30 mg STAT ONE Administration Ketorolac Tromethamine Confirm 03/26/22 21:29 Ketorolac Tromethamine 30 Mg/Ml Inj Administered 03/26/22 21:30 Dose 30 mg .ROUTE .STK-MED ONE Lab/Rad Data: Laboratory Result Diagrams 03/26/22 20:30 03/26/22 20:30 Laboratory Results 03/26/22 03/26/22 03/26/22 Range/Units 20:40 20:30 20:30 WBC 8.7 (4.0-10.5) x10^3/uL RBC 4.43 (4.1-5.4) x10^6/uL Hgb 11.1 L (12.0-16.0) g/dL Hct 35.0 (35-47) % MCV 79.0 (78-100) fL MCH 25.1 L (26-32) pg MCHC 31.7 L (32-36) g/dL RDW 16.1 H (11.5-14.0) % Plt Count 419 (150-450) x10^3/uL MPV 8.8 (7.5-11.0) fL Gran % 63.2 (36.0-66.0) % Immature Gran % (Auto) 0.3 (0.00-0.4) % Nucleat RBC Rel Count 0.0 (0.00-0.1) % Eos # (Auto) 0.15 (0-0.5) x10^3/uL Immature Gran # (Auto) 0.03 (0.00-0.03) x10^3u/L Absolute Lymphs (auto) 2.61 (1.0-4.6) x10^3/uL Absolute Monos (auto) 0.41 (0.0-1.3) x10^3/uL Absolute Nucleated RBC 0.00 (0.00-0.01) x10^3u/L Lymphocytes % 30.0 (24.0-44.0) % Monocytes % 4.7 (0.0-12.0) % Eosinophils % 1.7 (0.00-5.0) % Basophils % 0.1 (0.0-0.4) % Absolute Granulocytes 5.50 (1.4-6.9) x10^3/uL Basophils # 0.01 (0-0.4) x10^3/uL Sodium 138 (137-145) mmol/L Potassium 4.4 (3.5-5.1) mmol/L Chloride 105 (98-107) mmol/L Carbon Dioxide 26 (22-30) mmol/L Anion Gap 11.2 (5-15) MEQ/L BUN 14 (7-17) mg/dL Creatinine 0.85 (0.52-1.04) mg/dL Estimated GFR > 60.0 ML/MIN Glucose 88 (74-106) mg/dL Lactic Acid 0.6 (0.4-2.0) Calcium 8.9 (8.4-10.2) mg/dL Total Bilirubin 0.40 (0.2-1.3) mg/dL AST 19 (14-36) U/L ALT 11 (0-35) U/L Alkaline Phosphatase 94 (38-126) U/L Serum Total Protein 7.6 (6.3-8.2) g/dL Albumin 3.9 (3.5-5.0) g/dL Influenza Type A Ag (NEGATIVE) Influenza Type B Ag (NEGATIVE) RSV (PCR) (Negative) SARS-CoV-2 (PCR) (NEGATIVE) 03/26/22 Range/Units 19:45 WBC (4.0-10.5) x10^3/uL RBC (4.1-5.4) x10^6/uL Hgb (12.0-16.0) g/dL Hct (35-47) % MCV (78-100) fL MCH (26-32) pg MCHC (32-36) g/dL RDW (11.5-14.0) % Plt Count (150-450) x10^3/uL MPV (7.5-11.0) fL Gran % (36.0-66.0) % Immature Gran % (Auto) (0.00-0.4) % Nucleat RBC Rel Count (0.00-0.1) % Eos # (Auto) (0-0.5) x10^3/uL Immature Gran # (Auto) (0.00-0.03) x10^3u/L Absolute Lymphs (auto) (1.0-4.6) x10^3/uL Absolute Monos (auto) (0.0-1.3) x10^3/uL Absolute Nucleated RBC (0.00-0.01) x10^3u/L Lymphocytes % (24.0-44.0) % Monocytes % (0.0-12.0) % Eosinophils % (0.00-5.0) % Basophils % (0.0-0.4) % Absolute Granulocytes (1.4-6.9) x10^3/uL Basophils # (0-0.4) x10^3/uL Sodium (137-145) mmol/L Potassium (3.5-5.1) mmol/L Chloride (98-107) mmol/L Carbon Dioxide (22-30) mmol/L Anion Gap (5-15) MEQ/L BUN (7-17) mg/dL Creatinine (0.52-1.04) mg/dL Estimated GFR ML/MIN Glucose (74-106) mg/dL Lactic Acid (0.4-2.0) Calcium (8.4-10.2) mg/dL Total Bilirubin (0.2-1.3) mg/dL AST (14-36) U/L ALT (0-35) U/L Alkaline Phosphatase (38-126) U/L Serum Total Protein (6.3-8.2) g/dL Albumin (3.5-5.0) g/dL Influenza Type A Ag NEGATIVE (NEGATIVE) Influenza Type B Ag NEGATIVE (NEGATIVE) RSV (PCR) NEGATIVE (Negative) SARS-CoV-2 (PCR) NEGATIVE (NEGATIVE) - Progress Progress Note: 03/26/22 21:24 30mg IM Toradol Counseled pt/family regarding: lab results, diagnosis, need for follow-up, rad results - Departure Departure Disposition: Home Clinical Impression: Headache Condition: Stable Critical Care Time: No Referrals: JL DIEHL [Primary Care Provider] - Follow up/PCP as directed Instructions: Headache, Adult (DC) Additional Instructions: Return to ER for increasing pain or temperature greater than 100.5. Follow up with your family MD Forms: Work/School Release Form
[2022-03-26 20:08] LABS: INFLUENZA A NEGATIVE (NEGATIVE); INFLUENZA B NEGATIVE (NEGATIVE); RESPIRATORY SYNCTIAL VIRUS NEGATIVE (Negative); SARS-CoV-2 Xpert Express NEGATIVE (NEGATIVE)
[2022-03-26 20:33] LABS: Basophil (Absolute #) 0.01 x10^3/uL (0-0.4); Eosinophil % 1.7 % (0.00-5.0); Eosinophil (Absolute #) 0.15 x10^3/uL (0-0.5); Hemoglobin 11.1 g/dL (12.0-16.0); Lymphocyte (Absolute #) 2.61 x10^3/uL (1.0-4.6); Mean Corpuscular Hemoglobin 25.1 pg (26-32); Mean Corpuscular Hgb Concent. 31.7 g/dL (32-36); Mean Platelet Volume 8.8 fL (7.5-11.0); Monocyte (Absolute #) 0.41 x10^3/uL (0.0-1.3); Monocytes % 4.7 % (0.0-12.0); Neutrophil % 63.2 % (36.0-66.0); Platelet Count 419 x10^3/uL (150-450); Red Blood Count 4.43 x10^6/uL (4.1-5.4); Red Cell Distribution Width 16.1 % (11.5-14.0); White Blood Count 8.7 x10^3/uL (4.0-10.5)
[2022-03-26 21:00] LABS: ALBUMIN 3.9 g/dL (3.5-5.0); ALKALINE PHOSPHATASE 94 U/L (38-126); ANION GAP 11.2 MEQ/L (5-15); BLOOD UREA NITROGEN 14 mg/dL (7-17); CHLORIDE 105 mmol/L (98-107); Calcium 8.9 mg/dL (8.4-10.2); Carbon Dioxide 26 mmol/L (22-30); Creatinine 1 0.85 mg/dL (0.52-1.04); EST GLOMERULAR FILTRATION RATE > 60.0 ML/MIN; Glucose 88 mg/dL (74-106); Potassium 4.4 mmol/L (3.5-5.1); SGOT/AST 19 U/L (14-36); SGPT/ALT 11 U/L (0-35); SODIUM 138 mmol/L (137-145); Total Protein 7.6 g/dL (6.3-8.2)
[2022-03-26 21:15] VITALS: O2SAT 97
[2022-03-26] MEDS ORDERED: TORAdol 30 mg Injection IM ONE (21:23)
[2022-03-26] MEDS ORDERED: TORAdol 30 mg Injection ONE (21:29)
[2022-03-26 22:00] VITALS: BP 114/74; PULSE 80
--- NOTE | 2022-03-26 22:29 | XRAY ---
Indication: Headache, dizziness, and weakness. Multiple contiguous axial images obtained through the head without contrast. Comparison: January 09, 2014 Normal appearing brain parenchyma, ventricles, and bony calvarium. Again 2.9 cm left maxillary sinus polyp/retention cyst. Remaining visualized paranasal sinuses and mastoid air cells are clear. Impression: Again left maxillary sinus polyp/retention cyst. Remaining CT head without contrast exam is again normal. Comment: Preliminary interpretation made by [facility]. No critical discrepancy.
== END 2022-03-26 21:50 | disposition home or self-care (01) ==
LOC: ED 18:54
DX: R51.9 Headache, unspecified (principal); R42 Dizziness and giddiness; R53.83 Other fatigue; Z28.310 Unvaccinated for COVID-19
CPT/HCPCS: 0241U; 36415; 70450; 80053; 83605; 85025; 96372; 99283; J1885

== ENCOUNTER 2023-02-08 06:34 | Day surgery (SDC) | payer OTHER ==
[2023-02-08] MEDS ORDERED: Transderm Scop 1.5MG Patch TOP PRN (06:44)
[2023-02-08] MEDS ORDERED: Pepcid 20 MG VIAL IV ONE ×2 (06:44→07:04)
[2023-02-08] MEDS ORDERED: Reglan 10 MG/2 ML IV ONE (06:44)
[2023-02-08] MEDS ORDERED: Lactated Ringers 1,000 ML IV SCH (07:00)
[2023-02-08] MEDS ORDERED: CEFAZOLIN 2 GM-D5W BAG** 2 GM/50 ML ML IV SCH (07:00)
[2023-02-08] MEDS ORDERED: Transderm Scop 1.5MG Patch ONE (07:04)
[2023-02-08] MEDS ORDERED: CEFAZOLIN 2 GM-D5W BAG** 2 GM/50 ML ML IV ONE (07:04)
[2023-02-08] MEDS ORDERED: Reglan 10 MG/2 ML ONE (07:04)
[2023-02-08] MEDS ORDERED: Lactated Ringers 1,000 ML IV ONE (07:04)
[2023-02-08 07:21] LABS: HCG URINE TEST NEGATIVE (NEGATIVE)
[2023-02-08] MEDS ORDERED: Sodium Chloride 0.9% 1000 ML 1,000 ML ONE (08:07)
[2023-02-08] MEDS ORDERED: Decadron 4 MG INJ ONE (08:41)
[2023-02-08] MEDS ORDERED: Zofran 4 MG/2 ML VIAL ONE (08:41)
[2023-02-08] MEDS ORDERED: Versed 2 MG/2 ML Injection ONE (08:41)
[2023-02-08] MEDS ORDERED: SUBLIMAZE 100 MCG/2 ML ONE (08:41)
[2023-02-08] MEDS ORDERED: Xylocaine-Mpf 2% 5 Ml Vial ONE (08:41)
[2023-02-08] MEDS ORDERED: DIPRIVAN 200 MG/20 ML IV ONE (08:42)
[2023-02-08] MEDS ORDERED: Quelicin Fliptop 200 MG/10 ML ONE (08:42)
[2023-02-08] MEDS ORDERED: Pre-Attached Lta Kit TP ONE (08:43)
[2023-02-08] MEDS ORDERED: DEXMEDETOMIDINE 80 MCG/20ML-NS IV ONE (08:48)
[2023-02-08 10:21] VITALS: BP 121/96; PULSE 87; O2SAT 96
--- NOTE | 2023-02-09 08:31 | OP ---
SURGERY DATE/TIME: 02/08/2023 0842 PREOPERATIVE DIAGNOSIS: Menorrhagia. POSTOPERATIVE DIAGNOSIS: Menorrhagia. PROCEDURE: Hysteroscopy D&C with NovaSure ablation. SURGEON: Vickey Rinaldi D.O. AUTO CLUTCH REBUILDER: Fatuma Mckeon surgical processor. ANESTHESIA: General. QUANTITATIVE ESTIMATED BLOOD LOSS: Minimal. COMPLICATIONS: None. INDICATIONS: The risks, benefits, indications and alternatives of the procedure were reviewed with the patient prior to the procedure. The patient understood the risk of infection, bleeding, bowel injury, bladder injury, ureteral injury, uterine perforation, pelvic infection and thromboembolic disorder associated with the surgery and desires to have this surgery as a possible means to alleviate her current medical condition. DESCRIPTION OF PROCEDURE AND FINDINGS: At this point the patient is taken to the operating room, given general sedation, placed in dorsal lithotomy position, prepped and draped in the usual sterile fashion. A weighted speculum is then placed in the patient's vagina and the anterior lip of the cervix was grasped with a single tooth tenaculum. Endocervical dilators were advanced through the endocervical canal as a means to dilate the cervix and at this point a 5 mm hysteroscope was then placed towards the endocervical region towards the fundal region where visualization appeared to be within normal limits with no gross abnormalities that were noted. The hysteroscope was then removed and the curette was then placed into the fundus of the uterus and curettage was performed in all quadrants of the uterus retrieving a mild to moderate amount of tissue. From this point, the curette was then removed and the NovaSure was then placed towards the fundal region of the uterus and retracted approximately 1 cm and was then engaged with a length of 6.5 cm and width of 3.7 cm. After complete engagement, the instrument was turned on for approximately 53 seconds. After complete ablation, the instrument was disengaged and removed from the uterine cavity without complication. All instruments were removed from the patient's pelvic region. The patient was then taken out of dorsal lithotomy position and was then taken out of anesthesia and was then taken to the recovery room in stable condition. All instruments and laps were accounted for x2.
== END 2023-02-08 10:35 | disposition home or self-care (01) ==
LOC: SDC 06:34
PROVIDERS: ATTEND Obstetrics & Gynecology
DX: N92.0 Excessive and frequent menstruation with regular cycle (principal)
CPT/HCPCS: 81025; J0330; J0690; J1100; J2250; J2405; J2704; J3010; A9270-GY

== ENCOUNTER 2023-04-14 22:12 | Emergency (ER) | payer OTHER ==
[2023-04-14 22:29] VITALS: RESP 18; O2SAT 97
[2023-04-14] MEDS ORDERED: MOTRIN 600 MG PO ONE (22:36)
[2023-04-14] MEDS ORDERED: MOTRIN 600 MG ONE (22:38)
[2023-04-14 23:21] LABS: INFLUENZA A NEGATIVE (NEGATIVE); INFLUENZA B NEGATIVE (NEGATIVE); RESPIRATORY SYNCTIAL VIRUS NEGATIVE (NEGATIVE); SARS-CoV-2 Xpert Express NEGATIVE (NEGATIVE)
[2023-04-14] MEDS ORDERED: Augmentin 875-125 Tablet PO ONE (23:25)
[2023-04-14 23:28] VITALS: BP 126/82; PULSE 96
--- NOTE | 2023-04-14 23:33 | ERPHSYRPT ---
- History of Present Illness Time Seen by Provider: 04/14/23 22:21 Source: patient Exam Limitations: no limitations Patient Subjective Stated Complaint: sorethroat, headache, fever, nasal congestion, body aches since 1900 Triage Nursing Assessment: pt ambulatory to bed by self, pt alert and oriented x3, skin pink, hot to touch, and diaphoretic, tonsils removed, tongue dry, febrile, lungs sounds clear Physician History: 27 years old presented in the ER with sore throat chills, body aches started around 7 PM. Patient has a fever of 102 on presentation in the ER. Denies any cough or difficulty breathing. Denies any known sick contact. She has taken [id number] medication with no significant relief. Timing/Duration: abrupt onset, hours (5) Severity: moderate ENT Location: throat Prearrival Treatment: over the counter meds Associated Symptoms: sore throat Allergies/Adverse Reactions: aspartame Allergy (Verified 04/14/23 22:23) Hives latex Adverse Reaction (Verified 04/14/23 22:23) latex condoms make her have swelling and redness of vagina. Hx Tetanus, Diphtheria Vaccination/Date Given: Yes Hx Influenza Vaccination/Date Given: Yes Hx Pneumococcal Vaccination/Date Given: No Immunizations Up to Date: Yes Travel Risk - International Travel Have you traveled outside of the country in past 3 weeks: No - Coronavirus Screening Are you exhibiting any of the following symptoms?: No Close contact with a COVID-19 positive Pt in past 14-21 Days: No - Vaccine Status Have you recieved a Covid-19 vaccination: No - Review of Systems Constitutional: Fever, Chills Eyes: No Symptoms Ears, Nose, & Throat: Throat Pain, Throat Swelling Respiratory: No Symptoms Cardiac: No Symptoms Abdominal/Gastrointestinal: No Symptoms Musculoskeletal: No Symptoms Skin: No Symptoms Neurological: No Symptoms Endocrine: No Symptoms Hematologic/Lymphatic: No Symptoms - Past Medical History Pertinent Past Medical History: Yes Neurological History: Migraines ENT History: No Pertinent History Cardiac History: No Pertinent History Respiratory History: Asthma Endocrine Medical History: No Pertinent History Musculoskeletal History: No Pertinent History GI Medical History: Hemorrhoids, Irritable Bowel Psycho-Social History: No Pertinent History Female Reproductive Disorders: No Pertinent History Other Medical History: SICKLE CELL ANEMIA TRAIT, 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, FACTOR 5 - Past Surgical History Past Surgical History: Yes Neuro Surgical History: No Pertinent History Cardiac: No Pertinent History Respiratory: No Pertinent History Gastrointestinal: No Pertinent History Genitourinary: No Pertinent History Musculoskeletal: No Pertinent History Female Surgical History: Dilation & Curettage, Section, Tubal Ligation Other Surgical History: TONSILLECTOMY - Social History Smoking Status: Never smoker Exposure to second hand smoke: No Drug Use: none Patient Lives Alone: No Significant Family History: no pertinent family hx - Female History Hx Last Menstrual Period: ablation Hx Now: No - Nursing Vital Signs Nursing Vital Signs: Initial Vital Signs Temperature 102.8 F 04/14/23 22:27 Pulse Rate 109 H 04/14/23 22:27 Respiratory Rate 18 04/14/23 22:27 Blood Pressure 135/82 04/14/23 22:27 O2 Sat by Pulse Oximetry 97 04/14/23 22:27 Pain Scale Pain Intensity 4 - Physical Exam General Appearance: no apparent distress, alert Eye Exam: bilateral eye: normal inspection, PERRL Ear Exam: bilateral ear: auricle normal Nasal Exam: normal inspection Throat Exam: moist mucus membranes, pharynx swelling, tonsillar swelling Neck Exam: normal inspection, non-tender, supple, full range of motion Cardiovascular/Respiratory Exam: normal breath sounds, regular rate/rhythm Neurologic Exam: alert, oriented x 3, cooperative, ripsaw grader II-XII nml as tested Skin Exam: normal color SpO2 Interpretation: normal SpO2: 97 O2 Delivery: Room Air Ordered Tests: Medication Summary Discontinued Medications Generic Name Dose Route Start Last Admin Trade Name Freq PRN Reason Stop Dose Admin Amoxicillin/Clavulanate Potassium 875 mg 04/14/23 23:25 04/14/23 23:35 Amox Tr/Potassium Clavulanate 875 Mg Tablet PO 04/14/23 23:26 875 mg STAT ONE Administration Amoxicillin/Clavulanate Potassium Confirm 04/14/23 23:34 Amox Tr/Potassium Clavulanate 875 Mg Tablet Administered 04/14/23 23:35 Dose 875 mg .ROUTE .STK-MED ONE Ibuprofen 600 mg 04/14/23 22:36 04/14/23 22:39 Ibuprofen 600 Mg Tablet PO 04/14/23 22:37 600 mg STAT ONE Administration Ibuprofen Confirm 04/14/23 22:38 Ibuprofen 600 Mg Tablet Administered 04/14/23 22:39 Dose 600 mg .ROUTE .STK-MED ONE Lab/Rad Data: Laboratory Results 04/14/23 04/14/23 Range/Units 22:40 22:40 Influenza Type A Ag NEGATIVE (NEGATIVE) Influenza Type B Ag NEGATIVE (NEGATIVE) RSV (PCR) NEGATIVE (NEGATIVE) SARS-CoV-2 (PCR) NEGATIVE (NEGATIVE) Group A Strep Antibody DETECTED (NEGATIVE) - Progress Progress: improved, re-examined Progress Note: 04/14/23 23:51 27 years old is evaluated in the ER for sore throat, chills body ache and fever with a Tmax of 102 prior to arrival in the ER. She is given symptomatic treatment, on reevaluation temperature is improved. She has a positive strep throat. She is started on Augmentin. Recommended Tylenol/ibuprofen and outpatient follow-up. Counseled pt/family regarding: lab results, diagnosis, need for follow-up Medical Desision Making - Diagnostic Testing Diagnostic test were ordered, analyzed, and reviewed by me: Yes - Risk of complications The pt has a mod risk of morbidity or mortality based on: Need for prescription drug management - Departure Departure Disposition: Home Clinical Impression: Acute streptococcal pharyngitis Condition: Stable Critical Care Time: No Referrals: JL DIEHL [Primary Care Provider] - Follow up with PCP 2 days Instructions: Strep Throat (DC) Additional Instructions: Take Tylenol/ibuprofen as needed for pain/fever. Follow-up with primary care for reevaluation. Return to ER for any worsening. Prescriptions: Ibuprofen 600 mg PO Q6HPRN PRN 10 Days #20 tablet PRN Reason: Pain Amox Tr/Potass Clav. 875 mg [Augmentin 875-125 Tablet] 875 mg PO BID 10 Days #20 tablet
[2023-04-14] MEDS ORDERED: Augmentin 875-125 Tablet ONE (23:34)
[2023-04-14 23:43] VITALS: TEMP 98.4
== END 2023-04-15 00:03 | disposition home or self-care (01) ==
LOC: ED 22:12
DX: J02.0 Streptococcal pharyngitis (principal); M79.10 Myalgia, unspecified site; R50.9 Fever, unspecified; Z79.899 Other long term (current) drug therapy
CPT/HCPCS: 0241U; 87651; 99283; A9270-GY

== ENCOUNTER 2023-07-13 14:05 | Emergency (ER) | payer OTHER ==
--- NOTE | 2023-07-13 14:14 | ERPHSYRPT ---
- History of Present Illness Time Seen by Provider: 07/13/23 14:14 Historian: patient Exam Limitations: no limitations Physician History: This is a morbidly obese 28-year-old white female who presents with nausea vomiting and diarrhea that have been intermittent for 2 days. Symptoms began on Tuesday prior to this evaluation then seemed to subside yesterday but then came back significantly last night and today. She is unable to hold any liquids down and she is having watery stools. She has never had this before. She has no known exposures to individuals similar symptoms or with flu diagnoses. Patient has a history of asthma, irritable bowel syndrome and migraine headaches. She denies chest pain and she denies shortness of breath. She denies cough. She has had no vaginal bleeding. She does have diffuse abdominal cramping pain. Timing/Duration: day(s) (2) Quality: cramping Abdominal Pain Onset Location: generalized abdomen Pain Radiation: no radiation Severity of Pain-Max: mild Severity of Pain-Current: mild Modifying Factors: Improves With: vomiting Associated Symptoms: diarrhea, loss of appetite, nausea, vomiting Allergies/Adverse Reactions: aspartame Allergy (Verified 04/14/23 22:23) Hives latex Adverse Reaction (Verified 04/14/23 22:23) latex condoms make her have swelling and redness of vagina. Hx Tetanus, Diphtheria Vaccination/Date Given: Yes Hx Influenza Vaccination/Date Given: Yes Hx Pneumococcal Vaccination/Date Given: No Travel Risk - International Travel Have you traveled outside of the country in past 3 weeks: No - Coronavirus Screening Are you exhibiting any of the following symptoms?: Yes Symptoms: Vomiting/Diarrhea, Headaches/Body Aches/Fatigue - Vaccine Status Have you recieved a Covid-19 vaccination: No - Review of Systems Constitutional: Weakness Eyes: No Symptoms Ears, Nose, & Throat: No Symptoms Respiratory: No Symptoms Cardiac: No Symptoms Abdominal/Gastrointestinal: Abdominal Pain, Nausea, Vomiting, Diarrhea, Appetite Changes, No Constipation Genitourinary Symptoms: No Symptoms Musculoskeletal: Arthralgias, Myalgias Skin: No Symptoms Neurological: No Symptoms Psychological: No Symptoms Endocrine: No Symptoms Hematologic/Lymphatic: No Symptoms Immunological/Allergic: No Symptoms All Other Systems: Reviewed and Negative - Past Medical History Pertinent Past Medical History: Yes Neurological History: Migraines ENT History: No Pertinent History Cardiac History: No Pertinent History Respiratory History: Asthma Endocrine Medical History: No Pertinent History Musculoskeletal History: No Pertinent History GI Medical History: Hemorrhoids, Irritable Bowel Psycho-Social History: No Pertinent History Female Reproductive Disorders: No Pertinent History Other Medical History: SICKLE CELL ANEMIA TRAIT, 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, FACTOR 5 - Past Surgical History Past Surgical History: Yes Neuro Surgical History: No Pertinent History Cardiac: No Pertinent History Respiratory: No Pertinent History Gastrointestinal: No Pertinent History Genitourinary: No Pertinent History Musculoskeletal: No Pertinent History Female Surgical History: Dilation & Curettage, Section, Tubal Ligation Other Surgical History: TONSILLECTOMY - Social History Smoking Status: Never smoker Exposure to second hand smoke: No Drug Use: none Patient Lives Alone: No Significant Family History: no pertinent family hx - Nursing Vital Signs Nursing Vital Signs: Initial Vital Signs Temperature 97.2 F 07/13/23 14:14 Pulse Rate 73 07/13/23 14:14 Respiratory Rate 20 07/13/23 14:14 Blood Pressure 125/86 07/13/23 14:14 O2 Sat by Pulse Oximetry 98 07/13/23 14:14 Pain Scale Pain Intensity 0 - Physical Exam General Appearance: no apparent distress, alert, anxiety Eye Exam: PERRL/EOMI, eyes nml inspection Ears, Nose, Throat Exam: normal ENT inspection, moist mucous membranes Neck Exam: normal inspection, non-tender, supple, full range of motion Respiratory Exam: normal breath sounds, lungs clear, airway intact, No chest te nderness, No respiratory distress Cardiovascular Exam: regular rate/rhythm, normal heart sounds, normal peripheral pulses Gastrointestinal/Abdomen Exam: soft, normal bowel sounds, tenderness (Mild diffuse), guarding (Mild diffuse), No rebound Pelvic Exam: not done Rectal Exam: not done Back Exam: normal inspection, normal range of motion, No CVA tenderness, No vertebral tenderness Extremity Exam: normal inspection, normal range of motion Neurologic Exam: alert, oriented x 3, cooperative, zookeeper II-XII nml as tested, normal mood/affect, nml cerebellar function, nml station & gait, sensation nml Skin Exam: normal color, warm, dry Lymphatic Exam: No adenopathy SpO2 Interpretation: normal O2 Delivery: Room Air - Course Nursing assessment & vital signs reviewed: Yes Ordered Tests: Active Orders 24 hr Category Date Time Status IV Insertion STAT Care 07/13/23 14:37 Active ABDOMEN AND PELVIS W/0 CONTRAS [CT] Stat Exams 07/13/23 14:38 Completed AMYLASE Stat Lab 07/13/23 15:00 Completed CBC W DIFF Stat Lab 07/13/23 15:00 Completed CMP Stat Lab 07/13/23 15:00 Completed CULTURE,URINE Stat Lab 07/13/23 15:12 Received LIPASE Stat Lab 07/13/23 15:00 Completed Lactic Acid Stat Lab 07/13/23 15:45 Completed MONO SCREEN Stat Lab 07/13/23 15:00 Completed UA W/RFX UR CULTURE Stat Lab 07/13/23 15:12 Completed Medication Summary Generic Name Dose Route Start Last Admin Trade Name Freq PRN Reason Stop Dose Admin Sodium Chloride 1,000 mls @ 999 mls/hr 07/13/23 16:12 07/13/23 16:23 Sodium Chloride 0.9% 1000 Ml IV 07/13/23 17:12 999 mls/hr .Q1H1M STA Administration Discontinued Medications Generic Name Dose Route Start Last Admin Trade Name Freq PRN Reason Stop Dose Admin Sodium Chloride 1,000 mls @ 999 mls/hr 07/13/23 14:37 07/13/23 16:34 Sodium Chloride 0.9% 1000 Ml IV 07/13/23 15:37 Infused .Q1H1M STA Infusion Sodium Chloride Confirm 07/13/23 15:10 Sodium Chloride 0.9% 1000 Ml Administered 07/13/23 15:11 Dose 1,000 mls @ ud .ROUTE .STK-MED ONE Ceftriaxone Sodium/Dextrose 1 g in 50 mls @ 100 mls/hr 07/13/23 16:12 07/13/23 16:23 Rocephin 1 Gm-D5w 50 Ml Bag IV 07/13/23 16:41 100 mls/hr STAT STA 100 mls/hr Administration Sodium Chloride Confirm 07/13/23 16:22 Sodium Chloride 0.9% 1000 Ml Administered 07/13/23 16:23 Dose 1,000 mls @ ud .ROUTE .STK-MED ONE Ceftriaxone Sodium/Dextrose Confirm 07/13/23 16:22 Rocephin 1 Gm-D5w 50 Ml Bag Administered 07/13/23 16:23 Dose 1 g in 50 mls @ ud IV .STK-MED ONE Ondansetron HCl 4 mg 07/13/23 14:37 07/13/23 15:11 Ondansetron Hcl 4 Mg/2 Ml Vial IV 07/13/23 14:38 4 mg STAT ONE Administration Ondansetron HCl Confirm 07/13/23 15:10 Ondansetron Hcl 4 Mg/2 Ml Vial Administered 07/13/23 15:11 Dose 4 mg .ROUTE .STK-MED ONE Pantoprazole Sodium 40 mg 07/13/23 14:37 07/13/23 15:12 Pantoprazole 40 Mg Vial IV 07/13/23 14:38 40 mg STAT ONE Administration Pantoprazole Sodium Confirm 07/13/23 15:10 Pantoprazole 40 Mg Vial Administered 07/13/23 15:11 Dose 40 mg IV .STK-MED ONE Lab/Rad Data: Laboratory Result Diagrams 07/13/23 15:00 07/13/23 15:00 Laboratory Results 07/13/23 07/13/23 07/13/23 Range/Units 15:45 15:12 15:00 WBC (4.0-10.5) x10^3/uL RBC (4.1-5.4) x10^6/uL Hgb (12.0-16.0) g/dL Hct (35-47) % MCV (78-100) fL MCH (26-32) pg MCHC (32-36) g/dL RDW (11.5-14.0) % Plt Count (150-450) x10^3/uL MPV (7.5-11.0) fL Gran % (36.0-66.0) % Immature Gran % (Auto) (0.00-0.4) % Nucleat RBC Rel Count (0.00-0.1) % Eos # (Auto) (0-0.5) x10^3/uL Immature Gran # (Auto) (0.00-0.03) x10^3u/L Absolute Lymphs (auto) (1.0-4.6) x10^3/uL Absolute Monos (auto) (0.0-1.3) x10^3/uL Absolute Nucleated RBC (0.00-0.01) x10^3u/L Lymphocytes % (24.0-44.0) % Monocytes % (0.0-12.0) % Eosinophils % (0.00-5.0) % Basophils % (0.0-0.4) % Absolute Granulocytes (1.4-6.9) x10^3/uL Basophils # (0-0.4) x10^3/uL Sodium (137-145) mmol/L Potassium (3.5-5.1) mmol/L Chloride (98-107) mmol/L Carbon Dioxide (22-30) mmol/L Anion Gap (5-15) MEQ/L BUN (7-17) mg/dL Creatinine (0.52-1.04) mg/dL Estimated GFR ML/MIN Glucose (74-106) mg/dL Lactic Acid 1.4 (0.4-2.0) Calcium (8.4-10.2) mg/dL Total Bilirubin (0.2-1.3) mg/dL AST (14-36) U/L ALT (0-35) U/L Alkaline Phosphatase (38-126) U/L Serum Total Protein (6.3-8.2) g/dL Albumin (3.5-5.0) g/dL Amylase (30-110) U/L Lipase (23-300) U/L Urine Color Yellow (Yellow) Urine Appearance Cloudy A (Clear) Urine pH 5.5 (4.6-8.0) Ur Specific [place] 1.020 (1.005-1.030) Urine Protein Negative (Negative) Urine Glucose (UA) Negative (Negative) mg/dL Urine Ketones Negative (Negative) Urine Blood Small A (Negative) Urine Nitrite Negative (Negative) Urine Bilirubin Negative (Negative) Urine Urobilinogen 0.2 (0.2) mg/dL Ur Leukocyte Esterase Trace A (Negative) U Hyaline Cast (Auto) NONE SEEN (0-2) /LPF Urine Microscopic RBC 0-2 (0-5) /HPF Urine Microscopic WBC 3-5 (0-5) /HPF Ur Epithelial Cells Moderate A (None Seen) /HPF Urine Bacteria Rare A (None Seen) /HPF Urine Culture Reflexed YES (NO) Monoscreen (NEGATIVE) Influenza Type A Ag NEGATIVE (NEGATIVE) Influenza Type B Ag NEGATIVE (NEGATIVE) RSV (PCR) NEGATIVE (NEGATIVE) SARS-CoV-2 (PCR) NEGATIVE (NEGATIVE) 07/13/23 07/13/23 07/13/23 Range/Units 15:00 15:00 15:00 WBC 8.1 (4.0-10.5) x10^3/uL RBC 4.64 (4.1-5.4) x10^6/uL Hgb 12.8 (12.0-16.0) g/dL Hct 39.0 (35-47) % MCV 84.1 (78-100) fL MCH 27.6 (26-32) pg MCHC 32.8 (32-36) g/dL RDW 14.5 H (11.5-14.0) % Plt Count 388 (150-450) x10^3/uL MPV 8.9 (7.5-11.0) fL Gran % 70.5 H (36.0-66.0) % Immature Gran % (Auto) 0.4 (0.00-0.4) % Nucleat RBC Rel Count 0.0 (0.00-0.1) % Eos # (Auto) 0.20 (0-0.5) x10^3/uL Immature Gran # (Auto) 0.03 (0.00-0.03) x10^3u/L Absolute Lymphs (auto) 1.59 (1.0-4.6) x10^3/uL Absolute Monos (auto) 0.54 (0.0-1.3) x10^3/uL Absolute Nucleated RBC 0.00 (0.00-0.01) x10^3u/L Lymphocytes % 19.7 L (24.0-44.0) % Monocytes % 6.7 (0.0-12.0) % Eosinophils % 2.5 (0.00-5.0) % Basophils % 0.2 (0.0-0.4) % Absolute Granulocytes 5.71 (1.4-6.9) x10^3/uL Basophils # 0.02 (0-0.4) x10^3/uL Sodium 139 (137-145) mmol/L Potassium 4.3 (3.5-5.1) mmol/L Chloride 104 (98-107) mmol/L Carbon Dioxide 27 (22-30) mmol/L Anion Gap 11.5 (5-15) MEQ/L BUN 10 (7-17) mg/dL Creatinine 0.70 (0.52-1.04) mg/dL Estimated GFR > 60.0 ML/MIN Glucose 97 (74-106) mg/dL Lactic Acid (0.4-2.0) Calcium 8.6 (8.4-10.2) mg/dL Total Bilirubin 0.50 (0.2-1.3) mg/dL AST 22 (14-36) U/L ALT 17 (0-35) U/L Alkaline Phosphatase 124 (38-126) U/L Serum Total Protein 7.7 (6.3-8.2) g/dL Albumin 4.1 (3.5-5.0) g/dL Amylase 66 (30-110) U/L Lipase 38 (23-300) U/L Urine Color (Yellow) Urine Appearance (Clear) Urine pH (4.6-8.0) Ur Specific [place] (1.005-1.030) Urine Protein (Negative) Urine Glucose (UA) (Negative) mg/dL Urine Ketones (Negative) Urine Blood (Negative) Urine Nitrite (Negative) Urine Bilirubin (Negative) Urine Urobilinogen (0.2) mg/dL Ur Leukocyte Esterase (Negative) U Hyaline Cast (Auto) (0-2) /LPF Urine Microscopic RBC (0-5) /HPF Urine Microscopic WBC (0-5) /HPF Ur Epithelial Cells (None Seen) /HPF Urine Bacteria (None Seen) /HPF Urine Culture Reflexed (NO) Monoscreen POSITIVE A (NEGATIVE) Influenza Type A Ag (NEGATIVE) Influenza Type B Ag (NEGATIVE) RSV (PCR) (NEGATIVE) SARS-CoV-2 (PCR) (NEGATIVE) - Progress Progress: improved, re-examined Progress Note: 07/13/23 15:15 Patient's medical issue is 1 of moderate complexity. The level of complexity in the work-up performed is based on review of the patient's past medical history, review of the patient's medication list, review of the patient's drug allergy list, history of present illness and physical findings on examination. The work-up and the patient includes placement of intravenous line, infusion of normal saline solution, infusion of Zofran intravenously, infusion of Protonix intravenously, CBC, CMP, amylase, lipase, lactic acid, urinalysis, test, flu test, monotest, CT scan of the abdomen pelvis without contrast. 07/13/23 16:42 CAT scan of the abdomen pelvis without contrast was interpreted by the radiologist and I reviewed the impression. The impression states that there is fatty hepatomegaly. There is a nonobstructed normal-appearing appendix. There is no evidence of any acute intra-abdominal or intrapelvic pelvic process. Counseled pt/family regarding: lab results, diagnosis, need for follow-up, rad results Medical Desision Making - Diagnostic Testing Diagnostic test were ordered, analyzed, and reviewed by me: Yes Radiological Interpretation: Reviewed by me, Teleradiologist Report - Risk of complications The pt has a mod risk of morbidity or mortality based on: Need for prescription drug management - Departure Departure Disposition: Home Clinical Impression: UTI (urinary tract infection), Vomiting and diarrhea, Mononucleosis Condition: Stable Critical Care Time: No Referrals: JL DIEHL [ACTIVE STAFF] - Follow up/PCP as directed Additional Instructions: Drink plenty of clear liquids. Do not advance your diet until you are tolerating clear liquids well. Take your medication as prescribed. Follow-up with your primary care provider for further evaluation management. Prescriptions: Ondansetron ODT 4 MG [Zofran Odt 4 mg] 4 mg PO Q6H PRN PRN #10 tablet PRN Reason: Vomiting Cephalexin Mh 500 mg [Keflex 500 mg] 500 mg PO TID #21 cap
[2023-07-13 14:18] VITALS: RESP 20
[2023-07-13] MEDS ORDERED: Zofran 4 MG/2 ML VIAL IV ONE (14:37)
[2023-07-13] MEDS ORDERED: Sodium Chloride 0.9% 1000 ML 1,000 ML IV STA ×2 (14:37→16:12)
[2023-07-13] MEDS ORDERED: PROTONIX 40 MG IV IV ONE ×2 (14:37→15:10)
[2023-07-13] MEDS ORDERED: Zofran 4 MG/2 ML VIAL ONE (15:10)
[2023-07-13] MEDS ORDERED: Sodium Chloride 0.9% 1000 ML 1,000 ML ONE ×2 (15:10→16:22)
[2023-07-13 15:20] LABS: Absolute Neutrophil Ct (ANC) 5.71 x10^3/uL (1.4-6.9); BASOPHIL % 0.2 % (0.0-0.4); Basophil (Absolute #) 0.02 x10^3/uL (0-0.4); Eosinophil % 2.5 % (0.00-5.0); Hemoglobin 12.8 g/dL (12.0-16.0); IMMATURE GRAN # 0.03 x10^3u/L (0.00-0.03); IMMATURE GRAN % 0.4 % (0.00-0.4); Lymphocyte (Absolute #) 1.59 x10^3/uL (1.0-4.6); Lymphocytes % 19.7 % (24.0-44.0); Mean Cell Volume 84.1 fL (78-100); Mean Corpuscular Hemoglobin 27.6 pg (26-32); Mean Corpuscular Hgb Concent. 32.8 g/dL (32-36); Mean Platelet Volume 8.9 fL (7.5-11.0); Monocyte (Absolute #) 0.54 x10^3/uL (0.0-1.3); Monocytes % 6.7 % (0.0-12.0); Neutrophil % 70.5 % (36.0-66.0); Platelet Count 388 x10^3/uL (150-450); Red Blood Count 4.64 x10^6/uL (4.1-5.4); Red Cell Distribution Width 14.5 % (11.5-14.0); White Blood Count 8.1 x10^3/uL (4.0-10.5)
[2023-07-13 15:26] LABS: ALBUMIN 4.1 g/dL (3.5-5.0); ALKALINE PHOSPHATASE 124 U/L (38-126); AMYLASE 66 U/L (30-110); ANION GAP 11.5 MEQ/L (5-15); BLOOD UREA NITROGEN 10 mg/dL (7-17); CHLORIDE 104 mmol/L (98-107); Calcium 8.6 mg/dL (8.4-10.2); Carbon Dioxide 27 mmol/L (22-30); EST GLOMERULAR FILTRATION RATE > 60.0 ML/MIN; Glucose 97 mg/dL (74-106); LIPASE 38 U/L (23-300); Potassium 4.3 mmol/L (3.5-5.1); SGOT/AST 22 U/L (14-36); SGPT/ALT 17 U/L (0-35); SODIUM 139 mmol/L (137-145); Total Protein 7.7 g/dL (6.3-8.2)
[2023-07-13 15:40] LABS: Appearance Cloudy (Clear); Bacteria Rare /HPF (None Seen); Bilirubin Negative (Negative); Blood Small (Negative); Epithelial Cells Moderate /HPF (None Seen); Glucose, Urine Negative (Negative); Hyaline Casts NONE SEEN /LPF (0-2); Ketones Negative (Negative); Leukocyte Esterase Trace (Negative); Nitrite Negative (Negative); Ph 5.5 (4.6-8.0); Protein,Urine Dip Negative (Negative); RBC 0-2 /HPF (0-5); Urobilinogen 0.2 mg/dL (0.2)
[2023-07-13 15:41] LABS: ADD URINE CULTURE? YES (NO)
[2023-07-13] MEDS ORDERED: ROCEPHIN 1 Gm-D5w 50 ml Bag** 1 G/50 ML IVPB IV STA (16:12)
[2023-07-13] MEDS ORDERED: ROCEPHIN 1 Gm-D5w 50 ml Bag** 1 G/50 ML IVPB IV ONE (16:22)
--- NOTE | 2023-07-13 16:24 | XRAY ---
Indication: Nausea, vomiting, and diarrhea. Multiple contiguous axial images obtained through the abdomen and pelvis without contrast. Comparison: None Lung bases clear. Heart not enlarged. Stomach distended with food/fluid. Noncontrasted stomach and bowel loops appear nonobstructed normal appendix. No free fluid/air. 21 cm fatty hepatomegaly. Remaining liver, gallbladder, pancreas, spleen, adrenal glands, kidneys, ureters, bladder, uterus, and aorta are unremarkable for noncontrast exam. Osseous structures intact. No ventral or inguinal hernias. Impression: Fatty hepatomegaly. Remaining CT abdomen/pelvis without contrast exam is normal.
[2023-07-13 16:28] VITALS: PULSE 72
[2023-07-13 16:41] LABS: INFLUENZA A NEGATIVE (NEGATIVE); INFLUENZA B NEGATIVE (NEGATIVE); RESPIRATORY SYNCTIAL VIRUS NEGATIVE (NEGATIVE); SARS-CoV-2 Xpert Express NEGATIVE (NEGATIVE)
[2023-07-13 17:07] VITALS: BP 98/62; TEMP 97.8; O2SAT 98
== END 2023-07-13 17:13 | disposition home or self-care (01) ==
LOC: ED 14:05
DX: N39.0 Urinary tract infection, site not specified (principal); B27.90 Infectious mononucleosis, unspecified without complication; R11.2 Nausea with vomiting, unspecified; R19.7 Diarrhea, unspecified; R10.84 Generalized abdominal pain; Z28.310 Unvaccinated for COVID-19
CPT/HCPCS: 0241U; 36000; 36415; 74176; 80053; 81001; 82150; 83605; 83690; 85025; 86308; 87086; 96360; 96365; 96374; 96375; 99284; J0696; J2405